=== PATIENT | male | born 1935 | race Caucasian/White ===

== ENCOUNTER → 2017-01-23 | Outpatient (CLI) | payer MEDICARE ==
--- NOTE | 2017-01-23 20:00 | XCELERA REPORT ---
[address] [address] Transthoracic Echocardiogram Report Name: KIMBERLY CRAIG Age: 81 yrs Gender: Male : 1935 Patient Status: Outpatient Patient Location: Study Date: 01/23/2017 01:27 PM Height: 70 in Weight: 211 lb BSA: 2.1 m2 Procedure: A two-dimensional transthoracic echocardiogram with color flow and Doppler was performed. Study Quality: Technically suboptimal. The study was technically difficult with many images being suboptimal in quality. Reason For Study: CARDIOMYOPATHY, PVD History: CARDIOMYOPATHY, PVD. Ordering Physician: LETITIA RAMIREZ Performed By: Pascual Ha Interpretation Summary The left ventricle is normal in size. There is mild concentric left ventricular hypertrophy. LV EF is > than 60% Left ventricular systolic function is normal. Doppler measurements suggest impaired left ventricular relaxation, which is associated with grade I/IV or mild diastolic dysfunction The left ventricular wall motion is normal. The left atrium is mildly dilated. There is no evidence of mitral valve prolapse. There is no mitral valve stenosis. There is no mitral regurgitation noted. There is no aortic valve stenosis There is no LVOT obstruction. No aortic regurgitation is present. There is no tricuspid stenosis. There is a trace to mild amount of tricuspid regurgitation There is mild pulmonary hypertension by echo RVSP is 35 mm of Hg , with RA mean of 10. There is no pericardial effusion. MMode/2D Measurements \T\ Calculations RVDd: 2.8 cm LVIDd: 5.1 cm FS: 35.2 % Ao root diam: 3.3 cm IVSd: 1.2 cm LVIDs: 3.3 cm EDV(Teich): 124.7 ml LVPWd: 1.2 cm ESV(Teich): 44.6 ml Ao root area: 8.4 cm2 EF(Teich): 64.2 % LA dimension: 4.6 cm Doppler Measurements \T\ Calculations MV E max mike: MV P1/2t max mike: Ao V2 max: LV V1 max P.6 cm/sec 111.1 cm/sec 142.7 cm/sec 3.6 mmHg MV A max mike: MV P1/2t: 75.1 msec Ao max PG: LV V1 max: 170.3 cm/sec 8.1 mmHg 95.0 cm/sec MV E/A: 0.64 MVA(P1/2t): 2.9 cm2 MV dec slope: 433.2 cm/sec2 PA V2 max: TR max mike: RAP systole: 88.8 cm/sec 249.1 cm/sec 10.0 mmHg PA max P.2 mmHgTR max P.9 mmHg RVSP(TR): 34.9 mmHg Left Ventricle The left ventricle is normal in size. There is mild concentric left ventricular hypertrophy. LV EF is > than 60%. Left ventricular systolic function is normal. Doppler measurements suggest impaired left ventricular relaxation, which is associated with grade I/IV or mild diastolic dysfunction. The left ventricular wall motion is normal. There is no thrombus. There is no ventricular septal defect visualized. Right Ventricle The right ventricle is grossly normal size. Atria The right atrium is normal. The left atrium is mildly dilated. The interatrial septum is intact with no evidence for an atrial septal defect. Mitral Valve There is mild to moderate mitral annular calcification. There is no evidence of mitral valve prolapse. There is no vegetation seen on the mitral valve. There is no mitral valve stenosis. There is no mitral regurgitation noted. Aortic Valve There is no aortic valvular vegetation. There is no aortic valve stenosis. There is no LVOT obstruction. No aortic regurgitation is present. Tricuspid Valve There is no tricuspid stenosis. There is a trace to mild amount of tricuspid regurgitation. There is mild pulmonary hypertension by echo. RVSP is 35 mm of Hg , with RA mean of 10. Pulmonic Valve There is no pulmonic valvular stenosis. There is no pulmonic valvular regurgitation. Great Vessels The aortic root is not well visualized but is probably normal size. Effusions There is no pericardial effusion. : LETITIA RAMIREZ > Rafaela Arceo
--- NOTE | 2017-01-25 10:55 | RADIOLOGY REPORT (SQ) ---
EXAM DESCRIPTION: ARTERIAL LOWER EXTREM BILAT COMPLETED DATE/TIME: 01/23/2017 3:42 pm REASON FOR STUDY: CARDIOMYOPATHY, PVD I42.9 CARDIOMYOPATHY, UNSPECIFIED I73.9 PERIPHERAL VASCULAR DISEASE, UNSPECIFIED COMPARISON: 10/21/2014 TECHNIQUE: Dynamic and static barajas scale and color images acquired of the lower extremity arteries. Additional selected spectral images recorded. ABIs recorded. LIMITATIONS: None. FINDINGS: RIGHT LEG: ABIS: 0.9 to 1.0 INFLOW ARTERIES: Normal, no obstruction evident. FEMORAL ARTERIES:Multiphasic waveforms. Normal, no velocity elevation to suggest focal stenosis. Norm al color Doppler evaluation. No aneurysm. POPLITEAL ARTERY:Multiphasic waveforms. Normal, no velocity elevation to suggest focal stenosis. Norm al color Doppler evaluation. No aneurysm. PATENT TIBIOPERONEAL TRUNK AND 3 VESSEL RUNOFF: Yes, normal vessels. TBI: Not performed. OTHER: No other significant finding. LEFT LEG: ABIS: Normal, over 1.0. INFLOW ARTERIES: Normal, no obstruction evident. FEMORAL ARTERIES:Multiphasic waveforms. Normal, no velocity elevation to suggest focal stenosis. Norm al color Doppler evaluation. No aneurysm. POPLITEAL ARTERY:Multiphasic waveforms. Normal, no velocity elevation to suggest focal stenosis. Norm al color Doppler evaluation. No aneurysm. PATENT TIBIOPERONEAL TRUNK AND 3 VESSEL RUNOFF: Yes, normal vessels. TBI: Not performed. OTHER: No other significant finding. IMPRESSION: NORMAL BILATERAL LOWER EXTREMITY ARTERIAL DOPPLER WITH ABIs. COMMENT: [facility] NORMAL: Greater than 1.0 MINIMAL DISEASE: 0.9 to 1.0 CLAUDICATION: 0.5 to 0.9 SEVERE ARTERIAL DISEASE: Less than 0.5 [facility] NORMAL: Greater than 1.0 (1.2 If Heavy Calcifications) NORMAL TO MILD ISCHEMIA: 0.8 to 1.0 MODERATE ISCHEMIA: 0.4 to 0.8 SEVERE ISCHEMIA: Less than 0.4 TECHNICAL DOCUMENTATION: JOB ID: [id number]- All Rights Reserved
== END ==
LOC: SP 12:38
PROVIDERS: ATTEND Family Medicine
DX: I42.9 Cardiomyopathy, unspecified (principal); I73.9 Peripheral vascular disease, unspecified; I10 Essential (primary) hypertension
CPT/HCPCS: 93306; 93925

== ENCOUNTER → 2017-10-05 | Outpatient (CLI) | payer MEDICARE | LOC: OD 09:46 | PROVIDERS: ATTEND Physician Assistant Medical | DX: E87.5 Hyperkalemia (principal) | CPT/HCPCS: 36415; 84132 ==

== ENCOUNTER → 2017-12-19 | Outpatient (CLI) | payer MEDICARE ==
--- NOTE | 2017-12-19 16:43 | RADIOLOGY REPORT (SQ) ---
EXAM DESCRIPTION: CHEST PA/LATERAL; RIBS LEFT W/O PA CHEST COMPLETED DATE/TIME: 12/19/2017 4:32 pm REASON FOR STUDY: RIB PAIN, PLEURODYNIA; RIB PAIN R07.81 PLEURODYNIA pain left ribs, radiating into the back. No known injury. 3 weeks of pain COMPARISON: Two-view chest 05/12/2014 TECHNIQUE: PA and lateral views of the chest and additional 4 views of the left ribs acquired. NUMBER OF VIEWS: Six view. LIMITATIONS: None. FINDINGS: CXR: No pneumothorax. No pleural effusion. No atelectasis or infiltrates. Stable mild t o moderate cardiomegaly. Bones are osteopenic. RIBS: No displaced rib fractures. No lytic or blastic bony lesions. OTHER: No other significant finding. IMPRESSION: NO PNEUMOTHORAX. NO DISPLACED RIB FRACTURES. COMMENT: SITE OF TRAUMA/COMPLAINT MARKED/STAMP COMPLETED: Yes TECHNICAL DOCUMENTATION: JOB ID: [id number] [employer]- All Rights Reserved Reading location - IP/workstation name: [facility]
--- NOTE | 2017-12-19 16:43 | RADIOLOGY REPORT (SQ) ---
EXAM DESCRIPTION: CHEST PA/LATERAL; RIBS LEFT W/O PA CHEST COMPLETED DATE/TIME: 12/19/2017 4:32 pm REASON FOR STUDY: RIB PAIN, PLEURODYNIA; RIB PAIN R07.81 PLEURODYNIA pain left ribs, radiating into the back. No known injury. 3 weeks of pain COMPARISON: Two-view chest 05/12/2014 TECHNIQUE: PA and lateral views of the chest and additional 4 views of the left ribs acquired. NUMBER OF VIEWS: Six view. LIMITATIONS: None. FINDINGS: CXR: No pneumothorax. No pleural effusion. No atelectasis or infiltrates. Stable mild t o moderate cardiomegaly. Bones are osteopenic. RIBS: No displaced rib fractures. No lytic or blastic bony lesions. OTHER: No other significant finding. IMPRESSION: NO PNEUMOTHORAX. NO DISPLACED RIB FRACTURES. COMMENT: SITE OF TRAUMA/COMPLAINT MARKED/STAMP COMPLETED: Yes TECHNICAL DOCUMENTATION: JOB ID: [id number] [employer]- All Rights Reserved Reading location - IP/workstation name: [email or web address]
== END ==
LOC: OD 16:10
PROVIDERS: ATTEND Family Medicine
DX: R07.81 Pleurodynia (principal)
CPT/HCPCS: 71046

== ENCOUNTER → 2017-12-26 | Outpatient (CLI) | payer MEDICARE ==
--- NOTE | 2017-12-26 11:18 | RADIOLOGY REPORT (SQ) ---
EXAM DESCRIPTION: CT ABD/PELVIS NO ORAL OR IV COMPLETED DATE/TIME: 12/26/2017 10:50 am REASON FOR STUDY: UNSPECIFIED ABDOMINAL PAIN/LEFT FLANK PAIN R10.9 UNSPECIFIED ABDOMINAL PAIN Left flank pain COMPARISON: 04/28/2014 CT abdomen pelvis TECHNIQUE: CT scan of the abdomen and pelvis performed without intravenous or oral contrast. Images reviewed with lung, soft tissue, and bone windows. Reconstructed coronal and sagittal MPR images revi ewed. All images stored on PACS. All CT scanners at this facility use dose modulation, iterative reconstruction, and/or weight based d osing when appropriate to reduce radiation dose to as low as reasonably achievable (ALARA). [facility]: Dose Right [facility]: CareDose [facility]: Dose Right [facility]: Teradose 4D [facility]: Smart ComVibe RADIATION DOSE: CT Rad equipment meets quality standard of care and radiation dose reduction techniq ues were employed. CTDIvol: 14.5 mGy. DLP: 818 mGy-cm.mGy. LIMITATIONS: None. FINDINGS: LOWER CHEST: Moderate size hiatal hernia. Trace left pleural effusion new compared to . Aortic and mitral valve calcifications. NON-CONTRASTED LIVER, SPLEEN, ADRENALS: Evaluation limited by lack of IV contrast. No identified sign ificant masses. PANCREAS: No masses. No peripancreatic inflammatory changes. GALLBLADDER: No identified stones by CT criteria. No inflammatory changes to suggest cholecystitis. RIGHT KIDNEY AND URETER: No suspicious masses. Assessment limited by lack of IV contrast. No signif icant calcifications. No hydronephrosis or hydroureter. LEFT KIDNEY AND URETER: No suspicious masses. Assessment limited by lack of IV contrast. No signifi cant calcifications. No hydronephrosis or hydroureter. AORTA AND RETROPERITONEUM: No aneurysm. No retroperitoneal masses or adenopathy. BOWEL AND PERITONEAL CAVITY: No CT evidence of free intraperitoneal air or fluid. No bowel obstructi on. Heavy burden of diverticuli along the descending and sigmoid colon without CT signs of acute div erticulitis. No pericolic acute inflammation, abscess, free air or free fluid. APPENDIX: Normal. PELVIS, BLADDER, AND ABDOMINAL WALL:No abnormal masses. No free fluid. Bladder normal. BONES: No significant findings. OTHER: No other significant finding. IMPRESSION: Colonic diverticulosis without CT evidence of diverticulitis. No CT evidence of obstructive urinary stones. Trace left pleural effusion with minimal left basilar airspace disease likely atelectasis. COMMENT: Quality ID # [id number]: Final reports with documentation of one or more dose reduction techniques (e.g., Automated exposure control, adjustment of the mA and/or kV according to patient size, use of iterative reconstruction technique) TECHNICAL DOCUMENTATION: JOB ID: [id number] [employer]- All Rights Reserved Reading location - IP/workstation name: [facility]ON LICENSE OF [facility]
== END ==
LOC: RAD 10:21
PROVIDERS: ATTEND Family Medicine
DX: R10.9 Unspecified abdominal pain (principal)
CPT/HCPCS: 74176

== ENCOUNTER → 2018-06-26 | Outpatient (CLI) | payer MEDICARE ==
--- NOTE | 2018-06-26 09:57 | RADIOLOGY REPORT (SQ) ---
EXAM DESCRIPTION: CHEST PA/LATERAL COMPLETED DATE/TIME: 06/26/2018 9:04 am REASON FOR STUDY: COUGH COMPARISON: 05/12/2014 EXAM PARAMETERS: NUMBER OF VIEWS: two views TECHNIQUE: Digital Frontal and Lateral radiographic views of the chest acquired. RADIATION DOSE: NA LIMITATIONS: none FINDINGS: LUNGS AND PLEURA: Moderate left pleural effusion and associated airspace disease. Right l onofre is clear. MEDIASTINUM AND HILAR STRUCTURES: No masses or contour abnormalities. HEART AND VASCULAR STRUCTURES: Stable heart size. No evidence for failure. BONES: No acute findings. HARDWARE: None in the chest. OTHER: No other significant finding. IMPRESSION: Left lower lobe pneumonia. TECHNICAL DOCUMENTATION: JOB ID: [id number] [employer]- All Rights Reserved Reading location - IP/workstation name: [email or web address]
[2018-06-26 10:08] LABS: ANION GAP 6 (5-19); BLOOD UREA NITROGEN 42 mg/dL (7-20); CALCIUM 8.2 mg/dL (8.4-10.2); CARBON DIOXIDE 24 mmol/L (22-30); CHLORIDE 114 mmol/L (98-107); GLUCOSE 174 mg/dL (75-110); POTASSIUM 4.1 mmol/L (3.6-5.0); SODIUM 143.8 mmol/L (137-145)
== END ==
LOC: OD 08:49
PROVIDERS: ATTEND Family Medicine
DX: I10 Essential (primary) hypertension (principal); R05 Cough
CPT/HCPCS: 36415; 71046; 80048

== ENCOUNTER → 2018-06-28 | Outpatient (CLI) | payer MEDICARE ==
[2018-06-28 10:21] LABS: ABSOLUTE BASOPHILS # (AUTO) 0.1 10^3/uL (0.0-0.2); ABSOLUTE EOSINOPHILS # (AUTO) 0.2 10^3/uL (0.0-0.6); ABSOLUTE LYMPHOCYTES (AUTO) 1.4 10^3/uL (0.5-4.7); ABSOLUTE MONOCYTES (AUTO) 0.5 10^3/uL (0.1-1.4); ABSOLUTE NEUT (AUTO) 5.7 10^3/uL (1.7-8.2); BASOPHILS % (AUTO) 0.8 % (0-2); EOSINOPHILS % (AUTO) 3.1 % (0-6); HEMATOCRIT 33.5 % (37.9-51.0); HEMOGLOBIN 11.3 g/dL (13.5-17.0); LYMPHOCYTES % (AUTO) 18.1 % (13-45); MEAN CORPUSCULAR HEMOGLOBIN 30.2 pg (27.0-33.4); MEAN CORPUSCULAR HGB CONC 33.7 g/dL (32.0-36.0); MEAN CORPUSCULAR VOLUME 90 fl (80-97); MONOCYTES % (AUTO) 6.4 % (3-13); PLATELET COUNT 198 10^3/uL (150-450); RED BLOOD COUNT 3.74 10^6/uL (4.35-5.55); RED CELL DISTRIBUTION WIDTH 16.2 % (11.5-14.0); SEGMENTED NEUTROPHILS % (AUTO) 71.6 % (42-78); TOTAL CELLS COUNTED % (AUTO) 100 %; WHITE BLOOD COUNT 7.9 10^3/uL (4.0-10.5)
[2018-06-28 10:52] LABS: ANION GAP 5 (5-19); BLOOD UREA NITROGEN 43 mg/dL (7-20); CALCIUM 8.2 mg/dL (8.4-10.2); CARBON DIOXIDE 27 mmol/L (22-30); CHLORIDE 110 mmol/L (98-107); GLUCOSE 164 mg/dL (75-110); POTASSIUM 4.5 mmol/L (3.6-5.0); SODIUM 141.7 mmol/L (137-145)
== END ==
LOC: OD 09:10
PROVIDERS: ATTEND Family Medicine
DX: N18.9 Chronic kidney disease, unspecified (principal)
CPT/HCPCS: 36415; 80048; 85025

== ENCOUNTER → 2018-07-05 | Outpatient (CLI) | payer MEDICARE ==
--- NOTE | 2018-07-05 09:50 | RADIOLOGY REPORT (SQ) ---
EXAM DESCRIPTION: CHEST PA/LATERAL COMPLETED DATE/TIME: 07/05/2018 9:03 am REASON FOR STUDY: PNEUMONIA OF LEFT LOWER LOBE DUE TO INFECTIOUS ORGANISM COMPARISON: Chest films 12/19/2014 Left rib detail films 12/19/2017 Two-view chest 06/26/2018 EXAM PARAMETERS: NUMBER OF VIEWS: two views TECHNIQUE: Digital Frontal and Lateral radiographic views of the chest acquired. RADIATION DOSE: NA LIMITATIONS: none FINDINGS: LUNGS AND PLEURA: Left basilar airspace disease is present, atelectasis versus pneumonia. There is a left-sided pleural effusion present, small moderate size. Decubitus views of the chest w ould be useful to determine how much fluid is present. Right lung clear. No right pleural effusion. No right or left pneumothorax MEDIASTINUM AND HILAR STRUCTURES: No masses or contour abnormalities. HEART AND VASCULAR STRUCTURES: Mild cardiomegaly BONES: No acute findings. HARDWARE: None in the chest. OTHER: No other significant finding. IMPRESSION: Left basilar consolidation atelectasis versus pneumonia. Suspect small left pleural eff usion. Recommend decubitus plain films of the chest, or CT chest for followup TECHNICAL DOCUMENTATION: JOB ID: [id number]- All Rights Reserved Reading location - IP/workstation name: [email or web address]
== END ==
LOC: OD 08:47
PROVIDERS: ATTEND Family Medicine
DX: J18.1 Lobar pneumonia, unspecified organism (principal)
CPT/HCPCS: 71046

== ENCOUNTER → 2018-07-11 | Outpatient (CLI) | payer MEDICARE ==
--- NOTE | 2018-07-11 10:37 | RADIOLOGY REPORT (SQ) ---
EXAM DESCRIPTION: U/S LTD DUPLEX ART/EARNEST FLOW COMPLETED DATE/TIME: 07/11/2018 9:51 am REASON FOR STUDY: CHRONIC KIDNEY DISEASE, STAGE 3 (MODERAT N18.3 CHRONIC KIDNEY DISEASE, STAGE 3 (M ODERATE) I50.9 HEART FAILURE, UNSPECIFIED COMPARISON: CT abdomen pelvis 12/26/2017 TECHNIQUE: Realtime and static grayscale images acquired. Selected color Doppler, velocities and spe ctral images recorded. LIMITATIONS: Body habitus, midline bowel gas. Remainder of the visualized the renal artery origins off the aorta FINDINGS: RIGHT KIDNEY: RENAL ARTERY VELOCITIES: At the hilum, 64 cm/sec. Segmental artery velocity 54 cm/sec. RENAL VEIN: Color doppler flow present, patent. VELOCITY RATIO: Normal. Normal waveforms. KIDNEY: 9 cm in length with diffuse cortical thinning and increased echogenicity. LEFT KIDNEY: RENAL ARTERY VELOCITIES: At the hilum, 75 cm/sec. Segmental artery velocity 37 cm/sec. RENAL VEIN: Color doppler flow present, patent. VELOCITY RATIO: Normal. Normal waveforms. KIDNEY: 8.5 cm in length with diffuse cortical thinning and increased echogenicity BLADDER: Decompressed, not well seen. OTHER: No other significant finding. IMPRESSION: NO DOPPLER EVIDENCE OF HEMODYNAMICALLY SIGNIFICANT RENAL ARTERY STENOSIS. COMMENT: NORMAL RENAL ARTERY/AORTA VELOCITY RATIO IS LESS THAN OR EQUAL TO 3.5. TECHNICAL DOCUMENTATION: JOB ID: [id number] [employer]- All Rights Reserved Reading location - IP/workstation name: [email or web address]
== END ==
LOC: RAD 08:59
PROVIDERS: ATTEND Internal Medicine Nephrology
DX: I13.0 Hypertensive heart and chronic kidney disease with heart failure and stage 1 through stage 4 chronic kidney disease, or unspecified chronic kidney disease (principal); N18.3 Chronic kidney disease, stage 3 (moderate); I50.9 Heart failure, unspecified; R06.00 Dyspnea, unspecified
CPT/HCPCS: 93976

== ENCOUNTER → 2018-07-19 | Outpatient (CLI) | payer MEDICARE ==
--- NOTE | 2018-07-19 15:45 | RADIOLOGY REPORT (SQ) ---
EXAM DESCRIPTION: CHEST PA/LATERAL COMPLETED DATE/TIME: 07/19/2018 2:50 pm REASON FOR STUDY: L LOWER LOBE PNEUMONIA, UNSPECIFIED ORGANISM COMPARISON: 07/05/2018 EXAM PARAMETERS: NUMBER OF VIEWS: two views TECHNIQUE: Digital Frontal and Lateral radiographic views of the chest acquired. RADIATION DOSE: NA LIMITATIONS: none FINDINGS: LUNGS AND PLEURA: There is persistent left lower lobe consolidation along with pleural eff usion. Right lung field remains clear. No pneumothorax. MEDIASTINUM AND HILAR STRUCTURES: No masses or contour abnormalities. HEART AND VASCULAR STRUCTURES: Heart normal size. No evidence for failure. BONES: No acute findings. HARDWARE: None in the chest. OTHER: No other significant finding. IMPRESSION: Minimal change in the chest with persistent left lower lobe pneumonia and probable effus ion. TECHNICAL DOCUMENTATION: JOB ID: [id number] [employer]- All Rights Reserved Reading location - IP/workstation name: [email or web address]
== END ==
LOC: OD 14:40
PROVIDERS: ATTEND Family Medicine
DX: J18.1 Lobar pneumonia, unspecified organism (principal)
CPT/HCPCS: 71046

== ENCOUNTER → 2018-07-23 | Outpatient (CLI) | payer MEDICARE ==
[2018-07-23 09:29] LABS: ABSOLUTE BASOPHILS # (AUTO) 0.1 10^3/uL (0.0-0.2); ABSOLUTE EOSINOPHILS # (AUTO) 0.3 10^3/uL (0.0-0.6); ABSOLUTE LYMPHOCYTES (AUTO) 1.1 10^3/uL (0.5-4.7); ABSOLUTE MONOCYTES (AUTO) 0.6 10^3/uL (0.1-1.4); ABSOLUTE NEUT (AUTO) 4.5 10^3/uL (1.7-8.2); BASOPHILS % (AUTO) 1.1 % (0-2); EOSINOPHILS % (AUTO) 4.5 % (0-6); HEMATOCRIT 30.8 % (37.9-51.0); HEMOGLOBIN 10.5 g/dL (13.5-17.0); LYMPHOCYTES % (AUTO) 16.4 % (13-45); MEAN CORPUSCULAR HEMOGLOBIN 30.8 pg (27.0-33.4); MEAN CORPUSCULAR VOLUME 91 fl (80-97); MONOCYTES % (AUTO) 8.7 % (3-13); PLATELET COUNT 187 10^3/uL (150-450); RED BLOOD COUNT 3.41 10^6/uL (4.35-5.55); RED CELL DISTRIBUTION WIDTH 16.2 % (11.5-14.0); SEGMENTED NEUTROPHILS % (AUTO) 69.3 % (42-78); TOTAL CELLS COUNTED % (AUTO) 100 %; WHITE BLOOD COUNT 6.5 10^3/uL (4.0-10.5)
[2018-07-23 10:05] LABS: ALANINE AMINOTRANSFERASE 15 U/L (21-72); ALKALINE PHOSPHATASE 105 U/L (38-126); ANION GAP 7 (5-19); ASPARTATE AMINO TRANSFERASE 12 U/L (17-59); BILIRUBIN,DIRECT 0.3 mg/dL (0.0-0.4); BILIRUBIN,TOTAL 0.6 mg/dL (0.2-1.3); BLOOD UREA NITROGEN 61 mg/dL (7-20); CALCIUM 8.5 mg/dL (8.4-10.2); CARBON DIOXIDE 27 mmol/L (22-30); CHLORIDE 110 mmol/L (98-107); GLUCOSE 236 mg/dL (75-110); POTASSIUM 4.8 mmol/L (3.6-5.0); SODIUM 144.1 mmol/L (137-145); TOTAL PROTEIN 5.6 g/dL (6.3-8.2)
== END ==
LOC: OD 08:52
PROVIDERS: ATTEND Family Medicine
DX: I12.9 Hypertensive chronic kidney disease with stage 1 through stage 4 chronic kidney disease, or unspecified chronic kidney disease (principal); N18.9 Chronic kidney disease, unspecified; E11.22 Type 2 diabetes mellitus with diabetic chronic kidney disease; E78.49 Other hyperlipidemia
CPT/HCPCS: 36415; 80053; 83036; 85025

== ENCOUNTER → 2018-07-24 | Outpatient (CLI) | payer MEDICARE ==
[2018-07-24 11:46] LABS: HEMATOCRIT 30.7 % (37.9-51.0); HEMOGLOBIN 10.5 g/dL (13.5-17.0); MEAN CORPUSCULAR HEMOGLOBIN 30.8 pg (27.0-33.4); MEAN CORPUSCULAR HGB CONC 34.2 g/dL (32.0-36.0); MEAN CORPUSCULAR VOLUME 90 fl (80-97); PLATELET COUNT 176 10^3/uL (150-450); RED BLOOD COUNT 3.41 10^6/uL (4.35-5.55); RED CELL DISTRIBUTION WIDTH 16.5 % (11.5-14.0); WHITE BLOOD COUNT 6.2 10^3/uL (4.0-10.5)
[2018-07-24 12:07] LABS: ANION GAP 9 (5-19); BLOOD UREA NITROGEN 58 mg/dL (7-20); CALCIUM 8.6 mg/dL (8.4-10.2); CARBON DIOXIDE 25 mmol/L (22-30); CHLORIDE 109 mmol/L (98-107); GLUCOSE 261 mg/dL (75-110); POTASSIUM 4.5 mmol/L (3.6-5.0); SODIUM 142.7 mmol/L (137-145)
== END ==
LOC: OD 10:32
PROVIDERS: ATTEND Internal Medicine Nephrology
DX: N18.3 Chronic kidney disease, stage 3 (moderate) (principal); I50.9 Heart failure, unspecified; E87.5 Hyperkalemia
CPT/HCPCS: 36415; 80048; 83735; 85027

== ENCOUNTER → 2018-07-25 | Outpatient (CLI) | payer MEDICARE ==
--- NOTE | 2018-07-25 14:09 | RADIOLOGY REPORT (SQ) ---
EXAM DESCRIPTION: CT CHEST WITHOUT COMPLETED DATE/TIME: 07/25/2018 1:57 pm REASON FOR STUDY: J90 PLEURAL EFFUSION, NOT ELSEWHERE CLASSIFIED J90 PLEURAL EFFUSION, NOT ELSEWHER E CLASSIFIED COMPARISON: Two-view chest 07/19/2018, 07/05/2018, 06/26/2018 TECHNIQUE: CT scan performed of the chest without intravenous contrast. Images reviewed with lung, soft tissue and bone windows. Reconstructed coronal and sagittal MPR images reviewed. All images st ored on PACS. All CT scanners at this facility use dose modulation, iterative reconstruction, and/or weight based d osing when appropriate to reduce radiation dose to as low as reasonably achievable (ALARA). [facility]: Dose Right [facility]: CareDose [facility]: Dose Right [facility]: Teradose 4D [facility]: [employer] RADIATION DOSE: 13.3 mGy. LIMITATIONS: No technical limitations. FINDINGS: LUNGS AND PLEURA: Moderate freely layering left pleural effusion, similar compared to prio r chest films dating back to 06/26/2018. There is bandlike atelectasis in the left posterior lower lobe. No right pleural effusion. No focal right-sided infiltrates. No right or left pneumothorax. HILAR AND MEDIASTINAL STRUCTURES: No identified masses or abnormal nodes. No obvious aneurysm. HEART AND VASCULAR STRUCTURES: No aneurysm. No pericardial effusion. Calcified coronary arteries, m itral annulus and aortic valve. No ascending thoracic aorta ectasia. UPPER ABDOMEN: Varices are present along the greater curvature of the stomach. No hepatosplenomegaly . Small hiatal hernia. THYROID AND OTHER SOFT TISSUES: No masses. No adenopathy. BONES: No significant finding. HARDWARE: None in the chest. OTHER: No other significant findings. IMPRESSION: Moderate size freely layering left pleural effusion, adjacent left basilar atelectasis TECHNICAL DOCUMENTATION: JOB ID: [id number] Quality ID # [id number]: Final reports with documentation of one or more dose reduction techniques (e.g., Au tomated exposure control, adjustment of the mA and/or kV according to patient size, use of iterative reconstruction technique) 2010 [employer]- All Rights Reserved Reading location - IP/workstation name: [email or web address]
== END ==
LOC: RAD 14:05
PROVIDERS: ATTEND Family Medicine
DX: J90 Pleural effusion, not elsewhere classified (principal)
CPT/HCPCS: 71250

== ENCOUNTER 2018-07-26 09:10 | Inpatient (IN) | payer MEDICARE ==
--- NOTE | 2018-07-26 09:39 | ER Document Report ---
ED General - General Chief Complaint: Abnormal Lab Results Stated Complaint: SIDE PAIN Time Seen by Provider: 07/26/18 09:33 Primary Care Provider: Genaro WANG MD [Primary Care Provider] - Follow up as needed Notes: Chief complaint: Shortness of breath on exertion History of complain:( obtained from----patient) 83 years old male sent over here by primary care physician Dr. Faulkner for direct admission. Because of shortness of breath on exertion and recent CT showed left pleural effusion. Onset: Gradual Duration: Last few days Severity: Mild to moderate Quality: Shortness of breath Context: Unknown Exacerbating factor and relieving factors: Exertion REVIEW OF SYSTEMS: CONSTITUTIONAL : Denies fever, chills, or sweats. Denies recent illness. EENT: Denies eye, ear, throat, or mouth pain or symptoms. Denies nasal or sinus congestion or discharge. Denies throat, tongue, or mouth swelling or difficulty swallowing. CARDIOVASCULAR: Denies chest pain. Denies palpitations or racing or irregular heart beat. Denies ankle edema. RESPIRATORY: Denies cough, cold, GASTROINTESTINAL: Denies distention. Denies nausea, vomiting, or diarrhea. Denies blood in vomitus, stools, or per rectum. Denies black, tarry stools. Denies constipation. GENITOURINARY: Denies difficulty urinating, painful urination, burning, frequency, blood in urine, or discharge. FEMALE GENITOURINARY: Denies vaginal bleeding, heavy or abnormal periods, irregular periods. Denies vaginal discharge or odor. MUSCULOSKELETAL: Denies back or neck pain or stiffness. Denies joint pain or swelling. SKIN: Denies rash, lesions or sores. HEMATOLOGIC : Denies easy bruising or bleeding. LYMPHATIC: Denies swollen, enlarged glands. NEUROLOGICAL: Denies confusion or altered mental status. Denies passing out or loss of consciousness. Denies dizziness or lightheadedness. Denies headache. Denies weakness or paralysis or loss of use of either side. Denies problems with gait or speech. Denies sensory loss, numbness, or tingling. Denies seizures. PSYCHIATRIC: Denies anxiety or stress. Denies depression, suicidal ideation, or homicidal ideation. ALL OTHER SYSTEMS REVIEWED AND NEGATIVE. PHYSICAL EXAMINATION: GENERAL: Well-appearing, well-nourished and in no acute distress. HEAD: Atraumatic, normocephalic. EYES: Pupils equal round and reactive to light, extraocular movements intact, conjunctiva are normal. ENT: Nares patent, oropharynx clear without exudates. Moist mucous membranes. NECK: Normal range of motion, supple without lymphadenopathy LUNGS: Bilaterally diminished breath sounds HEART: Regular rate and rhythm without murmurs ABDOMEN: Soft, nontender, nondistended abdomen. No guarding, no rebound. No masses appreciated. Examination of genitals-deferred Musculoskeletal: Bilateral lower leg 1-2+ pitting edema NEUROLOGICAL: Cranial nerves grossly intact. Normal speech, normal gait. Normal sensory, motor exams PSYCH: Normal mood, normal affect. SKIN: Warm, Dry, normal turgor, no rashes or lesions noted. Dictation was performed using [employer] voice recognition software TRAVEL OUTSIDE OF THE [place] IN LAST 30 DAYS: No - HPI Notes: Dictated - Related Data Allergies/Adverse Reactions: No Known Allergies Allergy (Verified 07/26/18 09:11) Past Medical History - Social History Smoking Status: Unknown if Ever Smoked Frequency of alcohol use: None Drug Abuse: None Lives with: Family Family History: Reviewed & Not Pertinent - Past Medical History Cardiac Medical History: Reports: Hx Hypertension Denies: Hx Coronary Artery Disease, Hx Heart Attack Pulmonary Medical History: Denies: Hx Asthma, Hx Bronchitis, Hx COPD, Hx Pneumonia Neurological Medical History: Denies: Hx Cerebrovascular Accident, Hx Seizures Endocrine Medical History: Reports: Hx Diabetes Mellitus Type 2 Renal/ Medical History: Reports: Hx Kidney Stones Musculoskeletal Medical History: Denies Hx Arthritis - Immunizations Hx Diphtheria, Pertussis, Tetanus Vaccination: Yes Hx Pneumococcal Vaccination: 03/12/15 Review of Systems - Review of Systems Notes: Dictated Physical Exam - Vital signs Vitals: Temp Pulse Resp BP Pulse Ox 97.3 F 64 18 101/52 L 97 07/26/18 09:24 07/26/18 09:24 07/26/18 09:24 07/26/18 09:24 07/26/18 09:24 - Notes Notes: Dictated Course - Vital Signs Vital signs: Temp Pulse Resp BP Pulse Ox 97.3 F 64 18 101/52 L 97 07/26/18 09:24 07/26/18 09:24 07/26/18 09:24 07/26/18 09:24 07/26/18 09:24 Discharge - Discharge Clinical Impression: Pleural effusion Condition: Fair Disposition: ADMITTED INPATIENT Admitting Provider: Kaushik Referrals: Genaro WANG MD [Primary Care Provider] - Follow up as needed
[2018-07-26 10:24] LABS: ABSOLUTE BASOPHILS # (AUTO) 0.1 10^3/uL (0.0-0.2); ABSOLUTE EOSINOPHILS # (AUTO) 0.4 10^3/uL (0.0-0.6); ABSOLUTE LYMPHOCYTES (AUTO) 1.4 10^3/uL (0.5-4.7); ABSOLUTE MONOCYTES (AUTO) 0.6 10^3/uL (0.1-1.4); ABSOLUTE NEUT (AUTO) 4.2 10^3/uL (1.7-8.2); BASOPHILS % (AUTO) 1.2 % (0-2); EOSINOPHILS % (AUTO) 5.6 % (0-6); HEMATOCRIT 32.5 % (37.9-51.0); LYMPHOCYTES % (AUTO) 21.2 % (13-45); MEAN CORPUSCULAR HEMOGLOBIN 31.1 pg (27.0-33.4); MEAN CORPUSCULAR VOLUME 92 fl (80-97); MONOCYTES % (AUTO) 8.5 % (3-13); PLATELET COUNT 198 10^3/uL (150-450); RED BLOOD COUNT 3.55 10^6/uL (4.35-5.55); RED CELL DISTRIBUTION WIDTH 16.5 % (11.5-14.0); SEGMENTED NEUTROPHILS % (AUTO) 63.5 % (42-78); TOTAL CELLS COUNTED % (AUTO) 100 %; WHITE BLOOD COUNT 6.6 10^3/uL (4.0-10.5)
--- NOTE | 2018-07-26 10:45 | EKG REPORT ---
SEVERITY:- NORMAL ECG - SINUS RHYTHM : Confirmed by: Rafaela Arceo MD 26-Jul-2018 10:44:53
[2018-07-26 10:53] LABS: ALANINE AMINOTRANSFERASE 16 U/L (21-72); ALBUMIN 3.2 g/dL (3.5-5.0); ALKALINE PHOSPHATASE 120 U/L (38-126); ANION GAP 7 (5-19); ASPARTATE AMINO TRANSFERASE 13 U/L (17-59); BILIRUBIN,DIRECT 0.4 mg/dL (0.0-0.4); BILIRUBIN,TOTAL 0.5 mg/dL (0.2-1.3); BLOOD UREA NITROGEN 55 mg/dL (7-20); CALCIUM 8.5 mg/dL (8.4-10.2); CARBON DIOXIDE 27 mmol/L (22-30); CHLORIDE 110 mmol/L (98-107); GLUCOSE 206 mg/dL (75-110); POTASSIUM 4.3 mmol/L (3.6-5.0); SODIUM 144.4 mmol/L (137-145); TOTAL PROTEIN 5.8 g/dL (6.3-8.2)
[2018-07-26] MEDS ORDERED: CEFEPIME 1 GM/D5W RTU 1 GM/50 ML RTUPB IV SCH (11:00)
[2018-07-26 11:11] LABS: INTERNATIONAL RATION (INR) 1.03
[2018-07-26] MEDS ORDERED: DEXTROSE 50%-WATER 25 GM/50 ML DISP.SYRIN IV PRN ×2 (11:29)
[2018-07-26] MEDS ORDERED: DEXTROSE 40% GEL 15 GM TUBE PO PRN ×2 (11:29)
[2018-07-26] MEDS ORDERED: GLUCAGON,HUMAN RECOMB 1 MG INJ IM PRN (11:29)
[2018-07-26] MEDS: INSULIN GLARGINE,HUM.REC.ANLOG 300 UNIT/3 ML INSULN.PEN SUBCUT SCH ×2 (12:40→21:35)
--- NOTE | 2018-07-26 15:40 | RADIOLOGY REPORT (SQ) ---
EXAM DESCRIPTION: CHEST SINGLE VIEW COMPLETED DATE/TIME: 07/26/2018 3:26 pm REASON FOR STUDY: S/P LEFT THORACENTESIS COMPARISON: Two-view chest 07/19/2018 CT chest 07/25/2018 EXAM PARAMETERS: NUMBER OF VIEWS: One view. TECHNIQUE: Single frontal radiographic view of the chest acquired. RADIATION DOSE: NA LIMITATIONS: None. FINDINGS: LUNGS AND PLEURA: Post left thoracentesis with removal of 800 mL of clear yellow fluid, se nt for testing as per Dr. Faulkner. No pneumothorax left chest. Minimal left basilar atelectasis. Right lung well inflated and clear. No right pleural effusion or pneumothorax. MEDIASTINUM AND HILAR STRUCTURES: No masses. Contour normal. HEART AND VASCULAR STRUCTURES: Mild cardiomegaly, stable BONES: No acute findings. HARDWARE: None in the chest. OTHER: No other significant finding. IMPRESSION: No pneumothorax post left thoracentesis. Minimal persistent left basilar atelectasis. TECHNICAL DOCUMENTATION: JOB ID: [id number] [employer]- All Rights Reserved Reading location - IP/workstation name: [email or web address]
--- NOTE | 2018-07-26 15:43 | RADIOLOGY REPORT (SQ) ---
EXAM DESCRIPTION: U/S THORACENTESIS WITH IMAGING COMPLETED DATE/TIME: 07/26/2018 3:34 pm REASON FOR STUDY: plueal effusion COMPARISON: None. LIMITATIONS: None. PROCEDURE: Procedure, risks, benefit, and alternative explained to patient who then gave written con sent. The posterior left chest wall was marked using ultrasound guidance. A time-out was called for correct marking verification. Chest prepped and draped using sterile technique. Local anesthesia ac hieved using 6 ml of 1% lidocaine injection. A 6fr Safe-T- Centesis set was introduced into the left pleural space. Fluid was aspirated. The catheter was removed and the entry site was covered with s terile bandage. No immediate complications noted. Fluid was sent for testing as per Dr. Faulkner. No p neumothorax on immediate post procedure chest film Images acquired during the procedure were stored on PACS. FINDINGS: ENTRY SITE: Posterior left chest FLUID VOLUME: 800 mL FLUID ANALYSIS: Clear yellow fluid OTHER: Fluid sent to the lab for testing. IMPRESSION: SUCCESSFUL THORACENTESIS USING ULTRASOUND GUIDANCE. COMMENT: Patient medication list reviewed: Yes- Quality ID# [id number]:Eligible professional attests to doc umenting in the medical record they obtained, updated, or reviewed the patient's current medications. TECHNICAL DOCUMENTATION: JOB ID: [id number] [employer]- All Rights Reserved Reading location - IP/workstation name: [email or web address]
[2018-07-26] MEDS: HYDRALAZINE HCL 25 MG TABLET PO SCH ×2 (16:04→21:35)
[2018-07-26 16:42] LABS: FLUID APPEARANCE HAZY; FLUID COLOR LIGHT YELLOW; FLUID TYPE PLEURAL; FLUID VISCOSITY LIQUID
--- NOTE | 2018-07-26 17:15 | PDOC H&P ---
History of Present Illness Admission Date/PCP: 07/26/18 10:03 Genaro YANES MD Patient complains of: Left-sided pleural effusion History of Present Illness: KIMBERLY CRAIG is a 83 year old male This is a 83-year-old male with a history of chronic kidney disease stage IV hypertension type 2 diabetes mellitus congestive heart failure multiple medical issues recently started with the cough congestions 4 weeks back diagnosed with a pneumonia start on Omnicef Patient not feeling well patient's baseline creatinine was 2.7 is getting worse to the 4.7 Patient still feeling tired fatigue Patient's blood pressure is also elevated adjust the blood pressure medication as outpatient 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 had a echocardiogram done 2 days ba ck was all stable with normal EF Patient had a CT of the chest done yesterday with source the left-sided pleural effusion with the patient's not feeling well decided to admit in the hospital for thoracocentesis and further evaluations Past Medical History Cardiac Medical History: Reports: Hypertension Denies: Coronary Artery Disease, Myocardial Infarction Pulmonary Medical History: Denies: Asthma, Bronchitis, Chronic Obstructive Pulmonary Disease (COPD), Pneumonia Neurological Medical History: Denies: Seizures Endocrine Medical History: Reports: Diabetes Mellitus Type 2 GI Medical History: Reports: Gastroesophageal Reflux Disease Musculoskeltal Medical History: Denies: Arthritis Hematology: Reports: Anemia Social History Lives with: Family Smoking Status: Unknown if Ever Smoked Family History Family History: Reviewed & Not Pertinent Parental Family History Reviewed: Yes Children Family History Reviewed: Yes Sibling(s) Family History Reviewed.: Yes Medication/Allergy Home Medications: Allopurinol [Zyloprim 100 Mg Tablet] 100 mg PO DAILY 09/28/11 Amlodipine Besylate [Norvasc 5 mg Tablet] 5 mg PO Q12 09/28/11 Aspirin [Aspirin 81 mg Chewable Tablet] 81 mg PO DAILY 09/28/11 Carvedilol [Coreg 25 mg Tablet] 25 mg PO BID 07/22/14 Atorvastatin Calcium [Lipitor 40 mg Tablet] 40 mg PO QHS 07/26/18 Calcitriol [Rocaltrol] 0.25 mcg PO MOFR@1000 07/26/18 Cefdinir [Omnicef 300 mg Capsule] 1 cap PO BID 07/26/18 Ferrous Sulfate [Feosol] 325 mg PO DAILY 07/26/18 Furosemide [Lasix 40 mg Tablet] 40 mg PO BID 07/26/18 Hydralazine HCl [Apresoline 25 mg Tablet] 25 mg PO TID 07/26/18 Insulin Aspart [Novolog Flexpen] See Protocol SQ AC PRN 07/26/18 Insulin Glargine,Hum.rec.anlog [Lantus Insulin 100 Unit/1 ml 10 ml] See Protocol SQ BID 07/26/18 Levothyroxine Sodium [Synthroid 0.1 mg Tablet] 0.1 mg PO Q6AM 07/26/18 Losartan Potassium [Cozaar 100 mg Tablet] 100 mg PO DAILY 07/26/18 Omeprazole 20 mg PO Q6AM 07/26/18 Sodium Bicarbonate [Antacid] 650 mg PO BID 07/26/18 Tamsulosin HCl [Flomax] 0.4 mg PO DAILY 07/26/18 Allergies/Adverse Reactions: No Known Allergies Allergy (Verified 07/26/18 14:15) Review of Systems Constitutional: PRESENT: chills, fatigue. ABSENT: fever(s), headache(s), weight gain, weight loss Eyes: ABSENT: visual disturbances Ears: ABSENT: hearing changes Cardiovascular: PRESENT: dyspnea on exertion. ABSENT: chest pain, edema, orthropnea, palpitations Respiratory: PRESENT: cough. ABSENT: hemoptysis Gastrointestinal: ABSENT: abdominal pain, constipation, diarrhea, hematemesis, hematochezia, nausea, vomiting Genitourinary: ABSENT: dysuria, hematuria Musculoskeletal: ABSENT: joint swelling Integumentary: ABSENT: rash, wounds Neurological: ABSENT: abnormal gait, abnormal speech, confusion, dizziness, focal weakness, syncope Psychiatric: ABSENT: anxiety, depression, homidical ideation, suicidal ideation Endocrine: ABSENT: cold intolerance, heat intolerance, menstrual abnormalities, polydipsia, polyuria Hematologic/Lymphatic: ABSENT: easy bleeding, easy bruising, lymphadenopathy Physical Exam Vital Signs: Temp Pulse Resp BP Pulse Ox 97.3 F 64 17 146/56 H 98 07/26/18 09:24 07/26/18 09:24 07/26/18 14:01 07/26/18 14:01 07/26/18 14:01 Intake & Output 07/25/18 07/26/18 07/27/18 06:59 06:59 06:59 Intake Total 50 Output Total 250 Balance -200 Weight 219.1 kg General appearance: PRESENT: no acute distress, well-developed, well-nourished Head exam: PRESENT: atraumatic, normocephalic Eye exam: PRESENT: conjunctiva pink, EOMI, PERRLA. ABSENT: scleral icterus Ear exam: PRESENT: normal external ear exam Mouth exam: PRESENT: moist, tongue midline Neck exam: PRESENT: full ROM. ABSENT: carotid bruit, JVD, lymphadenopathy, thyromegaly Respiratory exam: PRESENT: clear to auscultation bonifacio Cardiovascular exam: PRESENT: RRR. ABSENT: diastolic murmur, rubs, systolic murmur Pulses: PRESENT: normal dorsalis pedis pul, +2 pedal pulses bilateral Vascular exam: PRESENT: normal capillary refill GI/Abdominal exam: PRESENT: normal bowel sounds, soft. ABSENT: distended, guarding, mass, organolmegaly, rebound, tenderness Rectal exam: PRESENT: deferred Musculoskeletal exam: PRESENT: ambulatory Neurological exam: PRESENT: alert, awake, oriented to person, oriented to place, oriented to time, oriented to situation, CN II-XII grossly intact. ABSENT: motor sensory deficit Psychiatric exam: PRESENT: appropriate affect, normal mood. ABSENT: homicidal ideation, suicidal ideation Skin exam: PRESENT: dry, intact, warm. ABSENT: cyanosis, rash Results Laboratory Results: 07/26/18 10:10 07/26/18 10:10 07/26/18 07/26/18 10:10 10:10 WBC 6.6 RBC 3.55 L Hgb 11.0 L Hct 32.5 L MCV 92 MCH 31.1 MCHC 34.0 RDW 16.5 H Plt Count 198 Seg Neutrophils % 63.5 Lymphocytes % 21.2 Monocytes % 8.5 Eosinophils % 5.6 Basophils % 1.2 Absolute Neutrophils 4.2 Absolute Lymphocytes 1.4 Absolute Monocytes 0.6 Absolute Eosinophils 0.4 Absolute Basophils 0.1 Sodium 144.4 Potassium 4.3 Chloride 110 H Carbon Dioxide 27 Anion Gap 7 BUN 55 H Creatinine 4.16 H Est GFR ( Amer) 17 L Est GFR (Non-Af Amer) 14 L Glucose 206 H Calcium 8.5 Total Bilirubin 0.5 AST 13 L ALT 16 L Alkaline Phosphatase 120 Total Protein 5.8 L Albumin 3.2 L Impressions: Chest X-Ray 07/26/18 00:00 IMPRESSION: No pneumothorax post left thoracentesis. Minimal persistent left basilar atelectasis. Thoracentesis Ultrasound 07/26/18 10:59 IMPRESSION: SUCCESSFUL THORACENTESIS USING ULTRASOUND GUIDANCE. Assessment & Plan - Diagnosis (1) Pleural effusion Is this a current diagnosis for this admission?: Yes Plan: With the recent diagnosis with the pneumonia with the low albumin and heart failure and kidney failure we will get the thoracocentesis to rule out the other etiology (2) Acute renal failure Qualifiers: Acute renal failure type: unspecified Qualified Code(s): N17.9 - Acute kidney failure, unspecified Is this a current diagnosis for this admission?: Yes Plan: With the Dr. 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 insulin use: unspecified assisted insulin use status Diabetes mellitus complication status: with unspecified complications Qualified Code(s): E11.8 - Type 2 diabetes mellitus with unspecified complica tions Is this a current diagnosis for this admission?: Yes Plan: Continues to current insulin and sliding scale (6) Hyperlipemia Qualifiers: Hyperlipidemia type: unspecified Qualified Code(s): E78.5 - Hyperlipidemia, unspecified Is this a current diagnosis for this admission?: Yes (7) Coronary artery disease Qualifiers: Coronary Disease-Associated Artery/Lesion type: unspecified vessel or lesion type Associated angina: without angina Is this a current diagnosis for this admission?: Yes Plan: Patient's recent cardiology workup is stable (8) Congestive heart failure Qualifiers: Heart failure type: diastolic Heart failure chronicity: chronic Qualified Code(s): I50.32 - Chronic diastolic (congestive) heart failure Is this a current diagnosis for this admission?: Yes Plan: Into the Dr. Arceo patient's recent echocardiogram with a normal EF - Time Time Spent: 30 to 50 Minutes Medications reviewed and adjusted accordingly: Yes Anticipated discharge: Home Within: Other - Inpatient Certification Based on my medical assessment, after consideration of the patient's comorbidities, presenting symptoms, or acuity I expect that the services needed warrant INPATIENT care.: Yes I certify that my determination is in accordance with my understanding of Medicare's requirements for reasonable and necessary INPATIENT services [42 CFR 412.3e].: Yes Medical Necessity: Failure to Improve With Outpatient Therapy, Significant Comorbidiites Make Outpatient Treatment Too Risky, Need for IV Antibiotics 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
[2018-07-26] MEDS: INSULIN LISPRO 100 UNIT/ML 3 ML VIAL SUBCUT SCH (17:38)
--- NOTE | 2018-07-26 18:05 | RADIOLOGY REPORT (SQ) ---
EXAM DESCRIPTION: CHEST SINGLE VIEW COMPLETED DATE/TIME: 07/26/2018 5:35 pm REASON FOR STUDY: 2 HOURS S/P LEFT THORACENTESIS COMPARISON: 07/26/2018 EXAM PARAMETERS: NUMBER OF VIEWS: One view. TECHNIQUE: Single frontal radiographic view of the chest acquired. RADIATION DOSE: NA LIMITATIONS: None. FINDINGS: LUNGS AND PLEURA: No pneumothorax. Minimal atelectasis in the left base. No interval sue nge. MEDIASTINUM AND HILAR STRUCTURES: No masses. Contour normal. HEART AND VASCULAR STRUCTURES: Heart size is borderline. No pulmonary edema. BONES: No acute findings. HARDWARE: None in the chest. OTHER: No other significant finding. IMPRESSION: No pneumothorax. Minimal subsegmental atelectasis in the left base. Borderline heart s ize with no pulmonary edema. TECHNICAL DOCUMENTATION: JOB ID: [id number] [employer]- All Rights Reserved Reading location - IP/workstation name: [email or web address]
[2018-07-26] MEDS: CARVEDILOL 12.5 MG TABLET PO SCH (21:22)
[2018-07-26] MEDS: FUROSEMIDE 40 MG TABLET PO SCH (21:34)
[2018-07-26] MEDS: SODIUM BICARBONATE 650 MG TABLET PO SCH (21:35)
[2018-07-26] MEDS: AMLODIPINE BESYLATE 5 MG TABLET PO SCH (21:36)
[2018-07-26] MEDS: ATORVASTATIN CALCIUM 40 MG TABLET PO SCH (21:36)
[2018-07-27] MEDS: INSULIN LISPRO 100 UNIT/ML 3 ML VIAL SUBCUT SCH ×5 (00:21→21:49)
[2018-07-27] MEDS: HYDRALAZINE HCL 25 MG TABLET PO SCH ×3 (06:12→21:39)
[2018-07-27] MEDS: LEVOTHYROXINE SODIUM 0.1 MG TABLET PO SCH (06:13)
[2018-07-27] MEDS: CARVEDILOL 12.5 MG TABLET PO SCH ×2 (06:13→17:26)
[2018-07-27] MEDS: LANSOPRAZOLE 15 MG TAB.RAP.DR PO SCH (06:13)
--- NOTE | 2018-07-27 08:31 | PDOC PROGRESS REPORT ---
Subjective Progress Note for:: 07/27/18 Subjective:: Had a thoracocentesis done yesterday 900 cc fluid out Will wait for the culture Patient is complaining of pain when take a deep breath Reason For Visit: L SIDE PLEURAL EFFUSION Physical Exam Vital Signs: Temp Pulse Resp BP Pulse Ox 98.0 F 61 17 102/40 L 96 07/27/18 03:06 07/27/18 03:06 07/27/18 03:06 07/27/18 03:06 07/27/18 03:06 Intake & Output 07/26/18 07/27/18 07/28/18 06:59 06:59 06:59 Intake Total 50 Output Total 250 Balance -200 Weight 98.5 kg General appearance: PRESENT: no acute distress, well-developed, well-nourished Head exam: PRESENT: atraumatic, normocephalic Eye exam: PRESENT: conjunctiva pink, EOMI, PERRLA. ABSENT: scleral icterus Ear exam: PRESENT: normal external ear exam Mouth exam: PRESENT: moist, tongue midline Neck exam: PRESENT: full ROM. ABSENT: carotid bruit, JVD, lymphadenopathy, thyromegaly Respiratory exam: PRESENT: clear to auscultation bonifacio Cardiovascular exam: PRESENT: RRR. ABSENT: diastolic murmur, rubs, systolic murmur Vascular exam: PRESENT: normal capillary refill GI/Abdominal exam: PRESENT: normal bowel sounds, soft. ABSENT: distended, guarding, mass, organolmegaly, rebound, tenderness Rectal exam: PRESENT: deferred Neurological exam: PRESENT: alert, awake, oriented to person, oriented to place, oriented to time, oriented to situation, CN II-XII grossly intact. ABSENT: motor sensory deficit Psychiatric exam: PRESENT: appropriate affect, normal mood. ABSENT: homicidal ideation, suicidal ideation Skin exam: PRESENT: dry, intact, warm. ABSENT: cyanosis, rash Results Laboratory Results: 07/26/18 10:10 07/26/18 10:10 07/26/18 07/26/18 07/26/18 10:10 10:10 15:08 WBC 6.6 RBC 3.55 L Hgb 11.0 L Hct 32.5 L MCV 92 MCH 31.1 MCHC 34.0 RDW 16.5 H Plt Count 198 Seg Neutrophils % 63.5 Lymphocytes % 21.2 Monocytes % 8.5 Eosinophils % 5.6 Basophils % 1.2 Absolute Neutrophils 4.2 Absolute Lymphocytes 1.4 Absolute Monocytes 0.6 Absolute Eosinophils 0.4 Absolute Basophils 0.1 Sodium 144.4 Potassium 4.3 Chloride 110 H Carbon Dioxide 27 Anion Gap 7 BUN 55 H Creatinine 4.16 H Est GFR ( Amer) 17 L Est GFR (Non-Af Amer) 14 L Glucose 206 H Calcium 8.5 Total Bilirubin 0.5 AST 13 L ALT 16 L Alkaline Phosphatase 120 Total Protein 5.8 L Albumin 3.2 L Fluid Type PLEURAL Fluid Source Fluid Color LIGHT YELLOW Fluid Appearance HAZY Fluid Viscosity LIQUID Fluid WBC 728 Fluid RBC 4575 Impressions: Chest X-Ray 07/26/18 00:00 IMPRESSION: No pneumothorax. Minimal subsegmental atelectasis in the left base. Borderline heart size with no pulmonary edema. Thoracentesis Ultrasound 07/26/18 10:59 IMPRESSION: SUCCESSFUL THORACENTESIS USING ULTRASOUND GUIDANCE. Assessment & Plan - Diagnosis (1) Pleural effusion Is this a current diagnosis for this admission?: Yes Plan: This post thoracocentesis We will get the chest x-ray (2) Acute renal failure Qualifiers: Acute renal failure type: unspecified Qualified Code(s): N17.9 - Acute kidney failure, unspecified Is this a current diagnosis for this admission?: Yes Plan: With the Dr. 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 half-way insulin use status Diabetes mellitus complication status: with unspecified complications Qualified Code(s): E11.8 - Type 2 diabetes mellitus with unspecified complications Is this a current diagnosis for this admission?: Yes Plan: Continues to current insulin and sliding scale (6) Hyperlipemia Qualifiers: Hyperlipidemia type: unspecified Qualified Code(s): E78.5 - Hyperlipidemia, unspecified Is this a current diagnosis for this admission?: Yes (7) Coronary artery disease Qualifiers: Coronary Disease-Associated Artery/Lesion type: unspecified vessel or lesion type Associated angina: without angina Is this a current diagnosis for this admission?: Yes Plan: Patient's recent cardiology workup is stable (8) Congestive heart failure Qualifiers: Heart failure type: diastolic Heart failure chronicity: chronic Qualified Code(s): I50.32 - Chronic diastolic (congestive) heart failure Is this a current diagnosis for this admission?: Yes - Time Time Spent with patient: 15-24 minutes Medications reviewed and adjusted accordingly: Yes Anticipated discharge: Home - Plan Summary Plan Summary: This with the and the patient's regarding the patient's current conditions
--- NOTE | 2018-07-27 08:55 | RADIOLOGY REPORT (SQ) ---
EXAM DESCRIPTION: CHEST 2 VIEWS COMPLETED DATE/TIME: 07/27/2018 8:34 am REASON FOR STUDY: Pleural Effusion COMPARISON: 07/26/2017 EXAM PARAMETERS: NUMBER OF VIEWS: two views TECHNIQUE: Digital Frontal and Lateral radiographic views of the chest acquired. RADIATION DOSE: NA LIMITATIONS: none FINDINGS: LUNGS AND PLEURA: Mild left sided pleural effusion with associated basilar consolidation, likely atelectasis. Unremarkable right hemithorax. No pneumothorax. MEDIASTINUM AND HILAR STRUCTURES: No masses or contour abnormalities. HEART AND VASCULAR STRUCTURES: Borderline enlarged cardiac silhouette, stable. Atherosclerotic aorta . BONES: No acute findings. HARDWARE: None in the chest. OTHER: No other significant finding. IMPRESSION: Mild left basilar pleural effusion, increased from prior, with associated atelectasis. TECHNICAL DOCUMENTATION: JOB ID: [id number] [employer]- All Rights Reserved Reading location - IP/workstation name: [email or web address]
[2018-07-27] MEDS: TAMSULOSIN HCL 0.4 MG CAP.SR.24H PO SCH (09:16)
[2018-07-27] MEDS: AMLODIPINE BESYLATE 5 MG TABLET PO SCH ×2 (09:17→21:41)
[2018-07-27] MEDS: ASPIRIN 81 MG TABLET, CHEWABLE PO SCH (09:17)
[2018-07-27] MEDS: LOSARTAN POTASSIUM 50 MG TABLET PO SCH (09:17)
[2018-07-27] MEDS: FUROSEMIDE 40 MG TABLET PO SCH (09:17)
[2018-07-27] MEDS: ACETAMINOPHEN 325 MG TABLET PO PRN ×2 (09:19→21:38)
[2018-07-27] MEDS: INSULIN GLARGINE,HUM.REC.ANLOG 300 UNIT/3 ML INSULN.PEN SUBCUT SCH ×2 (09:20→21:48)
[2018-07-27] MEDS: ALLOPURINOL 100 MG TABLET PO SCH (09:20)
[2018-07-27] MEDS: CEFEPIME 2 GM/D5W RTU 2 GM/50 ML RTUPB IV SCH (09:24)
[2018-07-27] MEDS: SODIUM BICARBONATE 650 MG TABLET PO SCH ×2 (09:25→17:26)
[2018-07-27] MEDS: CALCITRIOL 0.25 MCG CAPSULE PO SCH (09:26)
[2018-07-27 10:39] LABS: PATH REVIEW PATHOLOGIST REVIEWED
[2018-07-27 10:43] LABS: HEMATOCRIT 27.5 % (37.9-51.0); HEMOGLOBIN 9.3 g/dL (13.5-17.0); MEAN CORPUSCULAR HEMOGLOBIN 30.6 pg (27.0-33.4); MEAN CORPUSCULAR HGB CONC 33.8 g/dL (32.0-36.0); MEAN CORPUSCULAR VOLUME 91 fl (80-97); PLATELET COUNT 159 10^3/uL (150-450); RED BLOOD COUNT 3.04 10^6/uL (4.35-5.55); RED CELL DISTRIBUTION WIDTH 16.4 % (11.5-14.0)
[2018-07-27 11:02] LABS: ANION GAP 9 (5-19); BLOOD UREA NITROGEN 56 mg/dL (7-20); CALCIUM 8.1 mg/dL (8.4-10.2); CARBON DIOXIDE 24 mmol/L (22-30); CHLORIDE 109 mmol/L (98-107); GLUCOSE 155 mg/dL (75-110); POTASSIUM 4.2 mmol/L (3.6-5.0); SODIUM 141.7 mmol/L (137-145)
--- NOTE | 2018-07-27 17:15 | PDOC CONSULTATION ---
Consultation Consult Date: 07/27/18 Attending physician:: LETITIA FAULKNER Consult reason:: I was asked to see the patient due to worsening kidney function with underlying chronic kidney disease. History of Present Illness Admission Date/PCP: 07/26/18 10:03 Genaro YANES MD History of Present Illness: KIMBERLY CRAIG is a 83 year old male with history of chronic kidney disease stage III being followed by Dr. Yanes, diabetes mellitus type 2, hypertension, and nephrolithiasis who was admitted yesterday because of left pleural effusion. Patient has been having a rough time for the last month at least. He started with some cough and congestion for which he was treated empirically for pneum onia with Omnicef as an outpatient. He was advised to be admitted but he declined admission to the hospital so is just being managed as an outpatient. Dr. Yanes is seen him on July 05, 2018 and at that time he was found to have an elevated creatinine of 3.6 from his baseline of around 2.3-2.7 records. His blood pressure was also elevated. His Lasix was changed to 40 mg in the morning and 20 mg at night, amlodipine was decreased to 5 mg once a day and he got restarted on hydralazine 25 mg 3 times a day. Duplex of renal arteries was ordered which showed no renal artery stenosis on July 11. It also shows bilaterally small kidneys with right kidney measuring at 9 cm and left kidney at 8.5 cm. 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 Arceo who did an echocardiogram showing a stable normal ejection fraction. He did have a history of grade 1/4 diastolic dysfunction from previous echocardiogram in January 2017. He also continues to be short of breath so Dr. Faulkner ordered a CT scan of the chest which revealed a significant left pleural effusion. Subsequently patient was admitted yesterday. A thoracentesis was done immediately and 900 mL of pleural fluid was obtained. Patient said he feels much better in terms of breathing. In terms of his kidney function he came in with a BUN of 55, creatinine of 4.16 and estimated GFR of 14. Today he has a BUN of 56, creatinine of 4.26 and estimated GFR of 13. He is making urine. He denies any problems with urination including gross hematuria. He reports that his urine volume has been decreased recently despite the Lasix. His appetite has been decreased lately according to the . Otherwise he denies any fever, chest pains, nausea, vomiting nor diarrhea. He denies any NSAID use nor abuse. Currently as reported he is feeling much better than when he came in yesterday. He is being given antibiotics IV. Pleural fluid cultures so far has been pending. Past Medical History Cardiac Medical History: Reports: CHF-Diastolic, Hyperlipidemia, Hypertension- primary Endocrine Medical History: Reports: Diabetes Mellitus Type 2 Renal/ Medical History: Reports: Chronic Kidney Disease Stage III, Nephrolithiasis GI Medical History: Reports: Gastroesophageal Reflux Disease Musculoskeltal Medical History: Reports: Arthritis, Gout Hematology Medical History: Reports Anemia Past Surgical History Past Surgical History: Reports: Lithotripsy Social History Information Source: Patient Lives with: Spouse/Significant other Smoking Status: Former Smoker Number of Years Smokin Frequency of Alcohol Use: Occasional Hx Recreational Drug Use: No Hx Prescription Drug Abuse: No Family History Family History: CAD - Mother and father, Malignancy - Sister Parental Family History Reviewed: Yes Children Family History Reviewed: Yes Sibling(s) Family History Reviewed.: Yes Medication/Allergy Home Medications: Allopurinol [Zyloprim 100 Mg Tablet] 100 mg PO DAILY 09/28/11 Amlodipine Besylate [Norvasc 5 mg Tablet] 5 mg PO Q12 09/28/11 Aspirin [Aspirin 81 mg Chewable Tablet] 81 mg PO DAILY 09/28/11 Carvedilol [Coreg 25 mg Tablet] 25 mg PO BID 07/22/14 Atorvastatin Calcium [Lipitor 40 mg Tablet] 40 mg PO QHS 07/26/18 Calcitriol [Rocaltrol] 0.25 mcg PO MOFR@1000 07/26/18 Cefdinir [Omnicef 300 mg Capsule] 1 cap PO BID 07/26/18 Ferrous Sulfate [Feosol] 325 mg PO DAILY 07/26/18 Furosemide [Lasix 40 mg Tablet] 40 mg PO BID 07/26/18 Hydralazine HCl [Apresoline 25 mg Tablet] 25 mg PO TID 07/26/18 Insulin Aspart [Novolog Flexpen] See Protocol SQ AC PRN 07/26/18 Insulin Glargine,Hum.rec.anlog [Lantus Insulin 100 Unit/1 ml 10 ml] See Protocol SQ BID 07/26/18 Levothyroxine Sodium [Synthroid 0.1 mg Tablet] 0.1 mg PO Q6AM 07/26/18 Losartan Potassium [Cozaar 100 mg Tablet] 100 mg PO DAILY 07/26/18 Omeprazole 20 mg PO Q6AM 07/26/18 Sodium Bicarbonate [Antacid] 650 mg PO BID 07/26/18 Tamsulosin HCl [Flomax] 0.4 mg PO DAILY 07/26/18 Allergies/Adverse Reactions: No Known Allergies Allergy (Verified 07/26/18 14:15) Review of Systems All systems: reviewed and no additional remarkable complaints except as stated Review of Systems: Constitutional: ABSENT: chills, fatigue, fever(s), headache(s), weight gain, weight loss Eyes: ABSENT: visual disturbances Ears: ABSENT: hearing changes Cardiovascular: ABSENT: chest pain, dyspnea on exertion, orthropnea, pa lpitations; admits edema Respiratory: ABSENT: Hemoptysis; admits cough and shortness of breath Gastrointestinal: ABSENT: abdominal pain, constipation, diarrhea, hematemesis, hematochezia, nausea, vomiting Genitourinary: ABSENT: dysuria, hematuria Musculoskeletal: ABSENT: joint swelling Integumentary: ABSENT: rash, wounds Neurological: ABSENT: abnormal gait, abnormal speech, confusion, dizziness, f ocal weakness, numbness, syncope Psychiatric: ABSENT: anxiety, depression Endocrine: ABSENT: cold intolerance, heat intolerance, polydipsia, polyuria Hematologic/Lymphatic: ABSENT: easy bleeding, easy bruising, lymphadenopathy Physical Exam Vital Signs: Temp Pulse Resp BP Pulse Ox 98.5 F 66 18 152/62 H 92 07/27/18 12:00 07/27/18 14:00 07/27/18 12:00 07/27/18 12:00 07/27/18 12:00 Intake & Output 07/26/18 07/27/18 07/28/18 06:59 06:59 06:59 Intake Total 50 50 Output Total 250 Balance -200 50 Weight 98.5 kg Exam: General appearance: No acute distress, cooperative, well-developed, well- nourished Head exam: PRESENT: atraumatic, normocephalic Eye exam: PRESENT: Conjunctiva slightly pale, EOMI, PERRLA. ABSENT: conjunctival injection, scleral icterus Mouth exam: PRESENT: moist, neck supple, tongue midline Neck exam: PRESENT: full ROM. Positive bilateral carotid bruits ABSENT: JVD, lymphadenopathy, thyromegaly Respiratory exam: PRESENT: Diminished breath sounds in the left mid to lower lung hall compared to the right to auscultation ABSENT: rales, rhonchi, stridor, wheezes Cardiovascular exam: PRESENT: RRR, +S1, +S2. ABSENT: systolic murmur Pulses: PRESENT: normal radial pulses, normal dorsalis pedis pulses GI/Abdominal exam: PRESENT: normal bowel sounds, soft. ABSENT: guarding, mass, tenderness Rectal exam: Deferred Extremities exam: PRESENT: full ROM. Grade 1 bilateral lower extremity pitting edema ABSENT: calf tenderness Musculoskeletal: PRESENT: full ROM. ABSENT: deformity Neurological exam: PRESENT: alert, Awake, Oriented to person, Oriented to place, Oriented to time, reflexes normal, CN II-XII grossly intact. ABSENT: motor sensory deficit Psychiatric exam: PRESENT: appropriate affect, normal mood. ABSENT: homicidal ideation, suicidal ideation Skin exam: PRESENT: intact, dry, warm. ABSENT: rash Results Laboratory Results: 07/27/18 10:27 07/27/18 10:27 07/26/18 07/27/18 07/27/18 15:08 10:27 10:27 WBC 7.0 RBC 3.04 L Hgb 9.3 L Hct 27.5 L MCV 91 MCH 30.6 MCHC 33.8 RDW 16.4 H Plt Count 159 Sodium 141.7 Potassium 4.2 Chloride 109 H Carbon Dioxide 24 Anion Gap 9 BUN 56 H Creatinine 4.26 H Est GFR ( Amer) 16 L Est GFR (Non-Af Amer) 13 L Glucose 155 H Calcium 8.1 L Fluid Type PLEURAL Fluid Source Fluid Color LIGHT YELLOW Fluid Appearance HAZY Fluid Viscosity LIQUID Fluid WBC 728 Fluid RBC 4575 Impressions: Thoracentesis Ultrasound 07/26/18 10:59 IMPRESSION: SUCCESSFUL THORACENTESIS USING ULTRASOUND GUIDANCE. Chest X-Ray 07/27/18 00:00 IMPRESSION: Mild left basilar pleural effusion, increased from prior, with associated atelectasis. Assessment & Plan - Diagnosis (1) Acute kidney injury superimposed on chronic kidney disease Is this a current diagnosis for this admission?: Yes Plan: Patient is reportedly nonoliguric but urine output not quantified. Possible because of worsening of kidney function be due to multifactorial factors including diastolic congestive heart failure, infection and possible ATN although there are no predisposing factors for this. Patient does not need any acute renal replacement therapy at this point. Monitor kidney function and electrolytes. Avoid nephrotoxic medications. Adjust antibiotic dose according to kidney function. Continue Lasix orally. Strict recording of intake and output. If is not making adequate amount of urine may switch the Lasix to intravenous. (2) Chronic kidney disease, stage 3 Is this a current diagnosis for this admission?: Yes Plan: Due to hypertension and diabetes mellitus. (3) Congestive heart failure with left ventricular diastolic dysfunction Qualifiers: Congestive heart failure chronicity: acute on chronic Qualified Code(s): I50.33 - Acute on chronic diastolic (congestive) heart failure Is this a current diagnosis for this admission?: Yes Plan: Normal left ventricular ejection fraction. Grade 1/4 diastolic dysfunction on previous echocardiogram. (4) Pleural effusion Is this a current diagnosis for this admission?: Yes Plan: Possibility of parapneumonic effusion. Agree with IV antibiotics. (5) Hypertension Qualifiers: Hypertension type: essential hypertension Qualified Code(s): I10 - Essential (primary) hypertension Is this a current diagnosis for this admission?: Yes Plan: Currently fairly controlled. Continue all current medications. 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 Dr. Yanes will be back in hospital service on Monday to follow the patient. - Time Time Spent: Greater than 70 Minutes
[2018-07-27] MEDS: FUROSEMIDE INJ/PF 40 MG/4 ML SDV IV SCH ×2 (18:22→22:40)
[2018-07-27 19:10] LABS: APPEARANCE,URINE CLEAR; BILIRUBIN,URINE NEGATIVE (NEGATIVE); COLOR,URINE YELLOW; GLUCOSE, URINE 50 mg/dL (NEGATIVE); KETONES,URINE NEGATIVE (NEGATIVE); LEUKOCYTE ESTERASE,URINE NEGATIVE (NEGATIVE); NITRITE,URINE NEGATIVE (NEGATIVE); PROTEIN,URINE 100 mg/dL (NEGATIVE); URINE SPECIFIC GRAVITY 1.012; UROBILINOGEN,URINE NEGATIVE mg/dL (<2.0)
[2018-07-27] MEDS: ATORVASTATIN CALCIUM 40 MG TABLET PO SCH (21:41)
[2018-07-28 05:02] LABS: ABSOLUTE EOSINOPHILS # (AUTO) 0.3 10^3/uL (0.0-0.6); ABSOLUTE LYMPHOCYTES (AUTO) 1.4 10^3/uL (0.5-4.7); ABSOLUTE MONOCYTES (AUTO) 0.7 10^3/uL (0.1-1.4); ABSOLUTE NEUT (AUTO) 3.9 10^3/uL (1.7-8.2); BASOPHILS % (AUTO) 0.8 % (0-2); EOSINOPHILS % (AUTO) 4.3 % (0-6); HEMATOCRIT 26.9 % (37.9-51.0); HEMOGLOBIN 9.2 g/dL (13.5-17.0); LYMPHOCYTES % (AUTO) 21.6 % (13-45); MEAN CORPUSCULAR HEMOGLOBIN 30.9 pg (27.0-33.4); MEAN CORPUSCULAR HGB CONC 34.3 g/dL (32.0-36.0); MEAN CORPUSCULAR VOLUME 90 fl (80-97); MONOCYTES % (AUTO) 11.2 % (3-13); PLATELET COUNT 141 10^3/uL (150-450); RED BLOOD COUNT 2.99 10^6/uL (4.35-5.55); RED CELL DISTRIBUTION WIDTH 16.5 % (11.5-14.0); SEGMENTED NEUTROPHILS % (AUTO) 62.1 % (42-78); TOTAL CELLS COUNTED % (AUTO) 100 %; WHITE BLOOD COUNT 6.4 10^3/uL (4.0-10.5)
[2018-07-28 05:31] LABS: ANION GAP 7 (5-19); BLOOD UREA NITROGEN 62 mg/dL (7-20); CALCIUM 8.2 mg/dL (8.4-10.2); CARBON DIOXIDE 25 mmol/L (22-30); CHLORIDE 111 mmol/L (98-107); GLUCOSE 87 mg/dL (75-110); SODIUM 142.6 mmol/L (137-145)
[2018-07-28] MEDS: CARVEDILOL 12.5 MG TABLET PO SCH ×2 (06:52→17:15)
[2018-07-28] MEDS: LEVOTHYROXINE SODIUM 0.1 MG TABLET PO SCH (06:53)
[2018-07-28] MEDS: HYDRALAZINE HCL 25 MG TABLET PO SCH ×3 (06:53→22:15)
[2018-07-28] MEDS: LANSOPRAZOLE 15 MG TAB.RAP.DR PO SCH (06:53)
[2018-07-28] MEDS: INSULIN LISPRO 100 UNIT/ML 3 ML VIAL SUBCUT SCH ×4 (08:35→22:15)
[2018-07-28] MEDS: LOSARTAN POTASSIUM 50 MG TABLET PO SCH (10:09)
[2018-07-28] MEDS: TAMSULOSIN HCL 0.4 MG CAP.SR.24H PO SCH (10:09)
[2018-07-28] MEDS: ASPIRIN 81 MG TABLET, CHEWABLE PO SCH (10:09)
[2018-07-28] MEDS: FUROSEMIDE INJ/PF 40 MG/4 ML SDV IV SCH ×2 (10:10→22:14)
[2018-07-28] MEDS: ALLOPURINOL 100 MG TABLET PO SCH (10:10)
[2018-07-28] MEDS: CEFEPIME 2 GM/D5W RTU 2 GM/50 ML RTUPB IV SCH (10:10)
[2018-07-28] MEDS: INSULIN GLARGINE,HUM.REC.ANLOG 300 UNIT/3 ML INSULN.PEN SUBCUT SCH ×2 (10:10→22:15)
[2018-07-28] MEDS: SODIUM BICARBONATE 650 MG TABLET PO SCH ×2 (10:10→17:15)
[2018-07-28] MEDS: AMLODIPINE BESYLATE 5 MG TABLET PO SCH ×2 (10:10→22:14)
--- NOTE | 2018-07-28 13:01 | PDOC CONSULTATION ---
Consultation Consult Date: 07/28/18 Attending physician:: LETITIA RAMIREZ Consult reason:: Dyspnea/left pleural effusion History of Present Illness Admission Date/PCP: 07/26/18 10:03 Genaro WANG MD History of Present Illness: KIMBERLY CRAIG is a 83 year old male presented to the emergency room after several days increasing shortness of breath subsequent workup revealed him to have a large left-sided pleural effusion he admits to cough is pretty usually productive of clear phlegm occasionally some yellow streaks he denies hemoptysis PPD is negative dates unknown. He denies history of chronic lung disease as a child or adolescent. He admits to exposure to large amounts of passive smoke as a child as well as an adult. He himself smoked a pack a day for approximately 50 years but has not smoked in the last 30 years. He denies any significant exposure to potential respiratory toxins during his work career. He has a cat no recent travel he has occasional tightness in his chest sleeps on 2 pillows no PND no nocturnal cough he admits to edema he admits to snoring restless sleep n octuria 2-3 times per night unrestful sleep and daytime somnolence. Past Medical History Cardiac Medical History: Reports: Hyperlipidema, Hypertension Denies: Coronary Artery Disease, Myocardial Infarction Pulmonary Medical History: Denies: Asthma, Bronchitis, Chronic Obstructive Pulmonary Disease (COPD), Pneumonia Neurological Medical History: Denies: Seizures Endocrine Medical History: Reports: Diabetes Mellitus Type 2 Renal/ Medical History: Reports: Nephrolithiasis GI Medical History: Reports: Gastroesophageal Reflux Disease Musculoskeltal Medical History: Reports: Arthritis, Gout Psychiatric Medical History: Denies: Depression Traumatic Medical History: Denies: Traumatic Brain Injury Hematology: Reports: Anemia Infectious Medical History: Denies: Hepatitis B, Hepatitis C Past Surgical History Past Surgical History: Reports: Tonsillectomy Social History Information Source: Patient, [facility] Records Lives with: Spouse/Significant other Smoking Status: Former Smoker Number of Years Smokin Passive smoke exposure as: Both Frequency of Alcohol Use: Occasional Hx Recreational Drug Use: No Hx Prescription Drug Abuse: No Do you have pets?: No Have you had any respiratory illnesses as a child?: No Have you been exposed to any sick contacts recently?: No Have you had any recent respiratory illnesses?: No Have you travelled outside of [place] in the past 12 months?: No Family History Family History: CAD, Hypertension, Malignancy Parental Family History Reviewed: Yes Children Family History Reviewed: Yes Sibling(s) Family History Reviewed.: Yes Medication/Allergy Home Medications: Allopurinol [Zyloprim 100 Mg Tablet] 100 mg PO DAILY 09/28/11 Amlodipine Besylate [Norvasc 5 mg Tablet] 5 mg PO Q12 09/28/11 Aspirin [Aspirin 81 mg Chewable Tablet] 81 mg PO DAILY 09/28/11 Carvedilol [Coreg 25 mg Tablet] 25 mg PO BID 07/22/14 Atorvastatin Calcium [Lipitor 40 mg Tablet] 40 mg PO QHS 07/26/18 Calcitriol [Rocaltrol] 0.25 mcg PO MOFR@1000 07/26/18 Cefdinir [Omnicef 300 mg Capsule] 1 cap PO BID 07/26/18 Ferrous Sulfate [Feosol] 325 mg PO DAILY 07/26/18 Furosemide [Lasix 40 mg Tablet] 40 mg PO BID 07/26/18 Hydralazine HCl [Apresoline 25 mg Tablet] 25 mg PO TID 07/26/18 Insulin Aspart [Novolog Flexpen] See Protocol SQ AC PRN 07/26/18 Insulin Glargine,Hum.rec.anlog [Lantus Insulin 100 Unit/1 ml 10 ml] See Protocol SQ BID 07/26/18 Levothyroxine Sodium [Synthroid 0.1 mg Tablet] 0.1 mg PO Q6AM 07/26/18 Losartan Potassium [Cozaar 100 mg Tablet] 100 mg PO DAILY 07/26/18 Omeprazole 20 mg PO Q6AM 07/26/18 Sodium Bicarbonate [Antacid] 650 mg PO BID 07/26/18 Tamsulosin HCl [Flomax] 0.4 mg PO DAILY 07/26/18 Allergies/Adverse Reactions: No Known Allergies Allergy (Verified 07/26/18 14:15) Review of Systems Constitutional: PRESENT: weight gain, weight loss. ABSENT: anorexia, headache(s), night sweats Eyes: ABSENT: visual disturbances Ears: ABSENT: hearing changes Nose, Mouth, and Throat: ABSENT: mouth pain, sore throat Cardiovascular: PRESENT: dyspnea on exertion, edema. ABSENT: palpitations Respiratory: PRESENT: cough, dyspnea. ABSENT: hemoptysis Gastrointestinal: ABSENT: abdominal pain, bloating, coffee ground emesis, dysphagia, heartburn, hematemesis, hematochezia, melena Genitourinary: ABSENT: dysuria, hematuria Integumentary: ABSENT: pruritus, rash Neurological: ABSENT: abnormal gait, abnormal movements, abnormal speech, frequent falls, lack of coordination, memory loss, numbness Psychiatric: ABSENT: hallucinations, homidical ideation, suicidal ideation Endocrine: ABSENT: cold intolerance, heat intolerance, polydipsia, polyuria Hematologic/Lymphatic: PRESENT: easy bruising Allergic/Immunologic: PRESENT: seasonal rhinorrhea Physical Exam Vital Signs: Temp Pulse Resp BP Pulse Ox 98.4 F 57 L 16 126/50 H 96 07/28/18 07:27 07/28/18 07:27 07/28/18 07:27 07/28/18 07:27 07/28/18 07:27 Intake & Output 07/27/18 07/28/18 07/29/18 06:59 06:59 06:59 Intake Total 50 1365 50 Output Total 250 1100 Balance -200 265 50 Weight 98.5 kg 99.4 kg General appearance: PRESENT: no acute distress, cooperative, disheveled, obese Head exam: PRESENT: atraumatic, normocephalic Eye exam: PRESENT: conjunctiva pale, EOMI. ABSENT: nystagmus Mouth exam: PRESENT: dry mucosa, neck supple, tongue midline Neck exam: ABSENT: carotid bruit, JVD, lymphadenopathy, thyromegaly, tracheal deviation, tracheostomy Respiratory exam: PRESENT: decreased breath sounds, prolonged expiratory phas, rhonchi, unlabored. ABSENT: rales, retraction, stridor, tachypnea Cardiovascular exam: PRESENT: RRR, +S1, +S2. ABSENT: systolic murmur, tachycardia Pulses: PRESENT: normal radial pulses GI/Abdominal exam: PRESENT: soft. ABSENT: tenderness Extremities exam: ABSENT: calf tenderness, clubbing, joint swelling Musculoskeletal exam: ABSENT: deformity, dislocation Neurological exam: PRESENT: alert, awake Psychiatric exam: PRESENT: appropriate affect Skin exam: PRESENT: dry, warm Results Laboratory Results: 07/28/18 04:47 07/28/18 04:47 07/27/18 07/28/18 07/28/18 18:45 04:47 04:47 WBC 6.4 RBC 2.99 L Hgb 9.2 L Hct 26.9 L MCV 90 MCH 30.9 MCHC 34.3 RDW 16.5 H Plt Count 141 L Seg Neutrophils % 62.1 Lymphocytes % 21.6 Monocytes % 11.2 Eosinophils % 4.3 Basophils % 0.8 Absolute Neutrophils 3.9 Absolute Lymphocytes 1.4 Absolute Monocytes 0.7 Absolute Eosinophils 0.3 Absolute Basophils 0.0 Sodium 142.6 Potassium 4.0 Chloride 111 H Carbon Dioxide 25 Anion Gap 7 BUN 62 H Creatinine 4.13 H Est GFR ( Amer) 17 L Est GFR (Non-Af Amer) 14 L Glucose 87 Calcium 8.2 L Urine Color YELLOW Urine Appearance CLEAR Urine pH 6.0 Ur Specific [place] 1.012 Urine Protein 100 H Urine Glucose (UA) 50 H Urine Ketones NEGATIVE Urine Blood NEGATIVE Urine Nitrite NEGATIVE Ur Leukocyte Esterase NEGATIVE Urine WBC (Auto) 0 Urine RBC (Auto) 0 Impressions: Thoracentesis Ultrasound 07/26/18 10:59 IMPRESSION: SUCCESSFUL THORACENTESIS USING ULTRASOUND GUIDANCE. Chest X-Ray 07/27/18 00:00 IMPRESSION: Mild left basilar pleural effusion, increased from prior, with associated atelectasis. Assessment & Plan - Diagnosis (1) Chronic kidney disease, stage 3 Is this a current diagnosis for this admission?: Yes Plan: Labs- All tests 24 hr 07/26/18 07/27/18 07/28/18 10:10 10:27 04:47 BUN 55 H 56 H 62 H Creatinine 4.16 H 4.26 H 4.13 H As per nephrology (2) Congestive heart failure with left ventricular diastolic dysfunction Qualifiers: Congestive heart failure chronicity: acute on chronic Qualified Code(s): I50.33 - Acute on chronic diastolic (congestive) heart failure Is this a current diagnosis for this admission?: Yes Plan: Related to volume overload (3) Hypertension Qualifiers: Hypertension type: essential hypertension Qualified Code(s): I10 - Essential (primary) hypertension Is this a current diagnosis for this admission?: Yes Plan: Stable at this time (4) Pleural effusion Is this a current diagnosis for this admission?: Yes Plan: Labs- All tests 24 hr 07/26/18 07/26/18 10:10 15:08 Total Protein 5.8 L Fluid Type PLEURAL Fluid Color LIGHT YELLOW Fluid Appearance HAZY Fluid Viscosity LIQUID Fluid WBC 728 Fluid RBC 4575 Fluid Seg Neutrophils 30 Fluid Lymphocytes 46 Fluid Monocytes 6 Fluid Eosinophils 18 Lab testing from pleural fluid is still pending at this time suspect this to be transudate of effusion due to congestive heart failure and/or chronic renal failure nonetheless he has some left-sided axis
--- NOTE | 2018-07-28 15:15 | PDOC PROGRESS REPORT ---
Subjective Progress Note for:: 07/28/18 Subjective:: Patient continue to report intermittent left sided chest pain with motion, particularly when he turns from left to right side of his body. He denied any significant difficulty with breathing. No fever or chills. No nausea or vomiting. No abdominal pain, constipation or diarrhea. Reason For Visit: L SIDE PLEURAL EFFUSION Physical Exam Vital Signs: Temp Pulse Resp BP Pulse Ox 98 F 64 18 140/40 H 92 07/28/18 12:00 07/28/18 12:00 07/28/18 12:00 07/28/18 12:00 07/28/18 12:00 Intake & Output 07/27/18 07/28/18 07/29/18 06:59 06:59 06:59 Intake Total 50 1365 50 Output Total 250 1100 Balance -200 265 50 Weight 98.5 kg 99.4 kg General appearance: PRESENT: no acute distress, obese Head exam: PRESENT: atraumatic, normocephalic Eye exam: PRESENT: conjunctiva pink, EOMI, PERRLA. ABSENT: scleral icterus Ear exam: PRESENT: normal external ear exam Mouth exam: PRESENT: moist Respiratory exam: PRESENT: clear to auscultation bonifacio Cardiovascular exam: PRESENT: RRR. ABSENT: diastolic murmur, rubs, systolic murmur Vascular exam: PRESENT: normal capillary refill. ABSENT: pallor GI/Abdominal exam: PRESENT: normal bowel sounds, soft. ABSENT: distended, guarding, mass, organolmegaly, rebound, tenderness Extremities exam: ABSENT: pedal edema Neurological exam: PRESENT: alert, awake, oriented to person, oriented to place, oriented to time, oriented to situation, CN II-XII grossly intact. ABSENT: motor sensory deficit Psychiatric exam: PRESENT: appropriate affect, normal mood. ABSENT: homicidal ideation, suicidal ideation Skin exam: PRESENT: dry, warm Results Laboratory Results: 07/28/18 04:47 07/28/18 04:47 07/27/18 07/28/18 07/28/18 18:45 04:47 04:47 WBC 6.4 RBC 2.99 L Hgb 9.2 L Hct 26.9 L MCV 90 MCH 30.9 MCHC 34.3 RDW 16.5 H Plt Count 141 L Seg Neutrophils % 62.1 Lymphocytes % 21.6 Monocytes % 11.2 Eosinophils % 4.3 Basophils % 0.8 Absolute Neutrophils 3.9 Absolute Lymphocytes 1.4 Absolute Monocytes 0.7 Absolute Eosinophils 0.3 Absolute Basophils 0.0 Sodium 142.6 Potassium 4.0 Chloride 111 H Carbon Dioxide 25 Anion Gap 7 BUN 62 H Creatinine 4.13 H Est GFR ( Amer) 17 L Est GFR (Non-Af Amer) 14 L Glucose 87 Calcium 8.2 L Urine Color YELLOW Urine Appearance CLEAR Urine pH 6.0 Ur Specific [place] 1.012 Urine Protein 100 H Urine Glucose (UA) 50 H Urine Ketones NEGATIVE Urine Blood NEGATIVE Urine Nitrite NEGATIVE Ur Leukocyte Esterase NEGATIVE Urine WBC (Auto) 0 Urine RBC (Auto) 0 Impressions: Thoracentesis Ultrasound 07/26/18 10:59 IMPRESSION: SUCCESSFUL THORACENTESIS USING ULTRASOUND GUIDANCE. Chest X-Ray 07/27/18 00:00 IMPRESSION: Mild left basilar pleural effusion, increased from prior, with associated atelectasis. Assessment & Plan - Diagnosis (1) Pleural effusion Is this a current diagnosis for this admission?: Yes Plan: Continue current medication management. Thoracentesis site over posterior aspect of left lung dressing intact and satisfactory. Repeat chest X ray for further evaluation of his complain. (2) Congestive heart failure Qualifiers: Heart failure type: diastolic Heart failure chronicity: chronic Qualified Code(s): I50.32 - Chronic diastolic (congestive) heart failure Is this a current diagnosis for this admission?: Yes Plan: Obtain complete echocardiogram to evaluate cardiac function and structure. Last echo on hospital record was in 2017. (3) Acute kidney injury superimposed on chronic kidney disease Is this a current diagnosis for this admission?: Yes Plan: Continue current medication management. (4) Hypertension Qualifiers: Hypertension type: essential hypertension Qualified Code(s): I10 - Essential (primary) hypertension Is this a current diagnosis for this admission?: Yes Plan: Continue current medication management. (5) Coronary artery disease Qualifiers: Coronary Disease-Associated Artery/Lesion type: unspecified vessel or lesion type Associated angina: without angina Is this a current diagnosis for this admission?: Yes Plan: Continue current medication management. (6) Hyperlipemia Qualifiers: Hyperlipidemia type: unspecified Qualified Code(s): E78.5 - Hyperlipidemia, unspecified Is this a current diagnosis for this admission?: Yes Plan: Continue current medication management. 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 - Time Time Spent with patient: 25-34 minutes Medications reviewed and adjusted accordingly: Yes Anticipated discharge: Home with Homehealth Within: Other - Inpatient Certification Based on my medical assessment, after consideration of the patient's comorbidities, presenting symptoms, or acuity I expect that the services needed warrant INPATIENT care.: Yes I certify that my determination is in accordance with my understanding of Medicare's requirements for reasonable and necessary INPATIENT services [42 CFR 412.3e].: Yes Medical Necessity: Significant Comorbidiites Make Outpatient Treatment Too Risky, Need Close Monitoring Due to Risk of Patient Decompensation, Need For Continuous Telemetry Monitoring, Risk of Complication if Not Cared For in Hospital, Risk of Diagnosis Which Will Require Inpatient Eval/Care/Monitoring Post Hospital Care: D/C Caving Guide Documentation - Plan Summary Plan Summary: Continue current medication management. Follow up on chest X ray and echocardio gram findings.
[2018-07-28 16:03] LABS: TOTAL PROTEIN BODY FLUID 2.9 g/dL (.)
--- NOTE | 2018-07-28 20:15 | RADIOLOGY REPORT (SQ) ---
EXAM DESCRIPTION: XR CHEST 2 VIEWS COMPLETED DATE/TME: 07/28/2018 00:00 CLINICAL HISTORY: 83 years, Male, Left sided chest pain s/p thoracentesis COMPARISON: EXAM DESCRIPTION: CLINICAL HISTORY: Left sided chest pain s/p thoracentesis COMPARISON: 07/26/2018 FINDINGS: Two views of the chest are submitted. Cardiac silhouette appears normal. There is worsening consolidation and atelectasis at the left lung base with a small left pleural effusion, increased. The right lung is clear. There is mild bilateral pulmonary edema. IMPRESSION: Left lung base consolidation and atelectasis with left pleural effusion.
[2018-07-28] MEDS: ATORVASTATIN CALCIUM 40 MG TABLET PO SCH (22:14)
[2018-07-29] MEDS: CARVEDILOL 12.5 MG TABLET PO SCH ×3 (06:00→19:29)
[2018-07-29 06:02] LABS: ANION GAP 9 (5-19); BLOOD UREA NITROGEN 65 mg/dL (7-20); CALCIUM 8.2 mg/dL (8.4-10.2); CARBON DIOXIDE 25 mmol/L (22-30); CHLORIDE 107 mmol/L (98-107); GLUCOSE 142 mg/dL (75-110); POTASSIUM 4.1 mmol/L (3.6-5.0); SODIUM 141.1 mmol/L (137-145)
[2018-07-29] MEDS: HYDRALAZINE HCL 25 MG TABLET PO SCH ×3 (06:06→22:20)
[2018-07-29] MEDS: LANSOPRAZOLE 15 MG TAB.RAP.DR PO SCH (06:06)
[2018-07-29] MEDS: LEVOTHYROXINE SODIUM 0.1 MG TABLET PO SCH (06:06)
[2018-07-29] MEDS: INSULIN LISPRO 100 UNIT/ML 3 ML VIAL SUBCUT SCH ×4 (09:14→22:19)
[2018-07-29] MEDS: ALLOPURINOL 100 MG TABLET PO SCH (09:34)
[2018-07-29] MEDS: TAMSULOSIN HCL 0.4 MG CAP.SR.24H PO SCH (09:34)
[2018-07-29] MEDS: ASPIRIN 81 MG TABLET, CHEWABLE PO SCH (09:34)
[2018-07-29] MEDS: INSULIN GLARGINE,HUM.REC.ANLOG 300 UNIT/3 ML INSULN.PEN SUBCUT SCH ×2 (09:34→22:19)
[2018-07-29] MEDS: SODIUM BICARBONATE 650 MG TABLET PO SCH ×2 (09:34→17:27)
[2018-07-29] MEDS: FUROSEMIDE INJ/PF 40 MG/4 ML SDV IV SCH (09:34)
[2018-07-29] MEDS: CEFEPIME 2 GM/D5W RTU 2 GM/50 ML RTUPB IV SCH (09:34)
--- NOTE | 2018-07-29 10:10 | XCELERA REPORT ---
[address] [address] Transthoracic Echocardiogram Report Name: KIMBERLY CRAGI Age: 83 yrs Gender: Male : 1935 Patient Status: Inpatient Patient Location: [facility]^A Study Date: 07/29/2018 08:36 AM Height: 70 in Weight: 219 lb BSA: 2.2 m2 Reason For Study: CHF with left sided chest pain Ordering Physician: PIERO MILLS Performed By: Marin García Interpretation Summary Study quality suboptimal with many poor images limiting limiting detailed cardiac evaluation. Lack of contrast limits evaluation for wall motion abnormalities, EF estimation, visualization of chambers and rule out mass/ thrombus. LV not well visualized but LVEF appears normal at around 55-60%. RV not well visualized but RV systolic function appears normal. The transmitral spectral Doppler flow pattern is abnormal for age Aortic valve not well visualized but appears focally calcified and doppler data provided does not suggest presence of any significant stenosis. Please note that suboptimal doppler sampling betty lead to underestimation of valve gradients. Moderate mitral annular calcification noted with mean PG across MV at 2.1 mm hg at HR 58 bpm. There is a trace amount of tricuspid regurgitation RVSP cannot be estimated as IVC not visualized. Moderate size left pleural effusion. The aortic root is normal size. MMode/2D Measurements & Calculations RVDd: 3.0 cm LVIDd: 4.5 cm FS: 28.0 % Ao root diam: 3.3 cm IVSd: 0.71 cm LVIDs: 3.2 cm EDV(Teich): 92.9 ml LVPWd: 1.0 cm ESV(Teich): 42.5 ml Ao root area: 8.7 cm2 LA dimension: 5.1 cm EF(Teich): 54.3 % LVOT diam: 1.8 cm LVOT area: 2.5 cm2 Doppler Measurements & Calculations MV E max mike: MV P1/2t max mike: Ao V2 max: LV V1 max P.6 cm/sec 96.6 cm/sec 120.1 cm/sec 3.8 mmHg MV A max mike: MV P1/2t: 100.8 msec Ao max P.8 mmHg LV V1 max: 133.3 cm/sec MVA(P1/2t): 2.2 cm2 TRAM(V,D): 2.0 cm2 98.1 cm/sec MV E/A: 0.60 MV dec slope: 280.8 cm/sec2 MV dec time: 0.26 sec PA V2 max: TR max mike: MV P1/2t-pr_phl: 90.7 cm/sec 215.5 cm/sec 100.8 msec PA max P.3 mmHg TR max P.6 mmHg Left Ventricle The left ventricle is not well visualized. The transmitral spectral Doppler flow pattern is abnormal for age. Right Ventricle The right ventricle is not well visualized secondary to technical limitations. The right ventricular systolic function is normal. Atria Right atrium not well visualized secondary to technical limitations. The left atrium is not well visualized secondary to technical limitations. Mitral Valve There is moderate mitral leaflet calcification. Mean PG 2.1 mm Hg. Aortic Valve The aortic valve is not well visualized secondary to technical limitations. Focal thickening/ calcification noted. There is a peak gradient of 6 mm of Hg. Tricuspid Valve The tricuspid valve is not well visualized secondary to technical limitations. There is a trace amount of tricuspid regurgitation. RVSP cannot be estimated as IVC not visualized. Pulmonic Valve The pulmonic valve is not well visualized. Great Vessels The aortic root is not well visualized. The aortic root is normal size. Effusions Pericardium not welll visualized but anterior pericardiall pad of fat noted. Moderate size left pleural effusion. : PIERO MILLS > Jaciel Reeder
[2018-07-29] MEDS: LOSARTAN POTASSIUM 50 MG TABLET PO SCH (11:27)
[2018-07-29] MEDS: AMLODIPINE BESYLATE 5 MG TABLET PO SCH ×2 (11:28→22:20)
--- NOTE | 2018-07-29 12:20 | PDOC PROGRESS REPORT ---
Subjective Progress Note for:: 07/29/18 Subjective:: Patient reported improvement in his left sided chest pain with motion. He was able to sleep on his right side overnight and so far today denied recurrent chest pain with motion. No fever or chills. No nausea or vomiting. No abdominal pain, constipation or diarrhea. Reason For Visit: L SIDE PLEURAL EFFUSION Physical Exam Vital Signs: Temp Pulse Resp BP Pulse Ox 98.3 F 60 18 99/44 L 95 07/29/18 10:52 07/29/18 10:52 07/29/18 10:52 07/29/18 10:52 07/29/18 10:52 Intake & Output 07/28/18 07/29/18 07/30/18 06:59 06:59 06:59 Intake Total 1365 1245 Output Total 1100 1785 Balance 265 -540 Weight 99.4 kg 98.5 kg Physical Exam: General appearance: PRESENT: no acute distress, obese Head exam: PRESENT: atraumatic, normocephalic Eye exam: PRESENT: conjunctiva pink, EOMI, PERRLA. ABSENT: pallor, scleral i cterus Ear exam: PRESENT: normal external ear exam Mouth exam: PRESENT: moist Respiratory exam: PRESENT: clear to auscultation bonifacio Cardiovascular exam: PRESENT: RRR. ABSENT: diastolic murmur, rubs, systolic murmur GI/Abdominal exam: PRESENT: normal bowel sounds, soft. ABSENT: distended, guarding, mass, organolmegaly, rebound, tenderness Extremities exam: ABSENT: pedal edema Neurological exam: PRESENT: alert, awake, oriented to person, oriented to place, oriented to time, oriented to situation, CN II-XII grossly intact. ABSENT: motor sensory deficit Psychiatric exam: PRESENT: appropriate affect, normal mood. ABSENT: homicidal ideation, suicidal ideation Skin exam: PRESENT: dry, warm Results Laboratory Results: 07/28/18 04:47 07/29/18 04:39 07/26/18 07/26/18 07/26/18 15:08 15:08 15:08 Sodium Potassium Chloride Carbon Dioxide Anion Gap BUN Creatinine Est GFR ( Amer) Est GFR (Non-Af Amer) Glucose Calcium Fluid Glucose 176 Fluid Total Protein 2.9 Fluid LDH 142 Fluid Amylase 20 07/29/18 04:39 Sodium 141.1 Potassium 4.1 Chloride 107 Carbon Dioxide 25 Anion Gap 9 BUN 65 H Creatinine 4.83 H Est GFR ( Amer) 14 L Est GFR (Non-Af Amer) 12 L Glucose 142 H Calcium 8.2 L Fluid Glucose Fluid Total Protein Fluid LDH Fluid Amylase Impressions: Thoracentesis Ultrasound 07/26/18 10:59 IMPRESSION: SUCCESSFUL THORACENTESIS USING ULTRASOUND GUIDANCE. Chest X-Ray 07/28/18 00:00 IMPRESSION: Left lung base consolidation and atelectasis with left pleural effusion. Assessment & Plan - Diagnosis (1) Pleural effusion Is this a current diagnosis for this admission?: Yes (2) Congestive heart failure Qualifiers: Heart failure type: diastolic Heart failure chronicity: chronic Qualified Code(s): I50.32 - Chronic diastolic (congestive) heart failure Is this a current diagnosis for this admission?: Yes (3) Acute kidney injury superimposed on chronic kidney disease Is this a current diagnosis for this admission?: Yes (4) Hypertension Qualifiers: Hypertension type: essential hypertension Qualified Code(s): I10 - Essential (primary) hypertension Is this a current diagnosis for this admission?: Yes (5) Coronary artery disease Qualifiers: Coronary Disease-Associated Artery/Lesion type: unspecified vessel or lesion type Associated angina: without angina Is this a current diagnosis for this admission?: Yes (6) Hyperlipemia Qualifiers: Hyperlipidemia type: unspecified Qualified Code(s): E78.5 - Hyperlipidemia, unspecified Is this a current diagnosis for this admission?: Yes (7) Type 2 diabetes mellitus Qualifiers: Diabetes mellitus penitentiary insulin use: 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 Diabetes mellitus complication status: with unspecified complications Qualified Code(s): E11.8 - Type 2 diabetes mellitus with unspecified complications Is this a current diagnosis for this admission?: Yes - Time Time Spent with patient: 25-34 minutes Medications reviewed and adjusted accordingly: Yes Anticipated discharge: Home with Homehealth Within: Other - Inpatient Certification Based on my medical assessment, after consideration of the patient's comorbidities, presenting symptoms, or acuity I expect that the services needed warrant INPATIENT care.: Yes I certify that my determination is in accordance with my understanding of Medicare's requirements for reasonable and necessary INPATIENT services [42 CFR 412.3e].: Yes Medical Necessity: Significant Comorbidiites Make Outpatient Treatment Too Risky, Need Close Monitoring Due to Risk of Patient Decompensation, Need For Continuous Telemetry Monitoring, Need for Nebulizer Therapy and Monitoring of Response, Need for IV Antibiotics, Risk of Complication if Not Cared For in Hospital, Risk of Diagnosis Which Will Require Inpatient Eval/Care/Monitoring Post Hospital Care: D/C Communication Coordinator Documentation - Plan Summary Plan Summary: I reviewed and discussed his chest X ray and echocardiogram findings with him a nd spouse at bedside. Continue current medication management. Nephrology team input appreciated. Start on bedside incentive spirometer usage.
[2018-07-29] MEDS: ATORVASTATIN CALCIUM 40 MG TABLET PO SCH (22:19)
[2018-07-30 05:23] LABS: ANION GAP 9 (5-19); BLOOD UREA NITROGEN 70 mg/dL (7-20); CALCIUM 8.1 mg/dL (8.4-10.2); CARBON DIOXIDE 24 mmol/L (22-30); CHLORIDE 108 mmol/L (98-107); GLUCOSE 158 mg/dL (75-110); POTASSIUM 4.2 mmol/L (3.6-5.0); SODIUM 140.7 mmol/L (137-145)
[2018-07-30] MEDS: LANSOPRAZOLE 15 MG TAB.RAP.DR PO SCH (06:23)
[2018-07-30] MEDS: HYDRALAZINE HCL 25 MG TABLET PO SCH ×3 (06:23→21:53)
[2018-07-30] MEDS: CARVEDILOL 12.5 MG TABLET PO SCH ×2 (06:23→17:08)
[2018-07-30] MEDS: LEVOTHYROXINE SODIUM 0.1 MG TABLET PO SCH (06:24)
[2018-07-30] MEDS: INSULIN LISPRO 100 UNIT/ML 3 ML VIAL SUBCUT SCH ×4 (09:18→21:54)
--- NOTE | 2018-07-30 09:18 | RADIOLOGY REPORT (SQ) ---
EXAM DESCRIPTION: CHEST 2 VIEWS COMPLETED DATE/TIME: 07/30/2018 9:07 am REASON FOR STUDY: shortness of breath COMPARISON: 07/28/2018 EXAM PARAMETERS: NUMBER OF VIEWS: two views TECHNIQUE: Digital Frontal and Lateral radiographic views of the chest acquired. RADIATION DOSE: NA LIMITATIONS: none FINDINGS: LUNGS AND PLEURA: Stable left lung base consolidation/atelectasis and pleural effusion. No acute pulmonary consolidation on the right. No pneumothorax. MEDIASTINUM AND HILAR STRUCTURES: No masses or contour abnormalities. HEART AND VASCULAR STRUCTURES: Cardiomegaly and mild pulmonary vascular congestion, stable findings. BONES: No acute findings. HARDWARE: None in the chest. OTHER: No other significant finding. IMPRESSION: 1. No significant interval changes since the prior study dated 07/28/2018. At the left lung base consolidation/atelectasis and left pleural effusion. 2. Cardiomegaly mild pulmonary vascular congestion. TECHNICAL DOCUMENTATION: JOB ID: [id number] [employer]- All Rights Reserved Reading location - IP/workstation name: [email or web address]
[2018-07-30] MEDS: INSULIN GLARGINE,HUM.REC.ANLOG 300 UNIT/3 ML INSULN.PEN SUBCUT SCH ×2 (09:32→21:54)
[2018-07-30] MEDS: FUROSEMIDE INJ/PF 40 MG/4 ML SDV IV SCH (09:32)
[2018-07-30] MEDS: ALLOPURINOL 100 MG TABLET PO SCH (09:32)
[2018-07-30] MEDS: CALCITRIOL 0.25 MCG CAPSULE PO SCH (09:32)
[2018-07-30] MEDS: CEFEPIME 2 GM/D5W RTU 2 GM/50 ML RTUPB IV SCH (09:32)
[2018-07-30] MEDS: TAMSULOSIN HCL 0.4 MG CAP.SR.24H PO SCH (09:32)
[2018-07-30] MEDS: ASPIRIN 81 MG TABLET, CHEWABLE PO SCH (09:32)
[2018-07-30] MEDS: SODIUM BICARBONATE 650 MG TABLET PO SCH ×2 (09:32→17:08)
[2018-07-30 10:46] LABS: ARTERIAL BLOOD BASE EXCESS -2.3 mmol/L; ARTERIAL BLOOD H2CO3 0.99 mmol/L (1.05-1.35); ARTERIAL BLOOD HCO3 21.5 mmol/L (20-24); ARTERIAL BLOOD O2 SATURATION 95.8 % (94-98); ARTERIAL BLOOD PH 7.43 (7.35-7.45); ARTERIAL BLOOD PO2 76.4 mmHg (80-100); ARTERIAL BLOOD TOTAL CO2 22.5 mmol/L (23-27)
[2018-07-30 10:47] LABS: ARTERIAL BLOOD FIO2 21L
[2018-07-30] MEDS: AMLODIPINE BESYLATE 5 MG TABLET PO SCH (11:26)
[2018-07-30] MEDS: LOSARTAN POTASSIUM 50 MG TABLET PO SCH (11:27)
--- NOTE | 2018-07-30 12:05 | PDOC PROGRESS REPORT ---
Subjective Progress Note for:: 07/30/18 Reason For Visit: Patient seen in the hospital today. He generally feeling better than when he came in as he is able to walk more without getting really short of breath. He had a large-volume thoracentesis done on his admission of approximately a liter that has made his breathing a whole lot better. He denies any history of chest pains, fever or chills. He still short of breath when he walks a long distance but nothing like when he came in. His pedal edema is also markedly improved. His labs and medications are reviewed with him that shows that his worsened kidney functions are stable. He is currently nonoliguric. Physical Exam Vital Signs: Temp Pulse Resp BP Pulse Ox 98.0 F 63 18 106/45 L 96 07/30/18 07:36 07/30/18 07:36 07/30/18 07:36 07/30/18 07:36 07/30/18 07:36 Intake & Output 07/29/18 07/30/18 07/31/18 06:59 06:59 06:59 Intake Total 1245 1689 50 Output Total 1785 1200 Balance -540 489 50 Weight 98.5 kg 97.7 kg General appearance: PRESENT: no acute distress Respiratory exam: PRESENT: clear to auscultation bonifacio, crackles - Scattered, decreased breath sounds Cardiovascular exam: PRESENT: +S1, +S2, systolic murmur GI/Abdominal exam: PRESENT: normal bowel sounds, soft. ABSENT: organomegaly, tenderness Extremities exam: PRESENT: pedal edema Neurological exam: PRESENT: alert, awake, oriented to person, oriented to place Psychiatric exam: PRESENT: anxious Skin exam: ABSENT: cyanosis, erythema, jaundice, mottled Results Laboratory Results: 07/28/18 04:47 07/30/18 04:37 07/30/18 07/30/18 04:37 10:30 Carbonic Acid 0.99 L HCO3/H2CO3 Ratio 21:1 ABG pH 7.43 ABG pCO2 33.0 L ABG pO2 76.4 L ABG HCO3 21.5 ABG O2 Saturation 95.8 ABG Base Excess -2.3 FiO2 21L Sodium 140.7 Potassium 4.2 Chloride 108 H Carbon Dioxide 24 Anion Gap 9 BUN 70 H Creatinine 4.74 H Est GFR ( Amer) 14 L Est GFR (Non-Af Amer) 12 L Glucose 158 H Calcium 8.1 L 07/26/18 15:08 Pleural Fluid - Left Pleural Effusion Gram Stain - Final 07/26/18 15:08 Pleural Fluid - Left Pleural Effusion Body Fluid Culture - Final NO AEROBIC OR ANAEROBIC ORGANISMS RECOVERED Impressions: Thoracentesis Ultrasound 07/26/18 10:59 IMPRESSION: SUCCESSFUL THORACENTESIS USING ULTRASOUND GUIDANCE. Chest X-Ray 07/30/18 00:00 IMPRESSION: 1. No significant interval changes since the prior study dated 07/28/2018. At the left lung base consolidation/atelectasis and left pleural effusion. 2. Cardiomegaly mild pulmonary vascular congestion. Assessment & Plan - Diagnosis (1) Pleural effusion Is this a current diagnosis for this admission?: Yes Plan: He had good relief with a large volume thoracentesis of his left side. Repeat x-ray shows persistent and pleural effusion. I would discuss with radiology to see if another thoracentesis would be beneficial prior to patient going home. (2) Acute kidney injury superimposed on chronic kidney disease Is this a current diagnosis for this admission?: Yes Plan: His base creatinine around 3.5 and did speak around 4.7. He is nonoliguric. Continue present lines of management. No acute indications for initiation of renal replacements. (3) Chronic kidney disease, stage 3 Is this a current diagnosis for this admission?: Yes Plan: He has had underlying CKD stage III/IV with a base creatinine of around 3.5. Currently acute on chronic injury. I will continue on IV diuresis while patient is in the hospital. 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 His effusions could have been a combination of his CHF/of kidney failure/possible early infection in his lungs. (5) Type 2 diabetes mellitus Qualifiers: Diabetes mellitus mcfp insulin use: unspecified mcfp insulin use status Diabetes mellitus complication status: with unspecified complications Qualified Code(s): E11.8 - Type 2 diabetes mellitus with unspecified complications Is this a current diagnosis for this admission?: Yes Plan: Advised tight diabetic control. (6) Hypertension Qualifiers: Hypertension type: essential hypertension Qualified Code(s): I10 - Essential (primary) hypertension Is this a current diagnosis for this admission?: Yes Plan: Currently low normal. I am going to cut back his amlodipine to 2.5 twice daily. Monitor
--- NOTE | 2018-07-30 13:33 | PDOC PROGRESS REPORT ---
Subjective Progress Note for:: 07/30/18 Subjective:: Patient is currently doing fair Denied any chest pain to than any shortness of the breath No fever no chills Repeat chest x-ray suggest a persistent left pleural effusion and discussed with the pulmonary Dr. Taylor and suggest to repeat the ultrasound of the chest and if is still fluid consider chest tube placement Reason For Visit: L SIDE PLEURAL EFFUSION Physical Exam Vital Signs: Temp Pulse Resp BP Pulse Ox 97.8 F 55 L 18 135/60 H 98 07/30/18 11:39 07/30/18 11:39 07/30/18 11:39 07/30/18 11:39 07/30/18 11:39 Intake & Output 07/29/18 07/30/18 07/31/18 06:59 06:59 06:59 Intake Total 1245 1689 50 Output Total 1785 1200 Balance -540 489 50 Weight 98.5 kg 97.7 kg General appearance: PRESENT: no acute distress, well-developed, well-nourished Head exam: PRESENT: atraumatic, normocephalic Eye exam: PRESENT: conjunctiva pink, EOMI, PERRLA. ABSENT: scleral icterus Ear exam: PRESENT: normal external ear exam Mouth exam: PRESENT: moist, tongue midline Neck exam: PRESENT: full ROM. ABSENT: carotid bruit, JVD, lymphadenopathy, thyromegaly Respiratory exam: PRESENT: clear to auscultation bonifacio Cardiovascular exam: PRESENT: RRR. ABSENT: diastolic murmur, rubs, systolic murmur Vascular exam: PRESENT: normal capillary refill GI/Abdominal exam: PRESENT: normal bowel sounds, soft. ABSENT: distended, guarding, mass, organolmegaly, rebound, tenderness Rectal exam: PRESENT: deferred Musculoskeletal exam: PRESENT: ambulatory Neurological exam: PRESENT: alert, awake, oriented to person, oriented to place, oriented to time, oriented to situation, CN II-XII grossly intact. ABSENT: motor sensory deficit Psychiatric exam: PRESENT: appropriate affect, normal mood. ABSENT: homicidal ideation, suicidal ideation Skin exam: PRESENT: dry, intact, warm. ABSENT: cyanosis, rash Results Laboratory Results: 07/28/18 04:47 07/30/18 04:37 07/30/18 07/30/18 04:37 10:30 Carbonic Acid 0.99 L HCO3/H2CO3 Ratio 21:1 ABG pH 7.43 ABG pCO2 33.0 L ABG pO2 76.4 L ABG HCO3 21.5 ABG O2 Saturation 95.8 ABG Base Excess -2.3 FiO2 21L Sodium 140.7 Potassium 4.2 Chloride 108 H Carbon Dioxide 24 Anion Gap 9 BUN 70 H Creatinine 4.74 H Est GFR ( Amer) 14 L Est GFR (Non-Af Amer) 12 L Glucose 158 H Calcium 8.1 L 07/26/18 15:08 Pleural Fluid - Left Pleural Effusion AFB Smear Concentration - Final 07/26/18 15:08 Pleural Fluid - Left Pleural Effusion Acid Fast Bacilli Smear - Final 07/26/18 15:08 Pleural Fluid - Left Pleural Effusion Gram Stain - Final 07/26/18 15:08 Pleural Fluid - Left Pleural Effusion Body Fluid Culture - Final NO AEROBIC OR ANAEROBIC ORGANISMS RECOVERED Impressions: Thoracentesis Ultrasound 07/26/18 10:59 IMPRESSION: SUCCESSFUL THORACENTESIS USING ULTRASOUND GUIDANCE. Chest X-Ray 07/30/18 00:00 IMPRESSION: 1. No significant interval changes since the prior study dated 07/28/2018. At the left lung base consolidation/atelectasis and left pleural effusion. 2. Cardiomegaly mild pulmonary vascular congestion. Assessment & Plan - Diagnosis (1) Pleural effusion Is this a current diagnosis for this admission?: Yes Plan: All transudate fluid for most likely possible chronic kidney disease diastolic heart failure and hypoalbuminemia We will get the ultrasound for the chest (2) Acute renal failure Qualifiers: Acute renal failure type: unspecified Qualified Code(s): N17.9 - Acute kidney failure, unspecified Is this a current diagnosis for this admission?: Yes Plan: To follow with the Dr. Yanes (3) Hypertension Qualifiers: Hypertension type: essential hypertension Qualified Code(s): I10 - Essential (primary) hypertension Is this a current diagnosis for this admission?: Yes Plan: His current medication (4) Chronic kidney disease Qualifiers: Chronic kidney disease stage: stage 3 (moderate) Qualified Code(s): N18.3 - Chronic kidney disease, stage 3 (moderate) Is this a current diagnosis for this admission?: Yes (5) Type 2 diabetes mellitus Qualifiers: Diabetes mellitus penitentiary insulin use: 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 Diabetes mellitus complication status: with unspecified complications Qualified Code(s): E11.8 - Type 2 diabetes mellitus with unspecified complications Is this a current diagnosis for this admission?: Yes Plan: Continues to current insulin and sliding scale (6) Hyperlipemia Qualifiers: Hyperlipidemia type: unspecified Qualified Code(s): E78.5 - Hyperlipidemia, unspecified Is this a current diagnosis for this admission?: Yes (7) Coronary artery disease Qualifiers: Coronary Disease-Associated Artery/Lesion type: unspecified vessel or lesion type Associated angina: without angina Is this a current diagnosis for this admission?: Yes Plan: Patient's recent cardiology workup is stable (8) Congestive heart failure Qualifiers: Heart failure type: diastolic Heart failure chronicity: chronic Qualified Code(s): I50.32 - Chronic diastolic (congestive) heart failure Is this a current diagnosis for this admission?: Yes - Time Time Spent with patient: 15-24 minutes Medications reviewed and adjusted accordingly: Yes Anticipated discharge: Home Within: Other - Plan Summary Plan Summary: discuss with the other coordinate insurance healthcare consultant discussed with the patient and the
--- NOTE | 2018-07-30 17:49 | RADIOLOGY REPORT (SQ) ---
EXAM DESCRIPTION: U/S CHEST COMPLETED DATE/TIME: 07/30/2018 5:35 pm REASON FOR STUDY: Recurrent pleural effusion COMPARISON: Chest films 07/30/2018, 07/28/2018, 07/26/2018 Thoracentesis 07/26/2018 TECHNIQUE: Ultrasound of the right and left chest was performed to quantify pleural effusions. LIMITATIONS: None. FINDINGS: No right pleural effusion. Re-accumulation of a moderate size pleural effusion since the prior thoracentesis IMPRESSION: Re-accumulation of a moderate size left pleural effusion TECHNICAL DOCUMENTATION: JOB ID: [id number] [employer]- All Rights Reserved Reading location - IP/workstation name: [email or web address]
[2018-07-30] MEDS: ATORVASTATIN CALCIUM 40 MG TABLET PO SCH (21:54)
[2018-07-30] MEDS: AMLODIPINE BESYLATE 2.5 MG TABLET PO SCH (21:55)
[2018-07-30] MEDS ORDERED: AMLODIPINE BESYLATE 5 MG TABLET PO SCH (22:00)
[2018-07-31] MEDS: HYDRALAZINE HCL 25 MG TABLET PO SCH ×3 (05:22→21:55)
[2018-07-31] MEDS: CARVEDILOL 12.5 MG TABLET PO SCH ×2 (05:26→18:07)
[2018-07-31] MEDS: LANSOPRAZOLE 15 MG TAB.RAP.DR PO SCH (05:26)
[2018-07-31] MEDS: LEVOTHYROXINE SODIUM 0.1 MG TABLET PO SCH (05:26)
[2018-07-31 06:55] LABS: ABSOLUTE BASOPHILS # (AUTO) 0.1 10^3/uL (0.0-0.2); ABSOLUTE EOSINOPHILS # (AUTO) 0.4 10^3/uL (0.0-0.6); ABSOLUTE LYMPHOCYTES (AUTO) 1.1 10^3/uL (0.5-4.7); ABSOLUTE MONOCYTES (AUTO) 0.6 10^3/uL (0.1-1.4); ABSOLUTE NEUT (AUTO) 3.1 10^3/uL (1.7-8.2); EOSINOPHILS % (AUTO) 6.8 % (0-6); HEMATOCRIT 26.5 % (37.9-51.0); LYMPHOCYTES % (AUTO) 21.5 % (13-45); MEAN CORPUSCULAR HEMOGLOBIN 30.7 pg (27.0-33.4); MEAN CORPUSCULAR HGB CONC 33.9 g/dL (32.0-36.0); MEAN CORPUSCULAR VOLUME 91 fl (80-97); MONOCYTES % (AUTO) 11.5 % (3-13); PLATELET COUNT 133 10^3/uL (150-450); RED BLOOD COUNT 2.92 10^6/uL (4.35-5.55); RED CELL DISTRIBUTION WIDTH 16.2 % (11.5-14.0); SEGMENTED NEUTROPHILS % (AUTO) 59.2 % (42-78); TOTAL CELLS COUNTED % (AUTO) 100 %; WHITE BLOOD COUNT 5.2 10^3/uL (4.0-10.5)
[2018-07-31 07:06] LABS: ANION GAP 9 (5-19); BLOOD UREA NITROGEN 67 mg/dL (7-20); CALCIUM 8.1 mg/dL (8.4-10.2); CARBON DIOXIDE 23 mmol/L (22-30); CHLORIDE 109 mmol/L (98-107); GLUCOSE 130 mg/dL (75-110); SODIUM 140.6 mmol/L (137-145)
[2018-07-31] MEDS: LOSARTAN POTASSIUM 50 MG TABLET PO SCH (09:55)
[2018-07-31] MEDS: AMLODIPINE BESYLATE 2.5 MG TABLET PO SCH ×2 (09:56→21:55)
[2018-07-31] MEDS: SODIUM BICARBONATE 650 MG TABLET PO SCH (10:13)
[2018-07-31] MEDS: TAMSULOSIN HCL 0.4 MG CAP.SR.24H PO SCH (10:13)
[2018-07-31] MEDS: ALLOPURINOL 100 MG TABLET PO SCH (10:14)
[2018-07-31] MEDS: ASPIRIN 81 MG TABLET, CHEWABLE PO SCH (10:14)
[2018-07-31] MEDS: INSULIN LISPRO 100 UNIT/ML 3 ML VIAL SUBCUT SCH ×4 (10:14→21:51)
[2018-07-31] MEDS: FUROSEMIDE INJ/PF 40 MG/4 ML SDV IV SCH ×2 (10:15→21:51)
[2018-07-31] MEDS: INSULIN GLARGINE,HUM.REC.ANLOG 300 UNIT/3 ML INSULN.PEN SUBCUT SCH ×2 (10:15→21:55)
[2018-07-31] MEDS: CEFEPIME HCL 2 GM in DEXTROSE 5%-WATER 50 ML IV SCH (10:16)
--- NOTE | 2018-07-31 11:09 | PDOC PROGRESS REPORT ---
Subjective Progress Note for:: 07/31/18 Subjective:: Patient is currently doing fair No chest pain no short of breath Patient ultrasound of the chest suggest a moderate-sized left-sided pleural effusion Reason For Visit: L SIDE PLEURAL EFFUSION Physical Exam Vital Signs: Temp Pulse Resp BP Pulse Ox 97.4 F 51 L 17 127/45 H 100 07/31/18 08:06 07/31/18 08:06 07/31/18 08:06 07/31/18 08:06 07/31/18 08:06 Intake & Output 07/30/18 07/31/18 08/01/18 06:59 06:59 06:59 Intake Total 1689 1861 50 Output Total 1200 1650 Balance 489 211 50 Weight 97.7 kg 97.6 kg General appearance: PRESENT: no acute distress, well-developed, well-nourished Head exam: PRESENT: atraumatic, normocephalic Eye exam: PRESENT: conjunctiva pink, EOMI, PERRLA. ABSENT: scleral icterus Ear exam: PRESENT: normal external ear exam Mouth exam: PRESENT: moist, tongue midline Neck exam: PRESENT: full ROM. ABSENT: carotid bruit, JVD, lymphadenopathy, thyromegaly Respiratory exam: PRESENT: clear to auscultation bonifacio Cardiovascular exam: PRESENT: RRR. ABSENT: diastolic murmur, rubs, systolic murmur Vascular exam: PRESENT: normal capillary refill GI/Abdominal exam: PRESENT: normal bowel sounds, soft. ABSENT: distended, guarding, mass, organolmegaly, rebound, tenderness Rectal exam: PRESENT: deferred Musculoskeletal exam: PRESENT: ambulatory Neurological exam: PRESENT: alert, awake, oriented to person, oriented to place, oriented to time, oriented to situation, CN II-XII grossly intact. ABSENT: motor sensory deficit Psychiatric exam: PRESENT: appropriate affect, normal mood. ABSENT: homicidal ideation, suicidal ideation Skin exam: PRESENT: dry, intact, warm. ABSENT: cyanosis, rash Results Laboratory Results: 07/31/18 05:50 07/31/18 05:50 07/31/18 07/31/18 05:50 05:50 WBC 5.2 RBC 2.92 L Hgb 9.0 L Hct 26.5 L MCV 91 MCH 30.7 MCHC 33.9 RDW 16.2 H Plt Count 133 L Seg Neutrophils % 59.2 Lymphocytes % 21.5 Monocytes % 11.5 Eosinophils % 6.8 H Basophils % 1.0 Absolute Neutrophils 3.1 Absolute Lymphocytes 1.1 Absolute Monocytes 0.6 Absolute Eosinophils 0.4 Absolute Basophils 0.1 Sodium 140.6 Potassium 4.0 Chloride 109 H Carbon Dioxide 23 Anion Gap 9 BUN 67 H Creatinine 4.98 H Est GFR ( Amer) 13 L Est GFR (Non-Af Amer) 11 L Glucose 130 H Calcium 8.1 L 07/26/18 15:08 Pleural Fluid - Left Pleural Effusion AFB Smear Concentration - Final 07/26/18 15:08 Pleural Fluid - Left Pleural Effusion Acid Fast Bacilli Smear - Final 07/26/18 15:08 Pleural Fluid - Left Pleural Effusion Gram Stain - Final 07/26/18 15:08 Pleural Fluid - Left Pleural Effusion Body Fluid Culture - Final NO AEROBIC OR ANAEROBIC ORGANISMS RECOVERED Impressions: Thoracentesis Ultrasound 07/26/18 10:59 IMPRESSION: SUCCESSFUL THORACENTESIS USING ULTRASOUND GUIDANCE. Chest Ultrasound 07/30/18 00:00 IMPRESSION: Re-accumulation of a moderate size left pleural effusion Chest X-Ray 07/30/18 00:00 IMPRESSION: 1. No significant interval changes since the prior study dated 07/28/2018. At the left lung base consolidation/atelectasis and left pleural effusion. 2. Cardiomegaly mild pulmonary vascular congestion. Assessment & Plan - Diagnosis (1) Pleural effusion Is this a current diagnosis for this admission?: Yes Plan: Recurrent with the multiple etiology mostly transudate fluid As per discussed with the nephrology and pulmonary consult the surgery for the chest tube placement Discussed with the patient and the on the bedside Patient's pleural cytology is negative for any malignancy (2) Acute renal failure Qualifiers: Qualified Code(s): N17.9 - Acute kidney failure, unspecified Is this a current diagnosis for this admission?: Yes Plan: To follow with the Dr. Yanes (3) Hypertension Qualifiers: Qualified Code(s): I10 - Essential (primary) hypertension Is this a current diagnosis for this admission?: Yes Plan: His current medication (4) Chronic kidney disease Qualifiers: Qualified Code(s): N18.3 - Chronic kidney disease, stage 3 (moderate) Is this a current diagnosis for this admission?: Yes (5) Type 2 diabetes mellitus Qualifiers: Qualified Code(s): E11.8 - Type 2 diabetes mellitus with unspecified complications Is this a current diagnosis for this admission?: Yes Plan: Continues to current insulin and sliding scale (6) Hyperlipemia Qualifiers: Qualified Code(s): E78.5 - Hyperlipidemia, unspecified Is this a current diagnosis for this admission?: Yes (7) Coronary artery disease Is this a current diagnosis for this admission?: Yes Plan: Patient's recent cardiology workup is stable (8) Congestive heart failure Qualifiers: Qualified Code(s): I50.32 - Chronic diastolic (congestive) heart failure Is this a current diagnosis for this admission?: Yes Plan: Into the Dr. Arceo patient's recent echocardiogram with a normal EF - Time Time Spent with patient: 15-24 minutes Medications reviewed and adjusted accordingly: Yes Anticipated discharge: Home Within: Other - Plan Summary Plan Summary: Consult the surgery for the possible chest tube evaluations Discussed with the patient and the on the bedside regarding all plan Coordinate care with the energy sales consultant
--- NOTE | 2018-07-31 11:16 | PDOC PROGRESS REPORT ---
Subjective Progress Note for:: 07/31/18 Reason For Visit: Patient seen today. His is at the bedside. He says he is feeling better. He has been ambulating in the caudal dose without any obviously being short of breath. No complaints of any chest pain, fever or chills. Labs and medications were reviewed with the patient that shows slightly worsening creatinine. His chest x-ray shows reaccumulation of fluid in his left lung. Physical Exam Vital Signs: Temp Pulse Resp BP Pulse Ox 97.4 F 51 L 17 127/45 H 100 07/31/18 08:06 07/31/18 08:06 07/31/18 08:06 07/31/18 08:06 07/31/18 08:06 Intake & Output 07/30/18 07/31/18 08/01/18 06:59 06:59 06:59 Intake Total 1689 1861 50 Output Total 1200 1650 Balance 489 211 50 Weight 97.7 kg 97.6 kg General appearance: PRESENT: no acute distress Respiratory exam: PRESENT: clear to auscultation bonifacio, decreased breath sounds. ABSENT: crackles Cardiovascular exam: PRESENT: +S1, +S2, systolic murmur GI/Abdominal exam: PRESENT: normal bowel sounds, soft. ABSENT: organomegaly, tenderness Extremities exam: PRESENT: pedal edema Neurological exam: PRESENT: alert, awake, oriented to person, oriented to place, oriented to time Skin exam: ABSENT: erythema, mottled, rash Results Laboratory Results: 07/31/18 05:50 07/31/18 05:50 07/31/18 07/31/18 05:50 05:50 WBC 5.2 RBC 2.92 L Hgb 9.0 L Hct 26.5 L MCV 91 MCH 30.7 MCHC 33.9 RDW 16.2 H Plt Count 133 L Seg Neutrophils % 59.2 Lymphocytes % 21.5 Monocytes % 11.5 Eosinophils % 6.8 H Basophils % 1.0 Absolute Neutrophils 3.1 Absolute Lymphocytes 1.1 Absolute Monocytes 0.6 Absolute Eosinophils 0.4 Absolute Basophils 0.1 Sodium 140.6 Potassium 4.0 Chloride 109 H Carbon Dioxide 23 Anion Gap 9 BUN 67 H Creatinine 4.98 H Est GFR ( Amer) 13 L Est GFR (Non-Af Amer) 11 L Glucose 130 H Calcium 8.1 L 07/26/18 15:08 Pleural Fluid - Left Pleural Effusion AFB Smear Concentration - Final 07/26/18 15:08 Pleural Fluid - Left Pleural Effusion Acid Fast Bacilli Smear - Final 07/26/18 15:08 Pleural Fluid - Left Pleural Effusion Gram Stain - Final 07/26/18 15:08 Pleural Fluid - Left Pleural Effusion Body Fluid Culture - Final NO AEROBIC OR ANAEROBIC ORGANISMS RECOVERED Impressions: Thoracentesis Ultrasound 07/26/18 10:59 IMPRESSION: SUCCESSFUL THORACENTESIS USING ULTRASOUND GUIDANCE. Chest Ultrasound 07/30/18 00:00 IMPRESSION: Re-accumulation of a moderate size left pleural effusion Chest X-Ray 07/30/18 00:00 IMPRESSION: 1. No significant interval changes since the prior study dated 07/28/2018. At the left lung base consolidation/atelectasis and left pleural effusion. 2. Cardiomegaly mild pulmonary vascular congestion. Assessment & Plan - Diagnosis (1) Pleural effusion Is this a current diagnosis for this admission?: Yes Plan: Reaccumulation of left-sided pleural effusion. Plan is to get chest tube in. Etiology of pleural effusion includes possible infections in the chest/hypoalbuminemia/diastolic heart failure. (2) Acute kidney injury superimposed on chronic kidney disease Is this a current diagnosis for this admission?: Yes Plan: His base creatinine around 3.5 and today is at 4.9. He is nonoliguric. Nyla nue present lines of management. No acute indications for initiation of renal replacements.We will continue to monitor. (3) Chronic kidney disease, stage 3 Is this a current diagnosis for this admission?: Yes Plan: He has had underlying CKD stage III/IV with a base creatinine of around 3.5. Currently acute on chronic injury. I will continue on IV diuresis while patient is in the hospital. 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 His effusions could have been a combination of his CHF/Hypoalbuminemia/ kidney failure/possible early infection in his lungs. (5) Type 2 diabetes mellitus Qualifiers: Diabetes mellitus perianesthesia nurse insulin use: unspecified perianesthesia nurse insulin use status Diabetes mellitus complication status: with unspecified complications Qualified Code(s): E11.8 - Type 2 diabetes mellitus with unspecified complications Is this a current diagnosis for this admission?: Yes Plan: Advised tight diabetic control. (6) Hypertension Qualifiers: Hypertension type: essential hypertension Qualified Code(s): I10 - Essential (primary) hypertension Is this a current diagnosis for this admission?: Yes Plan: Controlled. Monitor
[2018-07-31] MEDS: ATORVASTATIN CALCIUM 40 MG TABLET PO SCH (21:51)
[2018-08-01] MEDS: LANSOPRAZOLE 15 MG TAB.RAP.DR PO SCH (05:12)
[2018-08-01] MEDS: LEVOTHYROXINE SODIUM 0.1 MG TABLET PO SCH (05:12)
[2018-08-01] MEDS: HYDRALAZINE HCL 25 MG TABLET PO SCH ×3 (05:13→21:45)
[2018-08-01] MEDS: CARVEDILOL 12.5 MG TABLET PO SCH ×2 (05:15→17:36)
[2018-08-01 06:17] LABS: ANION GAP 9 (5-19); BLOOD UREA NITROGEN 69 mg/dL (7-20); CALCIUM 8.6 mg/dL (8.4-10.2); CARBON DIOXIDE 24 mmol/L (22-30); CHLORIDE 109 mmol/L (98-107); GLUCOSE 128 mg/dL (75-110); POTASSIUM 4.5 mmol/L (3.6-5.0)
[2018-08-01 08:02] LABS: INTERNATIONAL RATION (INR) 1.03
[2018-08-01 08:03] LABS: PARTIAL THROMBOPLASTIN TIME 35.7 SEC (23.5-35.8)
[2018-08-01] MEDS: INSULIN LISPRO 100 UNIT/ML 3 ML VIAL SUBCUT SCH ×4 (08:09→21:38)
--- NOTE | 2018-08-01 09:11 | PDOC PROGRESS REPORT ---
Subjective Progress Note for:: 08/01/18 Subjective:: Patient is currently doing well Patient is denied any chest pain denied any shortness of the breath As per discussed with the surgery Reason For Visit: L SIDE PLEURAL EFFUSION Physical Exam Vital Signs: Temp Pulse Resp BP Pulse Ox 97.8 F 56 L 19 137/54 H 100 08/01/18 08:18 08/01/18 08:18 08/01/18 08:18 08/01/18 08:18 08/01/18 08:18 Intake & Output 07/31/18 08/01/18 08/02/18 06:59 06:59 06:59 Intake Total 1861 1557 Output Total 1650 2075 Balance 211 -518 Weight 97.6 kg 97.4 kg General appearance: PRESENT: no acute distress, well-developed, well-nourished Head exam: PRESENT: atraumatic, normocephalic Eye exam: PRESENT: conjunctiva pink, EOMI, PERRLA. ABSENT: scleral icterus Ear exam: PRESENT: normal external ear exam Mouth exam: PRESENT: moist, tongue midline Neck exam: PRESENT: full ROM. ABSENT: carotid bruit, JVD, lymphadenopathy, thyromegaly Respiratory exam: PRESENT: clear to auscultation bonifacio Cardiovascular exam: PRESENT: RRR. ABSENT: diastolic murmur, rubs, systolic murmur Vascular exam: PRESENT: normal capillary refill GI/Abdominal exam: PRESENT: normal bowel sounds, soft. ABSENT: distended, guarding, mass, organolmegaly, rebound, tenderness Rectal exam: PRESENT: deferred Musculoskeletal exam: PRESENT: ambulatory Neurological exam: PRESENT: alert, awake, oriented to person, oriented to place, oriented to time, oriented to situation, CN II-XII grossly intact. ABSENT: motor sensory deficit Psychiatric exam: PRESENT: appropriate affect, normal mood. ABSENT: homicidal ideation, suicidal ideation Skin exam: PRESENT: dry, intact, warm. ABSENT: cyanosis, rash Results Laboratory Results: 07/31/18 05:50 08/01/18 05:33 08/01/18 05:33 Sodium 142.0 Potassium 4.5 Chloride 109 H Carbon Dioxide 24 Anion Gap 9 BUN 69 H Creatinine 5.02 H Est GFR ( Amer) 13 L Est GFR (Non-Af Amer) 11 L Glucose 128 H Calcium 8.6 Impressions: Thoracentesis Ultrasound 07/26/18 10:59 IMPRESSION: SUCCESSFUL THORACENTESIS USING ULTRASOUND GUIDANCE. Chest Ultrasound 07/30/18 00:00 IMPRESSION: Re-accumulation of a moderate size left pleural effusion Chest X-Ray 07/30/18 00:00 IMPRESSION: 1. No significant interval changes since the prior study dated 07/28/2018. At the left lung base consolidation/atelectasis and left pleural effusion. 2. Cardiomegaly mild pulmonary vascular congestion. Assessment & Plan - Diagnosis (1) Pleural effusion Is this a current diagnosis for this admission?: Yes Plan: As per discussed with the Dr. Yanes and Dr. Taylor will start the patient on the ultrasound-guided thoracocentesis and if is still come back consider the pleurodesis (2) Acute renal failure Qualifiers: Acute renal failure type: unspecified Qualified Code(s): N17.9 - Acute kidney failure, unspecified Is this a current diagnosis for this admission?: Yes Plan: Stable follow with the nephrology (3) Hypertension Qualifiers: Hypertension type: essential hypertension Qualified Code(s): I10 - Essential (primary) hypertension Is this a current diagnosis for this admission?: Yes Plan: His current medication (4) Chronic kidney disease Qualifiers: Chronic kidney disease stage: stage 3 (moderate) Qualified Code(s): N18.3 - Chronic kidney disease, stage 3 (moderate) Is this a current diagnosis for this admission?: Yes (5) Type 2 diabetes mellitus Qualifiers: Diabetes mellitus skilled nursing insulin use: unspecified skilled nursing insulin use status Diabetes mellitus complication status: with unspecified complications Qualified Code(s): E11.8 - Type 2 diabetes mellitus with unspecified complications Is this a current diagnosis for this admission?: Yes Plan: Continues to current insulin and sliding scale (6) Hyperlipemia Qualifiers: Hyperlipidemia type: unspecified Qualified Code(s): E78.5 - Hyperlipidemia, unspecified Is this a current diagnosis for this admission?: Yes (7) Coronary artery disease Qualifiers: Coronary Disease-Associated Artery/Lesion type: unspecified vessel or lesion type Associated angina: without angina Is this a current diagnosis for this admission?: Yes Plan: Patient's recent cardiology workup is stable (8) Congestive heart failure Qualifiers: Heart failure type: diastolic Heart failure chronicity: chronic Qualified Code(s): I50.32 - Chronic diastolic (congestive) heart failure Is this a current diagnosis for this admission?: Yes Plan: Into the Dr. Arceo patient's recent echocardiogram with a normal EF - Time Time Spent with patient: 15-24 minutes Medications reviewed and adjusted accordingly: Yes Anticipated discharge: Home Within: within 24 hours - Plan Summary Plan Summary: We will schedule the thoracocentesis today discussed with the patient and the family in the room discussed with the coordinate insurance healthcare consultant as per discussed with the nephrology and pulmonary start the patient on the Levaquin with a loading dose of 500and 250 daily for 10 days cover any atypical bacteria
[2018-08-01] MEDS ORDERED: LEVOFLOXACIN 500 MG TABLET PO SCH (10:00)
--- NOTE | 2018-08-01 10:49 | PDOC PROGRESS REPORT ---
Subjective Progress Note for:: 08/01/18 Reason For Visit: Patient seen today. His is at the bedside. He has been ambulating in the corridors without any difficulty in breathing or chest pains. After further discussions with the surgeons yesterday the plan is to do a repeat ultrasound and see if he should have further thoracentesis. He would be discharged after that as long as he remains stable. Repeat chest x-ray and may be CT scan 2-3 weeks post discharge to see if any reaccumulation of fluids especially if symptomatic. In decision at that time would be made whether he needs to have a chest tube following which he might undergo pleurodesis. Renal functions are remaining rather stable though he has had acute decompensation from his baseline creatinine of 3.5 and currently creatinine at 5. However no acute indications [place] for renal replacements at the moment. Labs and medications are reviewed wi th patient and his . Physical Exam Vital Signs: Temp Pulse Resp BP Pulse Ox 97.8 F 56 L 19 137/54 H 100 08/01/18 08:18 08/01/18 08:18 08/01/18 08:18 08/01/18 08:18 08/01/18 08:18 Intake & Output 07/31/18 08/01/18 08/02/18 06:59 06:59 06:59 Intake Total 1861 1557 Output Total 1650 2075 Balance 211 -518 Weight 97.6 kg 97.4 kg General appearance: PRESENT: no acute distress Respiratory exam: PRESENT: clear to auscultation bonifacio. ABSENT: crackles Cardiovascular exam: PRESENT: +S1, +S2, systolic murmur GI/Abdominal exam: PRESENT: normal bowel sounds, soft. ABSENT: organomegaly, tenderness Extremities exam: PRESENT: pedal edema Neurological exam: PRESENT: alert, awake, oriented to person, oriented to place, oriented to time Psychiatric exam: PRESENT: appropriate affect Skin exam: ABSENT: cyanosis, erythema, mottled, rash Results Laboratory Results: 07/31/18 05:50 08/01/18 05:33 08/01/18 05:33 Sodium 142.0 Potassium 4.5 Chloride 109 H Carbon Dioxide 24 Anion Gap 9 BUN 69 H Creatinine 5.02 H Est GFR ( Amer) 13 L Est GFR (Non-Af Amer) 11 L Glucose 128 H Calcium 8.6 Impressions: Thoracentesis Ultrasound 07/26/18 10:59 IMPRESSION: SUCCESSFUL THORACENTESIS USING ULTRASOUND GUIDANCE. Chest Ultrasound 07/30/18 00:00 IMPRESSION: Re-accumulation of a moderate size left pleural effusion Chest X-Ray 07/30/18 00:00 IMPRESSION: 1. No significant interval changes since the prior study dated 07/28/2018. At the left lung base consolidation/atelectasis and left pleural effusion. 2. Cardiomegaly mild pulmonary vascular congestion. Assessment & Plan - Diagnosis (1) Pleural effusion Is this a current diagnosis for this admission?: Yes Plan: Reaccumulation of left-sided pleural effusion. After further discussions with the surgeon the plan is to do another ultrasound/x-ray of the chest and plan for thoracentesis if needed.Following that he should be discharged and repeat evaluations done in 2-3 weeks time and further recurrence of fluid in his lungs then plan will be made to introduce a chest tube followed by possible pleurodesis. Meanwhile advised patient to be on a high protein diet. Will monitor renal functions. (2) Acute kidney injury superimposed on chronic kidney disease Is this a current diagnosis for this admission?: Yes Plan: His base creatinine around 3.5 and today is at 5.0. He is nonoliguric. Continue present lines of management. No acute indications for initiation of renal replacements.We will continue to monitor.He will be followed as an outpatient in 2 weeks time with labs at which point further decisions will be made whether he needs to be initiate renal replacements especially if renal functions are getting worse and he is symptomatic. (3) Chronic kidney disease, stage 3 Is this a current diagnosis for this admission?: Yes Plan: He has had underlying CKD stage III/IV with a base creatinine of around 3.5. Currently acute on chronic injury. I will continue on IV diuresis while patient is in the hospital. 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 His effusions could have been a combination of his CHF/Hypoalbuminemia/ kidney failure/possible early infection in his lungs. (5) Type 2 diabetes mellitus Qualifiers: Diabetes mellitus senior care insulin use: unspecified senior care insulin use status Diabetes mellitus complication status: with unspecified complications Qualified Code(s): E11.8 - Type 2 diabetes mellitus with unspecified complications Is this a current diagnosis for this admission?: Yes Plan: Advised tight diabetic control. (6) Hypertension Qualifiers: Hypertension type: essential hypertension Qualified Code(s): I10 - Essential (primary) hypertension Is this a current diagnosis for this admission?: Yes Plan: Controlled. Monitor
[2018-08-01] MEDS: LOSARTAN POTASSIUM 50 MG TABLET PO SCH (11:01)
[2018-08-01] MEDS: ALLOPURINOL 100 MG TABLET PO SCH (11:02)
[2018-08-01] MEDS: TAMSULOSIN HCL 0.4 MG CAP.SR.24H PO SCH (11:02)
[2018-08-01] MEDS: FUROSEMIDE INJ/PF 40 MG/4 ML SDV IV SCH ×2 (11:02→21:37)
[2018-08-01] MEDS: ASPIRIN 81 MG TABLET, CHEWABLE PO SCH (11:02)
[2018-08-01] MEDS: INSULIN GLARGINE,HUM.REC.ANLOG 300 UNIT/3 ML INSULN.PEN SUBCUT SCH ×2 (11:03→21:45)
[2018-08-01] MEDS: CEFEPIME HCL 2 GM in DEXTROSE 5%-WATER 50 ML IV SCH (11:04)
[2018-08-01] MEDS: AMLODIPINE BESYLATE 2.5 MG TABLET PO SCH ×2 (11:05→21:46)
--- NOTE | 2018-08-01 14:52 | RADIOLOGY REPORT (SQ) ---
EXAM DESCRIPTION: U/S THORACENTESIS W/CHEST TUBE; CHEST SINGLE VIEW COMPLETED DATE/TIME: 08/01/2018 2:22 pm; 08/01/2018 2:14 pm REASON FOR STUDY: pleural effusion; S/P LEFT CHEST TUBE PLACEMENT COMPARISON: None FLUORO TIME: None. 1 images saved to PACS. TECHNIQUE: Image guided chest tube placement using sterile technique. LIMITATIONS: None FINDINGS: After written consent was obtained and explaining the risks and benefits of conscious raleigh tion , the patient was placed upright. A time out was then called for site verification. An entry si te was then marked using ultrasound guidance. The posterior left wall was then prepped and draped in a sterile fashion. The site was then anesthetized using 5.0 ml of 1% lidocaine solution. An 11 blad e scalpel was used to make a small skin incision. A 18g -7cm needle was advanced into the chest wall . A.038 guidewire was passed through the needle. The tract was then dilated using a 8, 10 and 12 Fr ench dilator. A 12 fr drain was then placed over the wire. The catheter was then attached to the co llection device. The entry site was covered with a sterile bandage. No conscious sedation. IMPRESSION: SUCCESSFUL PLACEMENT OF A LEFT SIDED CHEST TUBE USING ULTRASOUND GUIDANCE. COMMENT: Patient medication list reviewed: Yes- Quality ID# [id number]:Eligible professional attests to do cumenting in the medical record they obtained, updated, or reviewed the patient's current medications . Quality ID 145: Final reports for procedures using fluoroscopy that document radiation exposure tawanda crystal, or exposure time and number of fluorographic images (if radiation exposure indices are not avail able) TECHNICAL DOCUMENTATION: JOB ID: [id number] [employer]- All Rights Reserved Reading location - IP/workstation name: [email or web address] [employer] EQUIPMENT [email or web address]
--- NOTE | 2018-08-01 14:52 | RADIOLOGY REPORT (SQ) ---
EXAM DESCRIPTION: U/S THORACENTESIS W/CHEST TUBE; CHEST SINGLE VIEW COMPLETED DATE/TIME: 08/01/2018 2:22 pm; 08/01/2018 2:14 pm REASON FOR STUDY: pleural effusion; S/P LEFT CHEST TUBE PLACEMENT COMPARISON: None FLUORO TIME: None. 1 images saved to PACS. TECHNIQUE: Image guided chest tube placement using sterile technique. LIMITATIONS: None FINDINGS: After written consent was obtained and explaining the risks and benefits of conscious raleigh tion , the patient was placed upright. A time out was then called for site verification. An entry si te was then marked using ultrasound guidance. The posterior left wall was then prepped and draped in a sterile fashion. The site was then anesthetized using 5.0 ml of 1% lidocaine solution. An 11 blad e scalpel was used to make a small skin incision. A 18g -7cm needle was advanced into the chest wall . A.038 guidewire was passed through the needle. The tract was then dilated using a 8, 10 and 12 Fr ench dilator. A 12 fr drain was then placed over the wire. The catheter was then attached to the co llection device. The entry site was covered with a sterile bandage. No conscious sedation. IMPRESSION: SUCCESSFUL PLACEMENT OF A LEFT SIDED CHEST TUBE USING ULTRASOUND GUIDANCE. COMMENT: Patient medication list reviewed: Yes- Quality ID# [id number]:Eligible professional attests to do cumenting in the medical record they obtained, updated, or reviewed the patient's current medications . Quality ID 145: Final reports for procedures using fluoroscopy that document radiation exposure tawanda crystal, or exposure time and number of fluorographic images (if radiation exposure indices are not avail able) TECHNICAL DOCUMENTATION: JOB ID: [id number] [employer]- All Rights Reserved Reading location - IP/workstation name: [employer]INET [email or web address]
[2018-08-01] MEDS: ACETAMINOPHEN 325 MG TABLET PO PRN (17:48)
[2018-08-01] MEDS: ATORVASTATIN CALCIUM 40 MG TABLET PO SCH (21:37)
[2018-08-02] MEDS: ACETAMINOPHEN 325 MG TABLET PO PRN (05:08)
[2018-08-02] MEDS: LEVOTHYROXINE SODIUM 0.1 MG TABLET PO SCH (05:09)
[2018-08-02] MEDS: LANSOPRAZOLE 15 MG TAB.RAP.DR PO SCH (05:09)
[2018-08-02] MEDS: CARVEDILOL 12.5 MG TABLET PO SCH ×2 (05:15→17:32)
[2018-08-02] MEDS: HYDRALAZINE HCL 25 MG TABLET PO SCH ×3 (05:15→21:58)
[2018-08-02 07:22] LABS: ANION GAP 10 (5-19); BLOOD UREA NITROGEN 67 mg/dL (7-20); CALCIUM 8.8 mg/dL (8.4-10.2); CARBON DIOXIDE 22 mmol/L (22-30); CHLORIDE 110 mmol/L (98-107); GLUCOSE 147 mg/dL (75-110); POTASSIUM 4.8 mmol/L (3.6-5.0); SODIUM 142.3 mmol/L (137-145)
--- NOTE | 2018-08-02 08:44 | PDOC PROGRESS REPORT ---
Subjective Progress Note for:: 08/02/18 Subjective:: Patient is currently doing well Patient with chest tube placement by radiology yesterday 700 cc fluid came out and overnight another 400 cc came out Patient's denied any chest pain denied any shortness of the breath Reason For Visit: L SIDE PLEURAL EFFUSION Physical Exam Vital Signs: Temp Pulse Resp BP Pulse Ox 97.6 F 63 16 139/48 H 99 08/02/18 07:32 08/02/18 07:32 08/02/18 07:32 08/02/18 07:32 08/02/18 07:32 Intake & Output 08/01/18 08/02/18 08/03/18 06:59 06:59 06:59 Intake Total 1557 1055 Output Total 2075 1175 Balance -518 -120 Weight 97.4 kg 97.8 kg General appearance: PRESENT: no acute distress, well-developed, well-nourished Head exam: PRESENT: atraumatic, normocephalic Eye exam: PRESENT: conjunctiva pink, EOMI, PERRLA. ABSENT: scleral icterus Ear exam: PRESENT: normal external ear exam Mouth exam: PRESENT: moist, tongue midline Neck exam: PRESENT: full ROM. ABSENT: carotid bruit, JVD, lymphadenopathy, thyromegaly Respiratory exam: PRESENT: clear to auscultation bonifacio Cardiovascular exam: PRESENT: RRR. ABSENT: diastolic murmur, rubs, systolic murmur Vascular exam: PRESENT: normal capillary refill GI/Abdominal exam: PRESENT: normal bowel sounds, soft. ABSENT: distended, guarding, mass, organolmegaly, rebound, tenderness Rectal exam: PRESENT: deferred Neurological exam: PRESENT: alert, awake, oriented to person, oriented to place, oriented to time, oriented to situation, CN II-XII grossly intact. ABSENT: motor sensory deficit Psychiatric exam: PRESENT: appropriate affect, normal mood. ABSENT: homicidal ideation, suicidal ideation Skin exam: PRESENT: dry, intact, warm. ABSENT: cyanosis, rash Results Laboratory Results: 07/31/18 05:50 08/02/18 04:17 08/02/18 04:17 Sodium 142.3 Potassium 4.8 Chloride 110 H Carbon Dioxide 22 Anion Gap 10 BUN 67 H Creatinine 4.73 H Est GFR ( Amer) 14 L Est GFR (Non-Af Amer) 12 L Glucose 147 H Calcium 8.8 Impressions: Chest Ultrasound 07/30/18 00:00 IMPRESSION: Re-accumulation of a moderate size left pleural effusion Chest X-Ray 08/01/18 00:00 IMPRESSION: SUCCESSFUL PLACEMENT OF A LEFT SIDED CHEST TUBE USING ULTRASOUND GUIDANCE. Thoracentesis Ultrasound 08/01/18 06:59 IMPRESSION: SUCCESSFUL PLACEMENT OF A LEFT SIDED CHEST TUBE USING ULTRASOUND GUIDANCE. Assessment & Plan - Diagnosis (1) Pleural effusion Is this a current diagnosis for this admission?: Yes Plan: Status post chest tube placement (2) Acute renal failure Qualifiers: Acute renal failure type: unspecified Qualified Code(s): N17.9 - Acute kidney failure, unspecified Is this a current diagnosis for this admission?: Yes Plan: Currently all stable (3) Hypertension Qualifiers: Hypertension type: essential hypertension Qualified Code(s): I10 - Essential (primary) hypertension Is this a current diagnosis for this admission?: Yes Plan: His current medication (4) Chronic kidney disease Qualifiers: Chronic kidney disease stage: stage 3 (moderate) Qualified Code(s): N18.3 - Chronic kidney disease, stage 3 (moderate) Is this a current diagnosis for this admission?: Yes (5) Type 2 diabetes mellitus Qualifiers: Diabetes mellitus care home insulin use: unspecified care home insulin use status Diabetes mellitus complication status: with unspecified complications Qualified Code(s): E11.8 - Type 2 diabetes mellitus with unspecified complications Is this a current diagnosis for this admission?: Yes Plan: Continues to current insulin and sliding scale (6) Hyperlipemia Qualifiers: Hyperlipidemia type: unspecified Qualified Code(s): E78.5 - Hyperlipidemia, unspecified Is this a current diagnosis for this admission?: Yes (7) Coronary artery disease Qualifiers: Coronary Disease-Associated Artery/Lesion type: unspecified vessel or lesion type Associated angina: without angina Is this a current diagnosis for this admission?: Yes Plan: Patient's recent cardiology workup is stable (8) Congestive heart failure Qualifiers: Heart failure type: diastolic Heart failure chronicity: chronic Qualified Code(s): I50.32 - Chronic diastolic (congestive) heart failure Is this a current diagnosis for this admission?: Yes Plan: Into the Dr. Arceo patient's recent echocardiogram with a normal EF - Time Time Spent with patient: 15-24 minutes Medications reviewed and adjusted accordingly: Yes Anticipated discharge: Home Within: Other - Plan Summary Plan Summary: Continues to current medication
--- NOTE | 2018-08-02 09:34 | RADIOLOGY REPORT (SQ) ---
EXAM DESCRIPTION: CHEST SINGLE VIEW COMPLETED DATE/TIME: 08/02/2018 9:26 am REASON FOR STUDY: CHEST TUBE PLACEMENT COMPARISON: Chest films 07/30/2018, 08/01/2018 EXAM PARAMETERS: NUMBER OF VIEWS: One view. TECHNIQUE: Single frontal radiographic view of the chest acquired. RADIATION DOSE: NA LIMITATIONS: None. FINDINGS: LUNGS AND PLEURA: Left lateral costophrenic pleural space pigtail catheter is unchanged. Minimal bandlike atelectasis at the left lung base. No residual pleural effusion or pneumothorax. Right hemithorax unremarkable MEDIASTINUM AND HILAR STRUCTURES: No masses. Contour normal. HEART AND VASCULAR STRUCTURES: Stable mild cardiomegaly BONES: No acute findings. HARDWARE: Left lateral costophrenic sulcus pleural space pigtail catheter OTHER: No other significant finding. IMPRESSION: Left basilar pigtail catheter in place, no pleural effusion or pneumothorax. Minimal ba ndlike atelectasis left lung base. TECHNICAL DOCUMENTATION: JOB ID: [id number] [employer]- All Rights Reserved Reading location - IP/workstation name: [email or web address]
[2018-08-02] MEDS: AMLODIPINE BESYLATE 2.5 MG TABLET PO SCH ×2 (09:55→21:58)
[2018-08-02] MEDS: LOSARTAN POTASSIUM 50 MG TABLET PO SCH (09:56)
[2018-08-02] MEDS ORDERED: LEVOFLOXACIN 500 MG TABLET PO SCH (10:00)
[2018-08-02] MEDS: INSULIN LISPRO 100 UNIT/ML 3 ML VIAL SUBCUT SCH ×4 (10:21→21:54)
[2018-08-02] MEDS: ALLOPURINOL 100 MG TABLET PO SCH (10:22)
[2018-08-02] MEDS: INSULIN GLARGINE,HUM.REC.ANLOG 300 UNIT/3 ML INSULN.PEN SUBCUT SCH ×2 (10:22→21:53)
[2018-08-02] MEDS: LEVOFLOXACIN 250 MG TABLET PO SCH (10:22)
[2018-08-02] MEDS: ASPIRIN 81 MG TABLET, CHEWABLE PO SCH (10:22)
[2018-08-02] MEDS: TAMSULOSIN HCL 0.4 MG CAP.SR.24H PO SCH (10:22)
[2018-08-02] MEDS: CEFEPIME HCL 2 GM in DEXTROSE 5%-WATER 50 ML IV SCH (10:23)
[2018-08-02] MEDS: FUROSEMIDE INJ/PF 40 MG/4 ML SDV IV SCH ×2 (10:23→21:53)
--- NOTE | 2018-08-02 11:46 | PDOC PROGRESS REPORT ---
Subjective Progress Note for:: 08/02/18 Reason For Visit: Seen patient this morning. He is lying comfortably in bed flat. He denies any history of chest pain or shortness of breath or fever or chills. He underwent a chest tube placement yesterday. Labs and medications were reviewed. His creatinine is slightly better than what what it was yesterday. Physical Exam Vital Signs: Temp Pulse Resp BP Pulse Ox 97.6 F 63 16 139/48 H 99 08/02/18 07:32 08/02/18 07:32 08/02/18 07:32 08/02/18 07:32 08/02/18 07:32 Intake & Output 08/01/18 08/02/18 08/03/18 06:59 06:59 06:59 Intake Total 1557 1055 50 Output Total 2075 1175 Balance -518 -120 50 Weight 97.4 kg 97.8 kg General appearance: PRESENT: no acute distress Respiratory exam: PRESENT: clear to auscultation bonifacio. ABSENT: crackles Cardiovascular exam: PRESENT: +S1, +S2, systolic murmur GI/Abdominal exam: PRESENT: normal bowel sounds, soft. ABSENT: organomegaly, tenderness Extremities exam: PRESENT: pedal edema - Trace plus. Results Laboratory Results: 07/31/18 05:50 08/02/18 04:17 08/02/18 04:17 Sodium 142.3 Potassium 4.8 Chloride 110 H Carbon Dioxide 22 Anion Gap 10 BUN 67 H Creatinine 4.73 H Est GFR ( Amer) 14 L Est GFR (Non-Af Amer) 12 L Glucose 147 H Calcium 8.8 Impressions: Chest Ultrasound 07/30/18 00:00 IMPRESSION: Re-accumulation of a moderate size left pleural effusion Thoracentesis Ultrasound 08/01/18 06:59 IMPRESSION: SUCCESSFUL PLACEMENT OF A LEFT SIDED CHEST TUBE USING ULTRASOUND GUIDANCE. Chest X-Ray 08/02/18 00:00 IMPRESSION: Left basilar pigtail catheter in place, no pleural effusion or pneumothorax. Minimal bandlike atelectasis left lung base. Assessment & Plan - Diagnosis (1) Pleural effusion Is this a current diagnosis for this admission?: Yes Plan: Reaccumulation of left-sided pleural effusion. Now has had a left chest tube placed. As per Dr. Taylor and Dr. Faulkner. (2) Acute kidney injury superimposed on chronic kidney disease Is this a current diagnosis for this admission?: Yes Plan: His base creatinine around 3.5 and today is at 4.7 as to yesterday of 5.0. He is nonoliguric. Continue present lines of management. No acute indications for initiation of renal replacements.We will continue to monitor.He will be followed as an outpatient in 2 weeks time with labs at which point further decisions will be made whether he needs to be initiate renal replacements especially if renal functions are getting worse and he is symptomatic. (3) Chronic kidney disease, stage 3 Is this a current diagnosis for this admission?: Yes Plan: He has had underlying CKD stage III/IV with a base creatinine of around 3.5. Currently acute on chronic injury. I will continue on IV diuresis while patient is in the hospital. 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 His effusions could have been a combination of his CHF/Hypoalbuminemia/ kidney failure/possible early infection in his lungs. (5) Type 2 diabetes mellitus Qualifiers: Diabetes mellitus terminal gauger supervisor insulin use: unspecified terminal gauger supervisor insulin use status Diabetes mellitus complication status: with unspecified complications Qualified Code(s): E11.8 - Type 2 diabetes mellitus with unspecified complications Is this a current diagnosis for this admission?: Yes Plan: Advised tight diabetic control. (6) Hypertension Qualifiers: Hypertension type: essential hypertension Qualified Code(s): I10 - Essential (primary) hypertension Is this a current diagnosis for this admission?: Yes Plan: Controlled. Monitor
--- NOTE | 2018-08-02 14:53 | PDOC PROGRESS REPORT ---
Subjective Progress Note for:: 07/31/18 Subjective:: Patient without complaints Reason For Visit: L SIDE PLEURAL EFFUSION Physical Exam Vital Signs: Temp Pulse Resp BP Pulse Ox 97.9 F 59 L 16 145/56 H 96 08/02/18 11:23 08/02/18 11:23 08/02/18 11:23 08/02/18 11:23 08/02/18 11:23 Intake & Output 08/01/18 08/02/18 08/03/18 06:59 06:59 06:59 Intake Total 1557 1055 671 Output Total 2075 1175 575 Balance -518 -120 96 Weight 97.4 kg 97.8 kg General appearance: PRESENT: no acute distress, cooperative, disheveled, obese Head exam: PRESENT: atraumatic, normocephalic Eye exam: PRESENT: conjunctiva pale. ABSENT: nystagmus Mouth exam: PRESENT: dry mucosa, neck supple, tongue midline Neck exam: ABSENT: carotid bruit, JVD, lymphadenopathy, thyromegaly, tracheal d eviation, tracheostomy Respiratory exam: PRESENT: decreased breath sounds, prolonged expiratory phas, rales, rhonchi, unlabored. ABSENT: retraction, stridor Cardiovascular exam: PRESENT: RRR, +S1, +S2 Pulses: PRESENT: normal radial pulses GI/Abdominal exam: PRESENT: soft. ABSENT: tenderness Gentrourinary exam: PRESENT: indwelling catheter Musculoskeletal exam: ABSENT: deformity, dislocation Neurological exam: PRESENT: awake Psychiatric exam: PRESENT: appropriate affect Skin exam: PRESENT: dry, warm Results Laboratory Results: 07/31/18 05:50 08/02/18 04:17 08/02/18 04:17 Sodium 142.3 Potassium 4.8 Chloride 110 H Carbon Dioxide 22 Anion Gap 10 BUN 67 H Creatinine 4.73 H Est GFR ( Amer) 14 L Est GFR (Non-Af Amer) 12 L Glucose 147 H Calcium 8.8 Impressions: Chest Ultrasound 07/30/18 00:00 IMPRESSION: Re-accumulation of a moderate size left pleural effusion Thoracentesis Ultrasound 08/01/18 06:59 IMPRESSION: SUCCESSFUL PLACEMENT OF A LEFT SIDED CHEST TUBE USING ULTRASOUND GUIDANCE. Chest X-Ray 08/02/18 00:00 IMPRESSION: Left basilar pigtail catheter in place, no pleural effusion or pneumothorax. Minimal bandlike atelectasis left lung base. Assessment & Plan - Diagnosis (1) Chronic kidney disease, stage 3 Is this a current diagnosis for this admission?: Yes Plan: Labs- All tests 24 hr 07/26/18 07/27/18 07/28/18 10:10 10:27 04:47 BUN 55 H 56 H 62 H Creatinine 4.16 H 4.26 H 4.13 H As per nephrology (2) Congestive heart failure with left ventricular diastolic dysfunction Qualifiers: Congestive heart failure chronicity: acute on chronic Qualified Code(s): I50.33 - Acute on chronic diastolic (congestive) heart failure Is this a current diagnosis for this admission?: Yes Plan: Related to volume overload (3) Hypertension Qualifiers: Hypertension type: essential hypertension Qualified Code(s): I10 - Essential (primary) hypertension Is this a current diagnosis for this admission?: Yes Plan: Stable at this time (4) Pleural effusion Is this a current diagnosis for this admission?: Yes Plan: Labs- All tests 24 hr 07/26/18 07/26/18 10:10 15:08 Total Protein 5.8 L Fluid Type PLEURAL Fluid Color LIGHT YELLOW Fluid Appearance HAZY Fluid Viscosity LIQUID Fluid WBC 728 Fluid RBC 4575 Fluid Seg Neutrophils 30 Fluid Lymphocytes 46 Fluid Monocytes 6 Fluid Eosinophils 18 Lab testing from pleural fluid is still pending at this time suspect this to be transudate of effusion due to congestive heart failure and/or chronic renal failure nonetheless he has some left-sided axis
[2018-08-02] MEDS: ATORVASTATIN CALCIUM 40 MG TABLET PO SCH (21:55)
[2018-08-03] MEDS: LEVOTHYROXINE SODIUM 0.1 MG TABLET PO SCH (05:20)
[2018-08-03] MEDS: LANSOPRAZOLE 15 MG TAB.RAP.DR PO SCH (05:20)
[2018-08-03] MEDS: CARVEDILOL 12.5 MG TABLET PO SCH ×3 (05:24→21:30)
[2018-08-03] MEDS: HYDRALAZINE HCL 25 MG TABLET PO SCH ×3 (05:24→21:30)
[2018-08-03 07:34] LABS: ABSOLUTE BASOPHILS # (AUTO) 0.1 10^3/uL (0.0-0.2); ABSOLUTE EOSINOPHILS # (AUTO) 0.4 10^3/uL (0.0-0.6); ABSOLUTE LYMPHOCYTES (AUTO) 1.3 10^3/uL (0.5-4.7); ABSOLUTE MONOCYTES (AUTO) 0.7 10^3/uL (0.1-1.4); ABSOLUTE NEUT (AUTO) 3.8 10^3/uL (1.7-8.2); ABSOLUTE RETICS # 0.044 10^6/uL (0.028-0.122); BASOPHILS % (AUTO) 0.9 % (0-2); EOSINOPHILS % (AUTO) 6.4 % (0-6); HEMATOCRIT 30.4 % (37.9-51.0); HEMOGLOBIN 10.2 g/dL (13.5-17.0); LYMPHOCYTES % (AUTO) 20.5 % (13-45); MEAN CORPUSCULAR HEMOGLOBIN 30.4 pg (27.0-33.4); MEAN CORPUSCULAR HGB CONC 33.6 g/dL (32.0-36.0); MEAN CORPUSCULAR VOLUME 90 fl (80-97); MONOCYTES % (AUTO) 10.7 % (3-13); PLATELET COUNT 203 10^3/uL (150-450); RED BLOOD COUNT 3.37 10^6/uL (4.35-5.55); RED CELL DISTRIBUTION WIDTH 16.1 % (11.5-14.0); RETICULOCYTE COUNT (AUTO) 1.31 % (0.66-2.85); SEGMENTED NEUTROPHILS % (AUTO) 61.5 % (42-78); TOTAL CELLS COUNTED % (AUTO) 100 %; WHITE BLOOD COUNT 6.2 10^3/uL (4.0-10.5)
[2018-08-03 07:47] LABS: ANION GAP 8 (5-19); BLOOD UREA NITROGEN 64 mg/dL (7-20); CALCIUM 8.9 mg/dL (8.4-10.2); CARBON DIOXIDE 24 mmol/L (22-30); CHLORIDE 109 mmol/L (98-107); GLUCOSE 123 mg/dL (75-110); IRON(TIBC) 39.6 ug/dL (49-181); POTASSIUM 4.9 mmol/L (3.6-5.0); SODIUM 141.2 mmol/L (137-145)
[2018-08-03] MEDS: INSULIN LISPRO 100 UNIT/ML 3 ML VIAL SUBCUT SCH ×4 (08:41→21:30)
[2018-08-03 08:53] LABS: FOLATE 9.12 ng/mL (>2.76)
--- NOTE | 2018-08-03 09:35 | PDOC PROGRESS REPORT ---
Subjective Progress Note for:: 08/03/18 Subjective:: Patient is currently doing well Patient's chest tube draining very minimal fluid No chest pain no short of breath Reason For Visit: L SIDE PLEURAL EFFUSION Physical Exam Vital Signs: Temp Pulse Resp BP Pulse Ox 98.0 F 60 16 158/54 H 99 08/03/18 08:19 08/03/18 08:19 08/03/18 08:19 08/03/18 08:19 08/03/18 08:19 Intake & Output 08/02/18 08/03/18 08/04/18 06:59 06:59 06:59 Intake Total 1055 1612 Output Total 1175 3050 Balance -120 -1438 Weight 97.8 kg 101 kg General appearance: PRESENT: no acute distress, well-developed, well-nourished Head exam: PRESENT: atraumatic, normocephalic Eye exam: PRESENT: conjunctiva pink, EOMI, PERRLA. ABSENT: scleral icterus Ear exam: PRESENT: normal external ear exam Mouth exam: PRESENT: moist, tongue midline Neck exam: PRESENT: full ROM. ABSENT: carotid bruit, JVD, lymphadenopathy, thyromegaly Respiratory exam: PRESENT: clear to auscultation bonifacio Additional comments: Left sided chest tube is present Cardiovascular exam: PRESENT: RRR. ABSENT: diastolic murmur, rubs, systolic murmur Pulses: PRESENT: normal dorsalis pedis pul, +2 pedal pulses bilateral Vascular exam: PRESENT: normal capillary refill GI/Abdominal exam: PRESENT: normal bowel sounds, soft. ABSENT: distended, guarding, mass, organolmegaly, rebound, tenderness Rectal exam: PRESENT: deferred Neurological exam: PRESENT: alert, awake, oriented to person, oriented to place, oriented to time, oriented to situation, CN II-XII grossly intact. ABSENT: motor sensory deficit Psychiatric exam: PRESENT: appropriate affect, normal mood. ABSENT: homicidal ideation, suicidal ideation Skin exam: PRESENT: dry, intact, warm. ABSENT: cyanosis, rash Results Laboratory Results: 08/03/18 06:44 08/03/18 06:44 08/03/18 08/03/18 06:44 06:44 WBC 6.2 RBC 3.37 L Hgb 10.2 L Hct 30.4 L MCV 90 MCH 30.4 MCHC 33.6 RDW 16.1 H Plt Count 203 Seg Neutrophils % 61.5 Lymphocytes % 20.5 Monocytes % 10.7 Eosinophils % 6.4 H Basophils % 0.9 Absolute Neutrophils 3.8 Absolute Lymphocytes 1.3 Absolute Monocytes 0.7 Absolute Eosinophils 0.4 Absolute Basophils 0.1 Retic Count (auto) 1.31 Absolute Retic 0.044 Sodium 141.2 Potassium 4.9 Chloride 109 H Carbon Dioxide 24 Anion Gap 8 BUN 64 H Creatinine 4.52 H Est GFR ( Amer) 15 L Est GFR (Non-Af Amer) 12 L Glucose 123 H Calcium 8.9 Iron 39.6 L TIBC 196 L % Saturation 20 Ferritin 350.00 Vitamin B12 249.0 Folate 9.12 Impressions: Chest Ultrasound 07/30/18 00:00 IMPRESSION: Re-accumulation of a moderate size left pleural effusion Thoracentesis Ultrasound 08/01/18 06:59 IMPRESSION: SUCCESSFUL PLACEMENT OF A LEFT SIDED CHEST TUBE USING ULTRASOUND GUIDANCE. Chest X-Ray 08/02/18 00:00 IMPRESSION: Left basilar pigtail catheter in place, no pleural effusion or pneumothorax. Minimal bandlike atelectasis left lung base. Assessment & Plan - Diagnosis (1) Pleural effusion Is this a current diagnosis for this admission?: Yes Plan: Status post chest tube placement (2) Acute renal failure Qualifiers: Acute renal failure type: unspecified Qualified Code(s): N17.9 - Acute kidney failure, unspecified Is this a current diagnosis for this admission?: Yes Plan: Currently all stable (3) Hypertension Qualifiers: Hypertension type: essential hypertension Qualified Code(s): I10 - Essential (primary) hypertension Is this a current diagnosis for this admission?: Yes Plan: His current medication (4) Chronic kidney disease Qualifiers: Chronic kidney disease stage: stage 3 (moderate) Qualified Code(s): N18.3 - Chronic kidney disease, stage 3 (moderate) Is this a current diagnosis for this admission?: Yes (5) Type 2 diabetes mellitus 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 Diabetes mellitus complication status: with unspecified complications Qualified Code(s): E11.8 - Type 2 diabetes mellitus with unspecified complications Is this a current diagnosis for this admission?: Yes Plan: Continues to current insulin and sliding scale (6) Hyperlipemia Qualifiers: Hyperlipidemia type: unspecified Qualified Code(s): E78.5 - Hyperlipidemia, unspecified Is this a current diagnosis for this admission?: Yes (7) Coronary artery disease Qualifiers: Coronary Disease-Associated Artery/Lesion type: unspecified vessel or lesion type Associated angina: without angina Is this a current diagnosis for this admission?: Yes Plan: Patient's recent cardiology workup is stable (8) Congestive heart failure Qualifiers: Heart failure type: diastolic Heart failure chronicity: chronic Qualified Code(s): I50.32 - Chronic diastolic (congestive) heart failure Is this a current diagnosis for this admission?: Yes Plan: Into the Dr. Arceo patient's recent echocardiogram with a normal EF - Time Time Spent with patient: 15-24 minutes Medications reviewed and adjusted accordingly: Yes Anticipated discharge: Home Within: Other - Plan Summary Plan Summary: Plan to continues to current medications Patient is going to stay in a week and Follow with the pulmonary Hopefully discharge in the Monday for remains stable
[2018-08-03] MEDS: ALLOPURINOL 100 MG TABLET PO SCH (09:55)
[2018-08-03] MEDS: TAMSULOSIN HCL 0.4 MG CAP.SR.24H PO SCH (09:56)
[2018-08-03] MEDS: LOSARTAN POTASSIUM 50 MG TABLET PO SCH (09:56)
[2018-08-03] MEDS: ASPIRIN 81 MG TABLET, CHEWABLE PO SCH (09:56)
[2018-08-03] MEDS: FUROSEMIDE INJ/PF 40 MG/4 ML SDV IV SCH ×2 (10:00→21:31)
[2018-08-03] MEDS: INSULIN GLARGINE,HUM.REC.ANLOG 300 UNIT/3 ML INSULN.PEN SUBCUT SCH ×2 (10:02→21:31)
[2018-08-03] MEDS: AMLODIPINE BESYLATE 2.5 MG TABLET PO SCH ×2 (10:04→21:30)
[2018-08-03] MEDS: LEVOFLOXACIN 250 MG TABLET PO SCH (10:04)
[2018-08-03] MEDS: CALCITRIOL 0.25 MCG CAPSULE PO SCH (10:05)
[2018-08-03] MEDS: CEFEPIME HCL 2 GM in DEXTROSE 5%-WATER 50 ML IV SCH (10:06)
[2018-08-03] MEDS: ATORVASTATIN CALCIUM 40 MG TABLET PO SCH (21:30)
[2018-08-04] MEDS: HYDRALAZINE HCL 25 MG TABLET PO SCH ×3 (05:45→22:31)
[2018-08-04] MEDS: LANSOPRAZOLE 15 MG TAB.RAP.DR PO SCH (05:47)
[2018-08-04] MEDS: LEVOTHYROXINE SODIUM 0.1 MG TABLET PO SCH (05:47)
[2018-08-04 08:36] LABS: ANION GAP 9 (5-19); BLOOD UREA NITROGEN 66 mg/dL (7-20); CALCIUM 8.8 mg/dL (8.4-10.2); CARBON DIOXIDE 23 mmol/L (22-30); CHLORIDE 108 mmol/L (98-107); GLUCOSE 165 mg/dL (75-110); SODIUM 140.2 mmol/L (137-145)
[2018-08-04] MEDS: CEFEPIME HCL 2 GM in DEXTROSE 5%-WATER 50 ML IV SCH (10:25)
[2018-08-04] MEDS: FUROSEMIDE INJ/PF 40 MG/4 ML SDV IV SCH ×2 (10:26→22:26)
[2018-08-04] MEDS: INSULIN GLARGINE,HUM.REC.ANLOG 300 UNIT/3 ML INSULN.PEN SUBCUT SCH ×2 (10:29→22:27)
[2018-08-04] MEDS: CARVEDILOL 12.5 MG TABLET PO SCH ×2 (10:31→22:25)
[2018-08-04] MEDS: AMLODIPINE BESYLATE 2.5 MG TABLET PO SCH ×2 (10:31→22:25)
[2018-08-04] MEDS: ASPIRIN 81 MG TABLET, CHEWABLE PO SCH (10:31)
[2018-08-04] MEDS: LOSARTAN POTASSIUM 50 MG TABLET PO SCH (10:31)
[2018-08-04] MEDS: TAMSULOSIN HCL 0.4 MG CAP.SR.24H PO SCH (10:31)
[2018-08-04] MEDS: ALLOPURINOL 100 MG TABLET PO SCH (10:31)
[2018-08-04] MEDS: INSULIN LISPRO 100 UNIT/ML 3 ML VIAL SUBCUT SCH ×4 (10:32→22:26)
[2018-08-04] MEDS: LEVOFLOXACIN 250 MG TABLET PO SCH (10:32)
--- NOTE | 2018-08-04 19:20 | PDOC PROGRESS REPORT ---
Subjective Progress Note for:: 08/04/18 Subjective:: Patient seen by the bedside complain of pain on the right side of his body, he has a chest tube on the left side of his chest Reason For Visit: L SIDE PLEURAL EFFUSION Physical Exam Vital Signs: Temp Pulse Resp BP Pulse Ox 97.9 F 62 17 142/44 H 100 08/04/18 16:05 08/04/18 16:05 08/04/18 16:05 08/04/18 16:05 08/04/18 16:05 Intake & Output 08/03/18 08/04/18 08/05/18 06:59 06:59 06:59 Intake Total 0959 142 2780 Output Total 3050 1400 200 Balance -1438 -717 856 Weight 101 kg 94.5 kg General appearance: PRESENT: no acute distress Eye exam: PRESENT: PERRLA Respiratory exam: PRESENT: clear to auscultation bonifacio Cardiovascular exam: PRESENT: +S1, +S2 GI/Abdominal exam: PRESENT: soft Neurological exam: PRESENT: alert Results Laboratory Results: 08/03/18 06:44 08/04/18 07:14 08/04/18 07:14 Sodium 140.2 Potassium 5.0 Chloride 108 H Carbon Dioxide 23 Anion Gap 9 BUN 66 H Creatinine 4.82 H Est GFR ( Amer) 14 L Est GFR (Non-Af Amer) 12 L Glucose 165 H Calcium 8.8 Impressions: Chest Ultrasound 07/30/18 00:00 IMPRESSION: Re-accumulation of a moderate size left pleural effusion Thoracentesis Ultrasound 08/01/18 06:59 IMPRESSION: SUCCESSFUL PLACEMENT OF A LEFT SIDED CHEST TUBE USING ULTRASOUND GUIDANCE. Chest X-Ray 08/02/18 00:00 IMPRESSION: Left basilar pigtail catheter in place, no pleural effusion or pneumothorax. Minimal bandlike atelectasis left lung base. 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: Diabetes mellitus shelter insulin use: unspecified shelter insulin use status Diabetes mellitus complication status: with unspecified complications Qualified Code(s): E11.8 - Type 2 diabetes mellitus with unspecified complications Is this a current diagnosis for this admission?: Yes (3) Acute kidney injury superimposed on chronic kidney disease Is this a current diagnosis for this admission?: Yes (4) Chronic kidney disease, stage 3 Is this a current diagnosis for this admission?: Yes (5) Congestive heart failure with left ventricular diastolic dysfunction Qualifiers: Congestive heart failure chronicity: acute on chronic Qualified Code(s): I50.33 - Acute on chronic diastolic (congestive) heart failure Is this a current diagnosis for this admission?: Yes - Plan Summary Plan Summary: Continue treatment
[2018-08-04] MEDS: ATORVASTATIN CALCIUM 40 MG TABLET PO SCH (22:26)
[2018-08-05] MEDS: HYDRALAZINE HCL 25 MG TABLET PO SCH ×3 (06:01→21:57)
[2018-08-05] MEDS: LANSOPRAZOLE 15 MG TAB.RAP.DR PO SCH (06:02)
[2018-08-05] MEDS: LEVOTHYROXINE SODIUM 0.1 MG TABLET PO SCH (06:02)
[2018-08-05 07:08] LABS: ANION GAP 9 (5-19); BLOOD UREA NITROGEN 70 mg/dL (7-20); CALCIUM 8.6 mg/dL (8.4-10.2); CARBON DIOXIDE 23 mmol/L (22-30); CHLORIDE 109 mmol/L (98-107); GLUCOSE 121 mg/dL (75-110); POTASSIUM 4.7 mmol/L (3.6-5.0); SODIUM 140.8 mmol/L (137-145)
[2018-08-05] MEDS: INSULIN LISPRO 100 UNIT/ML 3 ML VIAL SUBCUT SCH ×4 (09:33→22:00)
[2018-08-05] MEDS: FUROSEMIDE INJ/PF 40 MG/4 ML SDV IV SCH ×2 (09:42→21:59)
[2018-08-05] MEDS: LOSARTAN POTASSIUM 50 MG TABLET PO SCH (09:43)
[2018-08-05] MEDS: CARVEDILOL 12.5 MG TABLET PO SCH ×2 (09:44→22:12)
[2018-08-05] MEDS: TAMSULOSIN HCL 0.4 MG CAP.SR.24H PO SCH (09:44)
[2018-08-05] MEDS: ASPIRIN 81 MG TABLET, CHEWABLE PO SCH (09:44)
[2018-08-05] MEDS: INSULIN GLARGINE,HUM.REC.ANLOG 300 UNIT/3 ML INSULN.PEN SUBCUT SCH ×2 (09:44→22:10)
[2018-08-05] MEDS: ACETAMINOPHEN 325 MG TABLET PO PRN (09:44)
[2018-08-05] MEDS: CEFEPIME HCL 2 GM in DEXTROSE 5%-WATER 50 ML IV SCH (09:45)
[2018-08-05] MEDS: ALLOPURINOL 100 MG TABLET PO SCH (09:49)
[2018-08-05] MEDS: AMLODIPINE BESYLATE 2.5 MG TABLET PO SCH ×2 (11:17→21:59)
[2018-08-05] MEDS: LEVOFLOXACIN 250 MG TABLET PO SCH (11:18)
--- NOTE | 2018-08-05 18:06 | PDOC PROGRESS REPORT ---
Subjective Progress Note for:: 08/05/18 Subjective:: Patient seen by the bedside complain of pain on the right side of his body, he has a chest tube on the left side of his chest Reason For Visit: L SIDE PLEURAL EFFUSION Physical Exam Vital Signs: Temp Pulse Resp BP Pulse Ox 98.2 F 59 L 16 128/53 H 95 08/05/18 15:45 08/05/18 15:45 08/05/18 15:45 08/05/18 15:45 08/05/18 15:45 Intake & Output 08/04/18 08/05/18 08/06/18 06:59 06:59 06:59 Intake Total 683 1056 670 Output Total 1540 1010 570 Balance -857 46 100 Weight 94.5 kg 91.7 kg General appearance: PRESENT: no acute distress Eye exam: PRESENT: PERRLA Results Laboratory Results: 08/03/18 06:44 08/05/18 05:48 08/05/18 05:48 Sodium 140.8 Potassium 4.7 Chloride 109 H Carbon Dioxide 23 Anion Gap 9 BUN 70 H Creatinine 4.75 H Est GFR ( Amer) 14 L Est GFR (Non-Af Amer) 12 L Glucose 121 H Calcium 8.6 Impressions: Chest Ultrasound 07/30/18 00:00 IMPRESSION: Re-accumulation of a moderate size left pleural effusion Thoracentesis Ultrasound 08/01/18 06:59 IMPRESSION: SUCCESSFUL PLACEMENT OF A LEFT SIDED CHEST TUBE USING ULTRASOUND GUIDANCE. Chest X-Ray 08/02/18 00:00 IMPRESSION: Left basilar pigtail catheter in place, no pleural effusion or pneumothorax. Minimal bandlike atelectasis left lung base. 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 Diabetes mellitus complication status: with unspecified complications Qualified Code(s): E11.8 - Type 2 diabetes mellitus with unspecified complications Is this a current diagnosis for this admission?: Yes (3) Acute kidney injury superimposed on chronic kidney disease Is this a current diagnosis for this admission?: Yes (4) Chronic kidney disease, stage 3 Is this a current diagnosis for this admission?: Yes (5) Congestive heart failure with left ventricular diastolic dysfunction Qualifiers: Congestive heart failure chronicity: acute on chronic Qualified Code(s): I50.33 - Acute on chronic diastolic (congestive) heart failure Is this a current diagnosis for this admission?: Yes
[2018-08-05] MEDS: ATORVASTATIN CALCIUM 40 MG TABLET PO SCH (21:58)
[2018-08-06] MEDS: HYDRALAZINE HCL 25 MG TABLET PO SCH ×3 (05:31→22:39)
[2018-08-06] MEDS: LANSOPRAZOLE 15 MG TAB.RAP.DR PO SCH (05:31)
[2018-08-06] MEDS: LEVOTHYROXINE SODIUM 0.1 MG TABLET PO SCH (05:32)
--- NOTE | 2018-08-06 08:52 | RADIOLOGY REPORT (SQ) ---
EXAM DESCRIPTION: CHEST 2 VIEWS COMPLETED DATE/TIME: 08/06/2018 8:22 am REASON FOR STUDY: plural effusion COMPARISON: 08/02/2018 EXAM PARAMETERS: NUMBER OF VIEWS: two views TECHNIQUE: Digital Frontal and Lateral radiographic views of the chest acquired. RADIATION DOSE: NA LIMITATIONS: none FINDINGS: LUNGS AND PLEURA: New focal opacity in the left lower lobe, adjacent to the fissure, sinc e the study dated 08/02/2018, may represent pneumonic consolidation and lower loculated effusion. Int erval mild prominence of the interstitial markings in the right lower lung, may represent infiltrate. No pneumothorax. Stable small left pleural effusion. MEDIASTINUM AND HILAR STRUCTURES: No masses or contour abnormalities. HEART AND VASCULAR STRUCTURES: Some decrease in heart size since the prior study. No evidence for fa ilure. BONES: No acute findings. HARDWARE: Stable small bore left chest tube. OTHER: No other significant finding. IMPRESSION: 1. Since the previous examination dated 08/02/2018, new focal parenchymal opacity in the left lower lobe, adjacent to the fissure, may represent pneumonia or loculated fluid in the fissure. 2. The right infrahilar markings are somewhat prominent, may be on the basis of infiltrate. 3. Stable small left pleural effusion. TECHNICAL DOCUMENTATION: JOB ID: [id number] [email or web address]- All Rights Reserved Reading location - IP/workstation name: [email or web address]
[2018-08-06] MEDS: INSULIN LISPRO 100 UNIT/ML 3 ML VIAL SUBCUT SCH ×4 (09:35→22:37)
[2018-08-06] MEDS: CARVEDILOL 12.5 MG TABLET PO SCH ×2 (09:42→22:38)
[2018-08-06] MEDS: LOSARTAN POTASSIUM 50 MG TABLET PO SCH (09:43)
[2018-08-06] MEDS: ASPIRIN 81 MG TABLET, CHEWABLE PO SCH (09:43)
[2018-08-06] MEDS: TAMSULOSIN HCL 0.4 MG CAP.SR.24H PO SCH (09:43)
[2018-08-06] MEDS: LEVOFLOXACIN 250 MG TABLET PO SCH (09:43)
[2018-08-06] MEDS: ALLOPURINOL 100 MG TABLET PO SCH (09:43)
[2018-08-06] MEDS: CALCITRIOL 0.25 MCG CAPSULE PO SCH (09:43)
[2018-08-06] MEDS: FUROSEMIDE INJ/PF 40 MG/4 ML SDV IV SCH ×2 (09:44→22:39)
[2018-08-06] MEDS: AMLODIPINE BESYLATE 2.5 MG TABLET PO SCH ×2 (09:44→23:23)
[2018-08-06] MEDS: INSULIN GLARGINE,HUM.REC.ANLOG 300 UNIT/3 ML INSULN.PEN SUBCUT SCH ×2 (09:44→23:25)
[2018-08-06] MEDS: CEFEPIME HCL 2 GM in DEXTROSE 5%-WATER 50 ML IV SCH (10:00)
--- NOTE | 2018-08-06 10:55 | PDOC PROGRESS REPORT ---
Subjective Progress Note for:: 08/06/18 Subjective:: Patient is currently doing same Patient does complain of some right-sided discomfort with chest site Patient's chest x-ray is consistent with the infiltrate Patient is currently on IV antibiotic Discussed with Dr. Taylor about the new chest x-ray changes Reason For Visit: L SIDE PLEURAL EFFUSION Physical Exam Vital Signs: Temp Pulse Resp BP Pulse Ox 98.0 F 56 L 17 138/46 H 98 08/06/18 07:57 08/06/18 07:57 08/06/18 07:57 08/06/18 07:57 08/06/18 07:57 Intake & Output 08/05/18 08/06/18 08/07/18 06:59 06:59 06:59 Intake Total 1056 670 Output Total 1010 1820 Balance 46 -1150 Weight 91.7 kg 91.3 kg General appearance: PRESENT: no acute distress, well-developed, well-nourished Head exam: PRESENT: atraumatic, normocephalic Eye exam: PRESENT: conjunctiva pink, EOMI, PERRLA. ABSENT: scleral icterus Ear exam: PRESENT: normal external ear exam Mouth exam: PRESENT: moist, tongue midline Neck exam: PRESENT: full ROM. ABSENT: carotid bruit, JVD, lymphadenopathy, thyromegaly Respiratory exam: PRESENT: clear to auscultation bonifacio Cardiovascular exam: PRESENT: RRR. ABSENT: diastolic murmur, rubs, systolic murmur Vascular exam: PRESENT: normal capillary refill GI/Abdominal exam: PRESENT: normal bowel sounds, soft. ABSENT: distended, guarding, mass, organolmegaly, rebound, tenderness Rectal exam: PRESENT: deferred Neurological exam: PRESENT: alert, awake, oriented to person, oriented to place, oriented to time, oriented to situation, CN II-XII grossly intact. ABSENT: motor sensory deficit Psychiatric exam: PRESENT: appropriate affect, normal mood. ABSENT: homicidal ideation, suicidal ideation Skin exam: PRESENT: dry, intact, warm. ABSENT: cyanosis, rash Results Laboratory Results: 08/03/18 06:44 08/05/18 05:48 Impressions: Chest Ultrasound 07/30/18 00:00 IMPRESSION: Re-accumulation of a moderate size left pleural effusion Thoracentesis Ultrasound 08/01/18 06:59 IMPRESSION: SUCCESSFUL PLACEMENT OF A LEFT SIDED CHEST TUBE USING ULTRASOUND GUIDANCE. Chest X-Ray 08/06/18 00:00 IMPRESSION: 1. Since the previous examination dated 08/02/2018, new focal parenchymal opacity in the left lower lobe, adjacent to the fissure, may represent pneumonia or loculated fluid in the fissure. 2. The right infrahilar markings are somewhat prominent, may be on the basis of infiltrate. 3. Stable small left pleural effusion. Assessment & Plan - Diagnosis (1) Pleural effusion Is this a current diagnosis for this admission?: Yes Plan: Status post chest tube We will follow with the pulmonary (2) Acute renal failure Qualifiers: Acute renal failure type: unspecified Qualified Code(s): N17.9 - Acute kidney failure, unspecified Is this a current diagnosis for this admission?: Yes Plan: Currently all stable (3) Hypertension Qualifiers: Hypertension type: essential hypertension Qualified Code(s): I10 - Essential (primary) hypertension Is this a current diagnosis for this admission?: Yes Plan: His current medication (4) Chronic kidney disease Qualifiers: Chronic kidney disease stage: stage 3 (moderate) Qualified Code(s): N18.3 - Chronic kidney disease, stage 3 (moderate) Is this a current diagnosis for this admission?: Yes (5) Type 2 diabetes mellitus Qualifiers: 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 [facility] insulin use status Diabetes mellitus complication status: with unspecified complications Qualified Code(s): E11.8 - Type 2 diabetes mellitus with unspecified complications Is this a current diagnosis for this admission?: Yes Plan: Continues to current insulin and sliding scale (6) Hyperlipemia Qualifiers: Hyperlipidemia type: unspecified Qualified Code(s): E78.5 - Hyperlipidemia, unspecified Is this a current diagnosis for this admission?: Yes (7) Coronary artery disease Qualifiers: Coronary Disease-Associated Artery/Lesion type: unspecified vessel or lesion type Associated angina: without angina Is this a current diagnosis for this admission?: Yes Plan: Patient's recent cardiology workup is stable (8) Congestive heart failure Qualifiers: Heart failure type: diastolic Heart failure chronicity: chronic Qualified Code(s): I50.32 - Chronic diastolic (congestive) heart failure Is this a current diagnosis for this admission?: Yes Plan: Into the Dr. Arceo patient's recent echocardiogram with a normal EF - Time Time Spent with patient: 15-24 minutes Medications reviewed and adjusted accordingly: Yes Anticipated discharge: Home Within: Other - Plan Summary Plan Summary: Continues to IV antibiotic With the pulmonary
--- NOTE | 2018-08-06 11:50 | PDOC PROGRESS REPORT ---
Subjective Progress Note for:: 08/06/18 Subjective:: Patient is clinically stable. He said he is breathing fine. However his appetite is still decreased. There is not much drainage from the left chest tube for the last 24 hours so the plan today is to clamp it and see if patient will do okay. Otherwise patient does not have any other new complaints. Reason For Visit: L SIDE PLEURAL EFFUSION Physical Exam Vital Signs: Temp Pulse Resp BP Pulse Ox 98.0 F 56 L 17 138/46 H 98 08/06/18 07:57 08/06/18 07:57 08/06/18 07:57 08/06/18 07:57 08/06/18 07:57 Intake & Output 08/05/18 08/06/18 08/07/18 06:59 06:59 06:59 Intake Total 1056 670 Output Total 1010 1820 Balance 46 -1150 Weight 91.7 kg 91.3 kg Exam: General appearance: PRESENT: no acute distress, cooperative, well-developed, well-nourished Head exam: PRESENT: atraumatic, normocephalic Eye exam: PRESENT: conjunctiva pink, PERRLA. ABSENT: scleral icterus Neck exam: ABSENT: JVD Respiratory exam: PRESENT: Diminished breath sounds. ABSENT: crackles, rales, rhonchi, unlabored, wheezes Cardiovascular exam: PRESENT: Regular rate rhythm -+S1, +S2. ABSENT: diastolic murmur, systolic murmur GI/Abdominal exam: PRESENT: normal bowel sounds, soft. ABSENT: guarding, mass, tenderness Extremities exam: ABSENT: No edema Neurological exam: PRESENT: alert, awake, oriented to person, place and time. Skin exam: PRESENT: dry, warm, Cardiovascular exam: PRESENT: +S1, +S2, systolic murmur GI/Abdominal exam: PRESENT: normal bowel sounds, soft. ABSENT: organomegaly, tenderness Results Laboratory Results: 08/03/18 06:44 08/05/18 05:48 Impressions: Chest Ultrasound 07/30/18 00:00 IMPRESSION: Re-accumulation of a moderate size left pleural effusion Thoracentesis Ultrasound 08/01/18 06:59 IMPRESSION: SUCCESSFUL PLACEMENT OF A LEFT SIDED CHEST TUBE USING ULTRASOUND GUIDANCE. Chest X-Ray 08/06/18 00:00 IMPRESSION: 1. Since the previous examination dated 08/02/2018, new focal parenchymal opacity in the left lower lobe, adjacent to the fissure, may represent pneumonia or loculated fluid in the fissure. 2. The right infrahilar markings are somewhat prominent, may be on the basis of infiltrate. 3. Stable small left pleural effusion. Assessment & Plan - Diagnosis (1) Acute kidney injury superimposed on chronic kidney disease Is this a current diagnosis for this admission?: Yes Plan: Kidney function is currently stable. Patient at maintenance IV Lasix at 20 mg IV every 12 hours. No need for any renal replacement therapy at this point. Continue same management. (2) Chronic kidney disease, stage 3 Is this a current diagnosis for this admission?: Yes Plan: Stable kidney function as above. (3) Congestive heart failure with left ventricular diastolic dysfunction Qualifiers: Congestive heart failure chronicity: acute on chronic Qualified Code(s): I50.33 - Acute on chronic diastolic (congestive) heart failure Is this a current diagnosis for this admission?: Yes (4) Pleural effusion Is this a current diagnosis for this admission?: Yes Plan: Currently with left chest tube with decrease output. Dr. Taylor of pulmonary following the patient. (5) Hypertension Qualifiers: Hypertension type: essential hypertension Qualified Code(s): I10 - Essential (primary) hypertension Is this a current diagnosis for this admission?: Yes Plan: Fairly controlled. (6) Anemia Qualifiers: Chronic kidney disease stage: stage 3 (moderate) Is this a current diagnosis for this admission?: Yes Plan: Stable. 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
--- NOTE | 2018-08-06 14:08 | PDOC PROGRESS REPORT ---
Subjective Progress Note for:: 08/06/18 Subjective:: Patient without complaints to go home pigtail catheter draining into Pleurovac Reason For Visit: L SIDE PLEURAL EFFUSION Physical Exam Vital Signs: Temp Pulse Resp BP Pulse Ox 98.6 F 59 L 24 H 121/35 L 96 08/06/18 11:24 08/06/18 11:24 08/06/18 11:24 08/06/18 11:24 08/06/18 11:24 Intake & Output 08/05/18 08/06/18 08/07/18 06:59 06:59 06:59 Intake Total 1056 670 877 Output Total 1010 1820 450 Balance 46 -1150 427 Weight 91.7 kg 91.3 kg General appearance: PRESENT: no acute distress, cooperative, well-developed Head exam: PRESENT: atraumatic, normocephalic Eye exam: PRESENT: conjunctiva pale, EOMI. ABSENT: nystagmus, periorbital swelling Mouth exam: PRESENT: dry mucosa, neck supple, tongue midline Neck exam: ABSENT: carotid bruit, full ROM, JVD, lymphadenopathy, meningismus, tenderness, thyromegaly, tracheal deviation, tracheostomy, other Respiratory exam: PRESENT: decreased breath sounds, prolonged expiratory phas, rhonchi, unlabored. ABSENT: retraction, stridor Cardiovascular exam: PRESENT: RRR, +S1, +S2 Pulses: PRESENT: normal radial pulses GI/Abdominal exam: PRESENT: soft. ABSENT: tenderness Extremities exam: ABSENT: calf tenderness, clubbing, joint swelling, pedal edema Musculoskeletal exam: PRESENT: ambulatory. ABSENT: deformity, dislocation Neurological exam: PRESENT: alert, awake Psychiatric exam: PRESENT: appropriate affect Skin exam: PRESENT: dry, warm Results Laboratory Results: 08/03/18 06:44 08/05/18 05:48 Impressions: Chest Ultrasound 07/30/18 00:00 IMPRESSION: Re-accumulation of a moderate size left pleural effusion Thoracentesis Ultrasound 08/01/18 06:59 IMPRESSION: SUCCESSFUL PLACEMENT OF A LEFT SIDED CHEST TUBE USING ULTRASOUND GUIDANCE. Chest X-Ray 08/06/18 00:00 IMPRESSION: 1. Since the previous examination dated 08/02/2018, new focal parenchymal opacity in the left lower lobe, adjacent to the fissure, may represent pneumonia or loculated fluid in the fissure. 2. The right infrahilar markings are somewhat prominent, may be on the basis of infiltrate. 3. Stable small left pleural effusion. Assessment & Plan - Diagnosis (1) Chronic kidney disease, stage 3 Is this a current diagnosis for this admission?: Yes Plan: Labs- All tests 24 hr 07/26/18 07/27/18 07/28/18 10:10 10:27 04:47 BUN 55 H 56 H 62 H Creatinine 4.16 H 4.26 H 4.13 H As per nephrology (2) Congestive heart failure with left ventricular diastolic dysfunction Qualifiers: Congestive heart failure chronicity: acute on chronic Qualified Code(s): I50.33 - Acute on chronic diastolic (congestive) heart failure Is this a current diagnosis for this admission?: Yes Plan: Related to volume overload (3) Hypertension Qualifiers: Hypertension type: essential hypertension Qualified Code(s): I10 - Essential (primary) hypertension Is this a current diagnosis for this admission?: Yes Plan: Stable at this time (4) Pleural effusion Is this a current diagnosis for this admission?: Yes Plan: Labs- All tests 24 hr 07/26/18 07/26/18 10:10 15:08 Total Protein 5.8 L Fluid Type PLEURAL Fluid Color LIGHT YELLOW Fluid Appearance HAZY Fluid Viscosity LIQUID Fluid WBC 728 Fluid RBC 4575 Fluid Seg Neutrophils 30 Fluid Lymphocytes 46 Fluid Monocytes 6 Fluid Eosinophils 18 Lab testing from pleural fluid is still pending at this time suspect this to be transudate of effusion due to congestive heart failure and/or chronic renal failure nonetheless he has some left-sided axis
[2018-08-06] MEDS: ATORVASTATIN CALCIUM 40 MG TABLET PO SCH (22:38)
[2018-08-06] MEDS ORDERED: INSULIN GLARGINE,HUM.REC.ANLOG 1,000 UNIT/10 ML UNIT SUBCUT ONE (22:53)
[2018-08-07] MEDS: LEVOTHYROXINE SODIUM 0.1 MG TABLET PO SCH (05:18)
[2018-08-07] MEDS: HYDRALAZINE HCL 25 MG TABLET PO SCH ×3 (05:18→22:01)
[2018-08-07] MEDS: LANSOPRAZOLE 15 MG TAB.RAP.DR PO SCH (05:18)
[2018-08-07 07:42] LABS: ABSOLUTE BASOPHILS # (AUTO) 0.1 10^3/uL (0.0-0.2); ABSOLUTE EOSINOPHILS # (AUTO) 0.3 10^3/uL (0.0-0.6); ABSOLUTE LYMPHOCYTES (AUTO) 1.4 10^3/uL (0.5-4.7); ABSOLUTE MONOCYTES (AUTO) 0.8 10^3/uL (0.1-1.4); ABSOLUTE NEUT (AUTO) 4.3 10^3/uL (1.7-8.2); BASOPHILS % (AUTO) 0.9 % (0-2); EOSINOPHILS % (AUTO) 4.5 % (0-6); HEMATOCRIT 28.5 % (37.9-51.0); HEMOGLOBIN 9.7 g/dL (13.5-17.0); LYMPHOCYTES % (AUTO) 20.1 % (13-45); MEAN CORPUSCULAR HEMOGLOBIN 30.8 pg (27.0-33.4); MEAN CORPUSCULAR HGB CONC 34.1 g/dL (32.0-36.0); MEAN CORPUSCULAR VOLUME 90 fl (80-97); MONOCYTES % (AUTO) 11.7 % (3-13); PLATELET COUNT 206 10^3/uL (150-450); RED BLOOD COUNT 3.16 10^6/uL (4.35-5.55); RED CELL DISTRIBUTION WIDTH 15.6 % (11.5-14.0); SEGMENTED NEUTROPHILS % (AUTO) 62.8 % (42-78); TOTAL CELLS COUNTED % (AUTO) 100 %; WHITE BLOOD COUNT 6.9 10^3/uL (4.0-10.5)
[2018-08-07 08:16] LABS: ANION GAP 8 (5-19); BLOOD UREA NITROGEN 78 mg/dL (7-20); CALCIUM 9.1 mg/dL (8.4-10.2); CARBON DIOXIDE 22 mmol/L (22-30); CHLORIDE 110 mmol/L (98-107); GLUCOSE 133 mg/dL (75-110); SODIUM 140.3 mmol/L (137-145)
[2018-08-07] MEDS: INSULIN LISPRO 100 UNIT/ML 3 ML VIAL SUBCUT SCH ×4 (08:16→22:02)
--- NOTE | 2018-08-07 09:21 | PDOC PROGRESS REPORT ---
Subjective Progress Note for:: 08/07/18 Subjective:: Patient is doing fine this morning without any new complaints. His chest tube catheter has been clamped and has very minimal pleural fluid in the tubing since it was clamped. He denies any shortness of breath. He still making adequate amount of consistent urine output. Reason For Visit: L SIDE PLEURAL EFFUSION Physical Exam Vital Signs: Temp Pulse Resp BP Pulse Ox 97.7 F 61 16 132/55 H 99 08/07/18 07:41 08/07/18 07:41 08/07/18 07:41 08/07/18 07:41 08/07/18 07:41 Intake & Output 08/06/18 08/07/18 08/08/18 06:59 06:59 06:59 Intake Total 670 977 Output Total 1820 1500 Balance -1150 -523 Weight 91.3 kg 91 kg Exam: General appearance: PRESENT: no acute distress, cooperative, well-developed, we ll-nourished Head exam: PRESENT: atraumatic, normocephalic Eye exam: PRESENT: conjunctiva pink, PERRLA. ABSENT: scleral icterus Neck exam: ABSENT: JVD Respiratory exam: PRESENT: Normal breath sounds. Breath sounds slightly diminished on the left compared to the right. Chest tube still in place in the left chest. ABSENT: crackles, rales, rhonchi, unlabored, wheezes Cardiovascular exam: PRESENT: Regular rate rhythm -+S1, +S2. ABSENT: diastolic murmur, systolic murmur GI/Abdominal exam: PRESENT: normal bowel sounds, soft. ABSENT: guarding, mass, tenderness Extremities exam: ABSENT: No edema Neurological exam: PRESENT: alert, awake, oriented to person, place and time. Skin exam: PRESENT: dry, warm, Cardiovascular exam: PRESENT: +S1, +S2, systolic murmur GI/Abdominal exam: PRESENT: normal bowel sounds, soft. ABSENT: organomegaly, tenderness Results Laboratory Results: 08/07/18 07:22 08/07/18 07:22 08/07/18 08/07/18 07:22 07:22 WBC 6.9 RBC 3.16 L Hgb 9.7 L Hct 28.5 L MCV 90 MCH 30.8 MCHC 34.1 RDW 15.6 H Plt Count 206 Seg Neutrophils % 62.8 Lymphocytes % 20.1 Monocytes % 11.7 Eosinophils % 4.5 Basophils % 0.9 Absolute Neutrophils 4.3 Absolute Lymphocytes 1.4 Absolute Monocytes 0.8 Absolute Eosinophils 0.3 Absolute Basophils 0.1 Sodium 140.3 Potassium 5.0 Chloride 110 H Carbon Dioxide 22 Anion Gap 8 BUN 78 H Creatinine 4.88 H Est GFR ( Amer) 14 L Est GFR (Non-Af Amer) 11 L Glucose 133 H Calcium 9.1 Impressions: Chest Ultrasound 07/30/18 00:00 IMPRESSION: Re-accumulation of a moderate size left pleural effusion Thoracentesis Ultrasound 08/01/18 06:59 IMPRESSION: SUCCESSFUL PLACEMENT OF A LEFT SIDED CHEST TUBE USING ULTRASOUND GUIDANCE. Chest X-Ray 08/06/18 00:00 IMPRESSION: 1. Since the previous examination dated 08/02/2018, new focal parenchymal opacity in the left lower lobe, adjacent to the fissure, may represent pneumonia or loculated fluid in the fissure. 2. The right infrahilar markings are somewhat prominent, may be on the basis of infiltrate. 3. Stable small left pleural effusion. Assessment & Plan - Diagnosis (1) Acute kidney injury superimposed on chronic kidney disease Is this a current diagnosis for this admission?: Yes Plan: Kidney function is currently stable. In preparation to being discharged home I will change the Lasix to 20 mg p.o. twice daily.. No need for any renal replacement therapy at this point. Continue same management. (2) Chronic kidney disease, stage 3 Is this a current diagnosis for this admission?: Yes Plan: Stable kidney function as above. (3) Congestive heart failure with left ventricular diastolic dysfunction Qualifiers: Congestive heart failure chronicity: acute on chronic Qualified Code(s): I50.33 - Acute on chronic diastolic (congestive) heart failure Is this a current diagnosis for this admission?: Yes (4) Pleural effusion Is this a current diagnosis for this admission?: Yes Plan: Currently with left chest tube with decrease output. Dr. Taylor of pulmonary following the patient. (5) Hypertension Qualifiers: Hypertension type: essential hypertension Qualified Code(s): I10 - Essential (primary) hypertension Is this a current diagnosis for this admission?: Yes Plan: Fairly controlled. (6) Anemia Qualifiers: Chronic kidney disease stage: stage 3 (moderate) Is this a current diagnosis for this admission?: Yes Plan: Stable. (7) Type 2 diabetes mellitus Qualifiers: Diabetes mellitus [facility] insulin use: unspecified manager long term care insulin use [facility] Diabetes mellitus complication status: with unspecified complications Qualified Code(s): E11.8 - Type 2 diabetes mellitus with unspecified co mplications Is this a current diagnosis for this admission?: Yes - Time Time with patient: 15-25 minutes
[2018-08-07] MEDS: CARVEDILOL 12.5 MG TABLET PO SCH ×2 (10:14→22:02)
[2018-08-07] MEDS: AMLODIPINE BESYLATE 2.5 MG TABLET PO SCH ×2 (10:14→22:03)
[2018-08-07] MEDS: LOSARTAN POTASSIUM 50 MG TABLET PO SCH (10:15)
[2018-08-07] MEDS: ALLOPURINOL 100 MG TABLET PO SCH (10:15)
[2018-08-07] MEDS: TAMSULOSIN HCL 0.4 MG CAP.SR.24H PO SCH (10:15)
[2018-08-07] MEDS: ASPIRIN 81 MG TABLET, CHEWABLE PO SCH (10:15)
[2018-08-07] MEDS: LEVOFLOXACIN 250 MG TABLET PO SCH (10:15)
[2018-08-07] MEDS: FUROSEMIDE 20 MG TABLET PO SCH ×2 (10:15→17:45)
[2018-08-07] MEDS: INSULIN GLARGINE,HUM.REC.ANLOG 300 UNIT/3 ML INSULN.PEN SUBCUT SCH ×2 (12:00→22:02)
--- NOTE | 2018-08-07 12:47 | PDOC PROGRESS REPORT ---
Subjective Progress Note for:: 08/07/18 Subjective:: Patient is currently doing fair Patient denied any chest pain to than any shortness of the breath No fever no chills Patient's chest tube is pretty much after claimed not much drain Reason For Visit: L SIDE PLEURAL EFFUSION Physical Exam Vital Signs: Temp Pulse Resp BP Pulse Ox 97.7 F 61 16 132/55 H 99 08/07/18 07:41 08/07/18 07:41 08/07/18 07:41 08/07/18 07:41 08/07/18 07:41 Intake & Output 08/06/18 08/07/18 08/08/18 06:59 06:59 06:59 Intake Total 670 977 Output Total 1820 1500 Balance -1150 -523 Weight 91.3 kg 91 kg General appearance: PRESENT: no acute distress, well-developed, well-nourished Head exam: PRESENT: atraumatic, normocephalic Eye exam: PRESENT: conjunctiva pink, EOMI, PERRLA. ABSENT: scleral icterus Ear exam: PRESENT: normal external ear exam Mouth exam: PRESENT: moist, tongue midline Neck exam: PRESENT: full ROM. ABSENT: carotid bruit, JVD, lymphadenopathy, thyromegaly Respiratory exam: PRESENT: clear to auscultation bonifacio Cardiovascular exam: PRESENT: RRR. ABSENT: diastolic murmur, rubs, systolic murmur Vascular exam: PRESENT: normal capillary refill GI/Abdominal exam: PRESENT: normal bowel sounds, soft. ABSENT: distended, guarding, mass, organolmegaly, rebound, tenderness Rectal exam: PRESENT: deferred Neurological exam: PRESENT: alert, awake, oriented to person, oriented to place, oriented to time, oriented to situation, CN II-XII grossly intact. ABSENT: motor sensory deficit Psychiatric exam: PRESENT: appropriate affect, normal mood. ABSENT: homicidal ideation, suicidal ideation Skin exam: PRESENT: dry, intact, warm. ABSENT: cyanosis, rash Results Laboratory Results: 08/07/18 07:22 08/07/18 07:22 08/07/18 08/07/18 07:22 07:22 WBC 6.9 RBC 3.16 L Hgb 9.7 L Hct 28.5 L MCV 90 MCH 30.8 MCHC 34.1 RDW 15.6 H Plt Count 206 Seg Neutrophils % 62.8 Lymphocytes % 20.1 Monocytes % 11.7 Eosinophils % 4.5 Basophils % 0.9 Absolute Neutrophils 4.3 Absolute Lymphocytes 1.4 Absolute Monocytes 0.8 Absolute Eosinophils 0.3 Absolute Basophils 0.1 Sodium 140.3 Potassium 5.0 Chloride 110 H Carbon Dioxide 22 Anion Gap 8 BUN 78 H Creatinine 4.88 H Est GFR ( Amer) 14 L Est GFR (Non-Af Amer) 11 L Glucose 133 H Calcium 9.1 Impressions: Chest Ultrasound 07/30/18 00:00 IMPRESSION: Re-accumulation of a moderate size left pleural effusion Thoracentesis Ultrasound 08/01/18 06:59 IMPRESSION: SUCCESSFUL PLACEMENT OF A LEFT SIDED CHEST TUBE USING ULTRASOUND GUIDANCE. Chest X-Ray 08/06/18 00:00 IMPRESSION: 1. Since the previous examination dated 08/02/2018, new focal parenchymal opacity in the left lower lobe, adjacent to the fissure, may represent pneumonia or loculated fluid in the fissure. 2. The right infrahilar markings are somewhat prominent, may be on the basis of infiltrate. 3. Stable small left pleural effusion. Assessment & Plan - Diagnosis (1) Pleural effusion Is this a current diagnosis for this admission?: Yes Plan: As per discussed with the pulmonary suggest to remove the tubes repeat the chest x-ray and hopefully discharge (2) Acute renal failure Qualifiers: Acute renal failure type: unspecified Qualified Code(s): N17.9 - Acute kidney failure, unspecified Is this a current diagnosis for this admission?: Yes Plan: Currently all stable (3) Hypertension Qualifiers: Hypertension type: essential hypertension Qualified Code(s): I10 - Essential (primary) hypertension Is this a current diagnosis for this admission?: Yes Plan: His current medication (4) Chronic kidney disease Qualifiers: Chronic kidney disease stage: stage 3 (moderate) Qualified Code(s): N18.3 - Chronic kidney disease, stage 3 (moderate) Is this a current diagnosis for this admission?: Yes (5) Type 2 diabetes mellitus 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 residential insulin use status Diabetes mellitus complication status: with unspecified complications Qualified Code(s): E11.8 - Type 2 diabetes mellitus with unspecified complications Is this a current diagnosis for this admission?: Yes Plan: Continues to current insulin and sliding scale (6) Hyperlipemia Qualifiers: Hyperlipidemia type: unspecified Qualified Code(s): E78.5 - Hyperlipidemia, unspecified Is this a current diagnosis for this admission?: Yes (7) Coronary artery disease Qualifiers: Coronary Disease-Associated Artery/Lesion type: unspecified vessel or lesion type Associated angina: without angina Is this a current diagnosis for this admission?: Yes Plan: Patient's recent cardiology workup is stable (8) Congestive heart failure Qualifiers: Heart failure type: diastolic Heart failure chronicity: chronic Qualified Code(s): I50.32 - Chronic diastolic (congestive) heart failure Is this a current diagnosis for this admission?: Yes Plan: Into the Dr. Arceo patient's recent echocardiogram with a normal EF - Time Time Spent with patient: 15-24 minutes Medications reviewed and adjusted accordingly: Yes Anticipated discharge: Other Within: Other - Plan Summary Plan Summary: Remove the chest tube today
--- NOTE | 2018-08-07 13:49 | RADIOLOGY REPORT (SQ) ---
EXAM DESCRIPTION: CHEST 2 VIEWS COMPLETED DATE/TIME: 08/07/2018 1:38 pm REASON FOR STUDY: CHEST TUBE REMOVAL COMPARISON: Two-view chest 08/06/2018, 0820 hours EXAM PARAMETERS: NUMBER OF VIEWS: two views TECHNIQUE: Digital Frontal and Lateral radiographic views of the chest acquired. RADIATION DOSE: NA LIMITATIONS: none FINDINGS: LUNGS AND PLEURA: Post removal of the left-sided pleural space pigtail catheter. No pneum othorax. Minimal left lateral costophrenic sulcus pleural thickening. Hazy density over the left up per major fissure likely a small amount of retained residual fluid. Right hemithorax unremarkable MEDIASTINUM AND HILAR STRUCTURES: No masses or contour abnormalities. HEART AND VASCULAR STRUCTURES: Heart normal size. No evidence for failure. BONES: No acute findings. HARDWARE: None in the chest. OTHER: No other significant finding. IMPRESSION: No pneumothorax post left chest tube removal TECHNICAL DOCUMENTATION: JOB ID: [id number] [employer]- All Rights Reserved Reading location - IP/workstation name: [email or web address]
--- NOTE | 2018-08-07 15:39 | RADIOLOGY REPORT (SQ) ---
EXAM DESCRIPTION: CHEST 2 VIEWS COMPLETED DATE/TIME: 08/07/2018 3:29 pm REASON FOR STUDY: 2 HOUR POST TUBE REMOVAL COMPARISON: Two-view chest 08/07/2018, 1346 hours EXAM PARAMETERS: NUMBER OF VIEWS: two views TECHNIQUE: Digital Frontal and Lateral radiographic views of the chest acquired. RADIATION DOSE: NA LIMITATIONS: none FINDINGS: LUNGS AND PLEURA: No pneumothorax 2 hours post left chest tube removal. Trace fluid persi sts in the major fissure with minimal left basilar atelectasis. Right hemithorax unremarkable MEDIASTINUM AND HILAR STRUCTURES: No masses or contour abnormalities. HEART AND VASCULAR STRUCTURES: Stable mild cardiomegaly BONES: No acute findings. HARDWARE: None in the chest. OTHER: No other significant finding. IMPRESSION: No pneumothorax 2 hours post chest tube removal TECHNICAL DOCUMENTATION: JOB ID: [id number] [employer]- All Rights Reserved Reading location - IP/workstation name: [email or web address]
[2018-08-07] MEDS: ATORVASTATIN CALCIUM 40 MG TABLET PO SCH (22:03)
[2018-08-08] MEDS: LEVOTHYROXINE SODIUM 0.1 MG TABLET PO SCH (05:11)
[2018-08-08] MEDS: HYDRALAZINE HCL 25 MG TABLET PO SCH ×3 (05:11→22:34)
[2018-08-08] MEDS: LANSOPRAZOLE 15 MG TAB.RAP.DR PO SCH (05:11)
[2018-08-08 05:52] LABS: ANION GAP 10 (5-19); BLOOD UREA NITROGEN 80 mg/dL (7-20); CALCIUM 8.9 mg/dL (8.4-10.2); CARBON DIOXIDE 21 mmol/L (22-30); CHLORIDE 110 mmol/L (98-107); GLUCOSE 107 mg/dL (75-110); POTASSIUM 4.6 mmol/L (3.6-5.0); SODIUM 141.2 mmol/L (137-145)
--- NOTE | 2018-08-08 08:41 | PDOC PROGRESS REPORT ---
Subjective Progress Note for:: 08/08/18 Subjective:: Patient is currently doing fair but this morning patient was diaphoretic because of difficulty in breathing and according to the nursing staff patient's heart rates go up to the 20 and patient was put on the oxygen and now patients feel better Patient is denied any chest pain denied any shortness of the breath Denied any cough pt have a chest tube removed yesterday Reason For Visit: L SIDE PLEURAL EFFUSION Physical Exam Vital Signs: Temp Pulse Resp BP Pulse Ox 97.5 F 70 20 131/50 H 100 08/08/18 07:51 08/08/18 07:51 08/08/18 07:51 08/08/18 07:51 08/08/18 07:51 Intake & Output 08/07/18 08/08/18 08/09/18 06:59 06:59 06:59 Intake Total 1343 225 Output Total 1999 625 Balance -657 -400 Weight 91 kg 91.3 kg General appearance: PRESENT: no acute distress, well-developed, well-nourished Head exam: PRESENT: atraumatic, normocephalic Eye exam: PRESENT: conjunctiva pink, EOMI, PERRLA. ABSENT: scleral icterus Ear exam: PRESENT: normal external ear exam Mouth exam: PRESENT: moist, tongue midline Neck exam: PRESENT: full ROM. ABSENT: carotid bruit, JVD, lymphadenopathy, th yromegaly Respiratory exam: PRESENT: clear to auscultation bonifacio Cardiovascular exam: PRESENT: RRR. ABSENT: diastolic murmur, rubs, systolic murmur Vascular exam: PRESENT: normal capillary refill GI/Abdominal exam: PRESENT: normal bowel sounds, soft. ABSENT: distended, guarding, mass, organolmegaly, rebound, tenderness Rectal exam: PRESENT: deferred Neurological exam: PRESENT: alert, awake, oriented to person, oriented to place, oriented to time, oriented to situation, CN II-XII grossly intact. ABSENT: motor sensory deficit Psychiatric exam: PRESENT: appropriate affect, normal mood. ABSENT: homicidal ideation, suicidal ideation Skin exam: PRESENT: dry, intact, warm. ABSENT: cyanosis, rash Results Laboratory Results: 08/07/18 07:22 08/08/18 04:13 08/08/18 04:13 Sodium 141.2 Potassium 4.6 Chloride 110 H Carbon Dioxide 21 L Anion Gap 10 BUN 80 H Creatinine 4.87 H Est GFR ( Amer) 14 L Est GFR (Non-Af Amer) 11 L Glucose 107 Calcium 8.9 Impressions: Chest Ultrasound 07/30/18 00:00 IMPRESSION: Re-accumulation of a moderate size left pleural effusion Thoracentesis Ultrasound 08/01/18 06:59 IMPRESSION: SUCCESSFUL PLACEMENT OF A LEFT SIDED CHEST TUBE USING ULTRASOUND GUIDANCE. Chest X-Ray 08/07/18 15:30 IMPRESSION: No pneumothorax 2 hours post chest tube removal Assessment & Plan - Diagnosis (1) Pleural effusion Is this a current diagnosis for this admission?: Yes Plan: Status post chest tube removed yesterday was all transudate fluid (2) Acute renal failure Qualifiers: Acute renal failure type: unspecified Qualified Code(s): N17.9 - Acute kidney failure, unspecified Is this a current diagnosis for this admission?: Yes Plan: Currently all stable (3) Hypertension Qualifiers: Hypertension type: essential hypertension Qualified Code(s): I10 - Essential (primary) hypertension Is this a current diagnosis for this admission?: Yes Plan: His current medication (4) Chronic kidney disease Qualifiers: Chronic kidney disease stage: stage 3 (moderate) Qualified Code(s): N18.3 - Chronic kidney disease, stage 3 (moderate) Is this a current diagnosis for this admission?: Yes (5) Type 2 diabetes mellitus Qualifiers: 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 use: unspecified assisted insulin use status Diabetes mellitus complication status: with unspecified complications Qualified Code(s): E11.8 - Type 2 diabetes mellitus with unspecified complications Is this a current diagnosis for this admission?: Yes Plan: Continues to current insulin and sliding scale (6) Hyperlipemia Qualifiers: Hyperlipidemia type: unspecified Qualified Code(s): E78.5 - Hyperlipidemia, unspecified Is this a current diagnosis for this admission?: Yes (7) Coronary artery disease Qualifiers: Coronary Disease-Associated Artery/Lesion type: unspecified vessel or lesion type Associated angina: without angina Is this a current diagnosis for this admission?: Yes Plan: Patient's recent cardiology workup is stable (8) Congestive heart failure Qualifiers: Heart failure type: diastolic Heart failure chronicity: chronic Qualified Code(s): I50.32 - Chronic diastolic (congestive) heart failure Is this a current diagnosis for this admission?: Yes Plan: Into the Dr. Arceo patient's recent echocardiogram with a normal EF (9) Bradycardia Is this a current diagnosis for this admission?: Yes Plan: Will get the stat EKG We will get the stat chest x-ray to rule out any pneumothorax discussed with the radiology and pulmonary Consult Dr. Consuelo Jones the beta-heron - Time Time Spent with patient: 25-34 minutes Medications reviewed and adjusted accordingly: Yes Anticipated discharge: Home Within: Other - Plan Summary Plan Summary: Patient unable to go home today due to the this episodes Discussed with the patient and the to further workup Discussed with the nursing staff to get a stat chest x-ray and EKG Discussed with the coordinate computer consultant
[2018-08-08] MEDS: INSULIN LISPRO 100 UNIT/ML 3 ML VIAL SUBCUT SCH ×4 (09:00→22:35)
[2018-08-08] MEDS: AMLODIPINE BESYLATE 2.5 MG TABLET PO SCH ×2 (09:01→22:35)
--- NOTE | 2018-08-08 09:07 | RADIOLOGY REPORT (SQ) ---
EXAM DESCRIPTION: CHEST 2 VIEWS COMPLETED DATE/TIME: 08/08/2018 8:53 am REASON FOR STUDY: SOB COMPARISON: 08/08/2018 EXAM PARAMETERS: NUMBER OF VIEWS: two views TECHNIQUE: Digital Frontal and Lateral radiographic views of the chest acquired. RADIATION DOSE: NA LIMITATIONS: none FINDINGS: LUNGS AND PLEURA: No appreciable pneumothorax. Trace residual fluid on the left with unch anged basilar opacification, likely atelectasis. Unremarkable right hemithorax. MEDIASTINUM AND HILAR STRUCTURES: Stable. HEART AND VASCULAR STRUCTURES: Normal heart size. Aortic atherosclerosis. BONES: No acute findings. HARDWARE: None in the chest. OTHER: No other significant finding. IMPRESSION: No appreciable pneumothorax. Stable trace left pleural effusion and basilar atelectasis. TECHNICAL DOCUMENTATION: JOB ID: [id number] [employer]- All Rights Reserved Reading location - IP/workstation name: [email or web address]
[2018-08-08] MEDS: ALLOPURINOL 100 MG TABLET PO SCH (09:10)
[2018-08-08] MEDS: ASPIRIN 81 MG TABLET, CHEWABLE PO SCH (09:10)
[2018-08-08] MEDS: FUROSEMIDE 20 MG TABLET PO SCH ×2 (09:10→17:47)
[2018-08-08] MEDS: TAMSULOSIN HCL 0.4 MG CAP.SR.24H PO SCH (09:10)
[2018-08-08] MEDS: LEVOFLOXACIN 250 MG TABLET PO SCH (09:10)
[2018-08-08] MEDS: INSULIN GLARGINE,HUM.REC.ANLOG 300 UNIT/3 ML INSULN.PEN SUBCUT SCH ×2 (09:11→22:38)
[2018-08-08] MEDS: LOSARTAN POTASSIUM 50 MG TABLET PO SCH (10:00)
--- NOTE | 2018-08-08 10:18 | EKG REPORT ---
SEVERITY:- ABNORMAL ECG - SINUS BRADYCARDIA FIRST DEGREE AV BLOCK PROBABLE LEFT ATRIAL ABNORMALITY : Confirmed by: Wilman Stacy 08-Aug-2018 10:17:37
[2018-08-08 11:47] LABS: FREE T3 2.73 pg/mL (2.77-5.27); FREE T4 (FREE THYROXINE) 1.54 ng/dL (0.78-2.19)
[2018-08-08 12:00] LABS: THYROID STIMULATING HORMONE 4.15 uIU/mL (0.47-4.68)
--- NOTE | 2018-08-08 17:56 | PDOC PROGRESS REPORT ---
Subjective Progress Note for:: 08/08/18 Subjective:: Patient had an episode of diaphoresis and shortness of breath early in the morning. He had a stat chest x-ray and EKG we did not show much abnormality disease. He was placed on oxygen and has been doing fine since. When I entered his room he felt comfortable lying in bed without any shortness of breath or distress. informed me that he actually was able to walk down the halls with oxygen without any problems. Reason For Visit: L SIDE PLEURAL EFFUSION Physical Exam Vital Signs: Temp Pulse Resp BP Pulse Ox 97.7 F 58 L 18 103/45 L 100 08/08/18 15:11 08/08/18 15:11 08/08/18 15:11 08/08/18 15:11 08/08/18 15:11 Intake & Output 08/07/18 08/08/18 08/09/18 06:59 06:59 06:59 Intake Total 1343 225 503 Output Total 2000 625 200 Balance -657 -400 303 Weight 91 kg 91.3 kg Exam: General appearance: PRESENT: no acute distress, cooperative, well-developed, well-nourished Head exam: PRESENT: atraumatic, normocephalic Eye exam: PRESENT: conjunctiva slightly pale, PERRLA. ABSENT: scleral icterus Neck exam: ABSENT: JVD Respiratory exam: PRESENT: Diminished breath sounds. ABSENT: crackles, rales, rhonchi, unlabored, wheezes Cardiovascular exam: PRESENT: Regular rate rhythm -+S1, +S2. ABSENT: diastolic murmur, systolic murmur GI/Abdominal exam: PRESENT: normal bowel sounds, soft. ABSENT: guarding, mass, tenderness Extremities exam: ABSENT: No edema Neurological exam: PRESENT: alert, awake, oriented to person, place and time. Skin exam: PRESENT: dry, warm, Cardiovascular exam: PRESENT: +S1, +S2, systolic murmur GI/Abdominal exam: PRESENT: normal bowel sounds, soft. ABSENT: organomegaly, tenderness Results Laboratory Results: 08/07/18 07:22 08/08/18 04:13 08/08/18 08/08/18 04:13 04:13 Sodium 141.2 Potassium 4.6 Chloride 110 H Carbon Dioxide 21 L Anion Gap 10 BUN 80 H Creatinine 4.87 H Est GFR ( Amer) 14 L Est GFR (Non-Af Amer) 11 L Glucose 107 Calcium 8.9 TSH 4.15 Free T4 1.54 Free T3 pg/mL 2.73 L Impressions: Chest Ultrasound 07/30/18 00:00 IMPRESSION: Re-accumulation of a moderate size left pleural effusion Thoracentesis Ultrasound 08/01/18 06:59 IMPRESSION: SUCCESSFUL PLACEMENT OF A LEFT SIDED CHEST TUBE USING ULTRASOUND GUIDANCE. Chest X-Ray 08/08/18 00:00 IMPRESSION: No appreciable pneumothorax. Stable trace left pleural effusion and basilar atelectasis. Assessment & Plan - Diagnosis (1) Acute kidney injury superimposed on chronic kidney disease Is this a current diagnosis for this admission?: Yes Plan: Kidney function is currently stable. In preparation to being discharged home I will change the Lasix to 20 mg p.o. twice daily. No need for any renal replacement therapy at this point. Continue same management. (2) Chronic kidney disease, stage 3 Is this a current diagnosis for this admission?: Yes Plan: Stable kidney function as above. Advised patient and to keep appointment with Dr. Yanes on August 16. They will do the lab work couple of days before the appointment. (3) Congestive heart failure with left ventricular diastolic dysfunction Qualifiers: Congestive heart failure chronicity: acute on chronic Qualified Code(s): I50.33 - Acute on chronic diastolic (congestive) heart failure Is this a current diagnosis for this admission?: Yes Plan: Compensated. (4) Pleural effusion Is this a current diagnosis for this admission?: Yes Plan: Chest tube removed yesterday and patient has been doing fine without it. Chest x-ray did not show any reaccumulation post removal of chest tube. (5) Hypertension Qualifiers: Hypertension type: essential hypertension Qualified Code(s): I10 - Essential (primary) hypertension Is this a current diagnosis for this admission?: Yes Plan: Fairly controlled. (6) Anemia Qualifiers: Chronic kidney disease stage: stage 3 (moderate) Is this a current diagnosis for this admission?: Yes Plan: Stable. (7) Type 2 diabetes mellitus Qualifiers: Diabetes mellitus senior care insulin use: unspecified senior care insulin use status Diabetes mellitus complication status: with unspecified complications Qualified Code(s): E11.8 - Type 2 diabetes mellitus with unspecified complications Is this a current diagnosis for this admission?: Yes - Time Time with patient: 15-25 minutes
--- NOTE | 2018-08-08 20:27 | PDOC CONSULTATION ---
Consultation-Blank Consultation: CARDIOLOGY consultation by Dr. Rafaela Mantilla on 08/08/2018. Patient seen at 11 AM on 08/08/2018. REASON FOR CONSULTATION: Bradycardia. HISTORY OF PRESENT ILLNESS: Patient is a 83-year-old male with known history of hypertension, history of chronic kidney disease stage IV who recently was found to have a pneumonia and subsequently developed a left pleural effusion, and was admitted for thoracentesis. Which he did have a thoracentesis which fluid analysis proved to be a transudate. The patient was improving and his chest tube was removed yesterday. This morning the patient had sudden onset of diaphoresis and feeling of difficulty taking a deep breath and lasting a few seconds. At this time the patient was found to have a heart rate in the 30s, and even to be into the 20s. Although his blood pressures per the nurse was stable he heart rate after placing the patient on oxygen came up to greater than 90%. The patient states his shortness of breath was more of a difficulty to take a deep breath and it lasted only a few seconds. He states this happened about a few weeks ago as an outpatient. He denies dizziness or near syncope or syncope but had a feeling of generalized weakness along with diaphoresis. He denies any chest pain discomfort. Note the patient is on a beta-heron. The patient also has significant chronic kidney disease. Note the patient denies any focal weakness, blurred vision, or headaches, or loss of memory. At present the patient is asymptomatic. He has a history of hypothyroidism on replacement. The TSH is upper normal level. The T3 is marginally slightly low. He has no history of diabetes mellitus. There is no history of asthma or COPD. The patient does have a history of sleep apnea. EXTREMITIES: Femorals are well felt. There is no femoral bruits. Leg pulses are well felt. There is no pedal edema. There is no DVT or cellulitis. There is no calf tenderness. C PAST MEDICAL HISTORY PAST SURGICAL HISTORY: ALLERGIES: The patient has no known allergies. Next SOCIAL HISTORY: He is ex-smoker quit smoking long time ago. There is no history of EtOH abuse. FAMILY HISTORY: DISPOSITION: The patient is a full code his is a surrogate healthcare decision maker. REVIEW SYSTEMS: PHYSICAL EXAMINATION: The patient is well-built and well-nourished at present in no acute distress. Selected Entries 08/08/18 11:16 Temperature 97.4 F Temperature Oral Source Pulse Rate 65 Respiratory 19 Rate Blood Pressure 119/50 L Blood Pressure 73 Mean BP Location Left Arm BP Position Sitting O2 Sat by Pulse 99 Oximetry Oxygen Delivery Room Air Method Head: Is atraumatic normocephalic. EYES: Pupils are equal round regular react to light accommodation. Extraocular movements are normal. There is no clinical pallor. There is no scleral icterus. EARS: Tympanic membranes are intact. External auditory canals appear. NOSE: There is no deviated nasal septum. There is no information nasal mucous membrane. MOUTH: Mucous membranes of the mouth are moist. Tongue is moist. There is no ulcers in the mouth. THROAT: There is no redness of the oropharynx. There is no exudates. SKIN: There is no skin lesions or skin rashes. There is no petechia or ecchymosis. NECK: Is supple. There is no JVD. Carotids are equal there is no bruits. There is no lymphadenopathy there is no goiter. There is no accessory muscle respiration use. Trachea central. LUNGS: Is clear to auscultation percussion without any rhonchi rales or wheezing. On palpation there is no chest wall tenderness. HEART: S1-S2 is heard. There is no S3 gallop. There is no S4 gallop. There is systolic murmur left sternal border and the apex without significant radiation. There is no rub. ABDOMEN: Is soft. Nontender. There is no hepatosplenic megaly. Bowel sounds are well heard. There is no tender areas masses. EXTREMITIES: Femorals are well felt. There is no femoral bruits. Leg pulses well felt. There is no pedal edema. There is no DVT or cellulitis. There is no calf tenderness. There is no cyanosis or clubbing. Capillary refill is normal. 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 PSYCHIATRIC: The patient judgment and insight are intact his affect is normal. Current Medications Generic Name Dose Route Start Last Admin Trade Name Freq PRN Reason Stop Dose Admin Acetaminophen 650 mg 07/27/18 08:24 08/05/18 09:44 Tylenol 325 Mg Tablet PO 08/26/18 08:23 650 mg Q6HP PRN Administration FOR PAIN Allopurinol 100 mg 07/27/18 10:00 08/08/18 09:10 Zyloprim 100 Mg Tablet PO 08/26/18 09:59 100 mg DAILY [facility] Administration Amlodipine Besylate 2.5 mg 07/30/18 22:00 08/08/18 22:35 Norvasc 2.5 Mg Tablet PO 08/29/18 21:59 Not Given Q12 [facility] Aspirin 81 mg 07/27/18 10:00 08/08/18 09:10 Aspirin 81 Mg Chewable Tablet PO 08/26/18 09:59 81 mg DAILY [facility] Administration Atorvastatin Calcium 40 mg 07/26/18 22:00 08/08/18 22:38 Lipitor 40 Mg Tablet PO 08/25/18 21:59 40 mg QHS [facility] Administration Calcitriol 0.25 mcg 07/27/18 10:00 08/06/18 09:43 Rocaltrol 0.25 Mcg Capsule PO 08/26/18 09:59 0.25 mcg MOFR@1000 [facility] Administration Dextrose 12.5 gm 07/26/18 11:29 Dextrose Inj 50% Syringe (25 Gm/50 Ml) IV 08/25/18 11:28 PRN PRN FOR BG 50-69 IN ALERT PATIENT Protocol Dextrose 25 gm 07/26/18 11:29 Dextrose Inj 50% Syringe (25 Gm/50 Ml) IV 08/25/18 11:28 PRN PRN PER PROTOCOL Protocol Furosemide 20 mg 08/07/18 10:00 08/08/18 17:47 Lasix 20 Mg Tablet PO 09/06/18 09:59 20 mg BID [facility] Administration Glucagon 1 mg 07/26/18 11:29 Glucagen Inj 1 Mg Vial IM 08/25/18 11:28 PRN PRN Evaluate for BG < 70 Protocol Glucose 15 gm 07/26/18 11:29 Glutose 40% Gel 15 Gm Tube PO 08/25/18 11:28 PRN PRN FOR BG 50-69 IN ALERT PATIENT Protocol Glucose 30 gm 07/26/18 11:29 Glutose 40% Gel 15 Gm Tube PO 08/25/18 11:28 PRN PRN FOR BG < 50 IN ALERT PATIENT Protocol Hydralazine HCl 25 mg 07/26/18 14:00 08/08/18 22:34 Apresoline 25 Mg Tablet PO 08/25/18 13:59 Not Given Q8 [facility] Insulin Glargine 15 unit 07/26/18 12:00 08/08/18 22:38 Lantus Insulin Inj 300 Unit/3 Ml Pen SUBCUT 08/25/18 11:59 15 units Q12 [facility] Administration Insulin Human Lispro 0 - 12 unit 07/26/18 16:00 08/08/18 22:35 Humalog Insulin 100 Unit/1 Ml 3 Ml Vial SUBCUT 08/25/18 15:59 Not Given ACHS [facility] Protocol Lansoprazole 15 mg 07/27/18 06:00 08/08/18 05:11 Prevacid 15 Mg Odt Tablet PO 08/26/18 05:59 15 mg Q6AM [facility] Administration Levofloxacin 250 mg 08/02/18 10:00 08/08/18 09:10 Levaquin 250 Mg Tablet PO 08/09/18 09:59 250 mg DAILY [facility] Administration Levothyroxine Sodium 0.1 mg 07/27/18 06:00 08/08/18 05:11 Synthroid 0.1 Mg Tablet PO 08/26/18 05:59 0.1 mg Q6AM [facility] Administration Losartan Potassium 100 mg 07/27/18 10:00 08/08/18 10:00 Cozaar 50 Mg Tablet PO 08/26/18 09:59 Not Given DAILY [facility] Tamsulosin HCl 0.4 mg 07/27/18 10:00 08/08/18 09:10 Flomax 0.4 Mg Cap.Sr PO 08/26/18 09:59 0.4 mg DAILY [facility] Administration Discontinued Medications Generic Name Dose Route Start Last Admin Trade Name Jayq PRN Reason Stop Dose Admin Amlodipine Besylate 5 mg 07/26/18 22:00 07/30/18 11:26 Norvasc 5 Mg Tablet PO 08/25/18 21:59 Not Given Q12 [facility] Amlodipine Besylate 2.5 mg 07/30/18 22:00 Norvasc 5 Mg Tablet PO 08/29/18 21:59 Q12 [facility] Carvedilol 25 mg 07/26/18 18:00 08/03/18 05:24 Coreg 12.5 Mg Tablet PO 08/25/18 17:59 Not Given Q12A [place] Carvedilol 25 mg 08/03/18 10:00 08/07/18 22:02 Coreg 12.5 Mg Tablet PO 09/02/18 09:59 Not Given Q12 [facility] Furosemide 40 mg 07/26/18 18:00 07/27/18 09:17 Lasix 40 Mg Tablet PO 08/25/18 17:59 40 mg BID [facility] Administration Furosemide 40 mg 07/27/18 17:30 07/28/18 22:14 Lasix Inj/Pf 40 Mg/4 Ml Sdv IV 08/26/18 17:29 40 mg Q12 [facility] Administration Furosemide 40 mg 07/29/18 10:00 07/31/18 10:15 Lasix Inj/Pf 40 Mg/4 Ml Sdv IV 08/28/18 09:59 40 mg DAILY [place] Administration Furosemide 20 mg 07/31/18 22:00 08/06/18 22:39 Lasix Inj/Pf 40 Mg/4 Ml Sdv IV 08/30/18 21:59 20 mg Q12 [facility] Administration Cefepime HCl 1 gm in 50 mls @ 100 mls/hr 07/26/18 11:00 07/26/18 11:46 Maxipime Rtu 1 Gm/D5w 50 Ml Premix Bag IV 08/02/18 10:59 Infused Q12 [facility] Infusion Cefepime HCl 2 gm in 50 mls @ 100 mls/hr 07/27/18 10:00 07/30/18 10:15 Maxipime Rtu 2 Gm-D5w 50 Ml Premix Bag IV 07/30/18 10:59 Infused DAILY [facility] Infusion Cefepime HCl 2 gm/ Dextrose 50 mls @ 100 mls/hr 07/31/18 10:00 08/06/18 10:30 IV 08/07/18 09:59 Infused DAILY [facility] Infusion Insulin Glargine Confirm 08/06/18 22:53 08/06/18 23:25 Lantus Insulin 100 Unit/1 Ml 10 Ml Administered 08/06/18 22:54 1 unit Dose Administration 1 unit SUBCUT .STK-MED ONE Levofloxacin 500 mg 08/01/18 10:00 08/01/18 11:04 Levaquin 500 Mg Tablet PO 08/08/18 09:59 500 mg DAILY [place] Administration Sodium Bicarbonate 650 mg 07/26/18 18:00 07/31/18 10:13 Sodium Bicarbonate 650 Mg Tablet PO 08/25/18 17:59 650 mg BID [place] Administration Allopurinol [Zyloprim 100 mg Tablet] 100 mg PO DAILY 09/28/11 Amlodipine Besylate [Norvasc 5 mg Tablet] 5 mg PO Q12 04/18/12 Aspirin [Aspirin 81 mg Chewable Tablet] 81 mg PO DAILY 09/28/11 Carvedilol [Coreg 25 mg Tablet] 25 mg PO BID 07/22/14 Atorvastatin Calcium [Lipitor 40 mg Tablet] 40 mg PO QHS 07/26/18 Calcitriol [Rocaltrol] 0.25 mcg PO MOFR@1000 07/26/18 Ferrous Sulfate [Feosol] 325 mg PO DAILY 07/26/18 Hydralazine HCl [Apresoline 25 mg Tablet] 25 mg PO TID 07/26/18 Insulin Aspart [Novolog Flexpen] See Protocol SQ AC PRN 07/26/18 Insulin Glargine,Hum.rec.anlog [Lantus Insulin 100 Unit/1 ml 10 ml] See Protocol SQ BID 07/26/18 Levothyroxine Sodium [Synthroid 0.1 mg Tablet] 0.1 mg PO Q6AM 07/26/18 Losartan Potassium [Cozaar 100 mg Tablet] 100 mg PO DAILY 07/26/18 Omeprazole 20 mg PO Q6AM 07/26/18 Sodium Bicarbonate [Antacid] 650 mg PO BID 07/26/18 Tamsulosin HCl [Flomax] 0.4 mg PO DAILY 07/26/18 Labs- Entire Visit 07/26/18 07/26/18 07/26/18 10:10 10:10 10:10 WBC 6.6 RBC 3.55 L Hgb 11.0 L Hct 32.5 L MCV 92 MCH 31.1 MCHC 34.0 RDW 16.5 H Plt Count 198 Seg Neutrophils % 63.5 Lymphocytes % 21.2 Monocytes % 8.5 Eosinophils % 5.6 Basophils % 1.2 Absolute Neutrophils 4.2 Absolute Lymphocytes 1.4 Absolute Monocytes 0.6 Absolute Eosinophils 0.4 Absolute Basophils 0.1 Retic Count (auto) Absolute Retic PT 14.0 INR 1.03 APTT Carbonic Acid HCO3/H2CO3 Ratio ABG pH ABG pCO2 ABG pO2 ABG HCO3 ABG Total CO2 ABG O2 Saturation ABG Base Excess FiO2 Sodium 144.4 Potassium 4.3 Chloride 110 H Carbon Dioxide 27 Anion Gap 7 BUN 55 H Creatinine 4.16 H Est GFR ( Amer) 17 L Est GFR (Non-Af Amer) 14 L Glucose 206 H POC Glucose Calcium 8.5 Iron TIBC % Saturation Ferritin Total Bilirubin 0.5 Direct Bilirubin 0.4 Neonat Total Bilirubin Not Reportable Neonat Direct Bilirubin Not Reportable Neonat Indirect Bili Not Reportable AST 13 L ALT 16 L Alkaline Phosphatase 120 Total Protein 5.8 L Albumin 3.2 L Vitamin B12 Folate TSH Free T4 Free T3 pg/mL Urine Color Urine Appearance Urine pH Ur Specific [place] Urine Protein Urine Glucose (UA) Urine Ketones Urine Blood Urine Nitrite Urine Bilirubin Urine Urobilinogen Ur Leukocyte Esterase Urine WBC (Auto) Urine RBC (Auto) Urine Mucus (Auto) Urine Ascorbic Acid Fluid Type Fluid Source Fluid Color Fluid Appearance Fluid Viscosity Fluid WBC Fluid RBC Fluid Seg Neutrophils Fluid Lymphocytes Fluid Monocytes Fluid Eosinophils Fluid Basophils Fluid Glucose Fluid Total Protein Fluid LDH Fluid Amylase AFB Smear Slides for Path Review 07/26/18 07/26/18 07/26/18 15:08 15:08 15:08 WBC RBC Hgb Hct MCV MCH MCHC RDW Plt Count Seg Neutrophils % Lymphocytes % Monocytes % Eosinophils % Basophils % Absolute Neutrophils Absolute Lymphocytes Absolute Monocytes Absolute Eosinophils Absolute Basophils Retic Count (auto) Absolute Retic PT INR APTT Carbonic Acid HCO3/H2CO3 Ratio ABG pH ABG pCO2 ABG pO2 ABG HCO3 ABG Total CO2 ABG O2 Saturation ABG Base Excess FiO2 Sodium Potassium Chloride Carbon Dioxide Anion Gap BUN Creatinine Est GFR ( Amer) Est GFR (Non-Af Amer) Glucose POC Glucose Calcium Iron TIBC % Saturation Ferritin Total Bilirubin Direct Bilirubin Neonat Total Bilirubin Neonat Direct Bilirubin Neonat Indirect Bili AST ALT Alkaline Phosphatase Total Protein Albumin Vitamin B12 Folate TSH Free T4 Free T3 pg/mL Urine Color Urine Appearance Urine pH Ur Specific [place] Urine Protein Urine Glucose (UA) Urine Ketones Urine Blood Urine Nitrite Urine Bilirubin Urine Urobilinogen Ur Leukocyte Esterase Urine WBC (Auto) Urine RBC (Auto) Urine Mucus (Auto) Urine Ascorbic Acid Fluid Type PLEURAL Fluid Source Fluid Color LIGHT YELLOW Fluid Appearance HAZY Fluid Viscosity LIQUID Fluid WBC 728 Fluid RBC 4575 Fluid Seg Neutrophils 30 Fluid Lymphocytes 46 Fluid Monocytes 6 Fluid Eosinophils 18 Fluid Basophils 0 Fluid Glucose 176 Fluid Total Protein Fluid LDH Fluid Amylase 20 AFB Smear Slides for Path Review PATHOLOGIST REVIEWED 07/26/18 07/26/18 07/26/18 15:08 15:08 16:21 WBC RBC Hgb Hct MCV MCH MCHC RDW Plt Count Seg Neutrophils % Lymphocytes % Monocytes % Eosinophils % Basophils % Absolute Neutrophils Absolute Lymphocytes Absolute Monocytes Absolute Eosinophils Absolute Basophils Retic Count (auto) Absolute Retic PT INR APTT Carbonic Acid HCO3/H2CO3 Ratio ABG pH ABG pCO2 ABG pO2 ABG HCO3 ABG Total CO2 ABG O2 Saturation ABG Base Excess FiO2 Sodium Potassium Chloride Carbon Dioxide Anion Gap BUN Creatinine Est GFR ( Amer) Est GFR (Non-Af Amer) Glucose POC Glucose 201 H Calcium Iron TIBC % Saturation Ferritin Total Bilirubin Direct Bilirubin Neonat Total Bilirubin Neonat Direct Bilirubin Neonat Indirect Bili AST ALT Alkaline Phosphatase Total Protein Albumin Vitamin B12 Folate TSH Free T4 Free T3 pg/mL Urine Color Urine Appearance Urine pH Ur Specific [place] Urine Protein Urine Glucose (UA) Urine Ketones Urine Blood Urine Nitrite Urine Bilirubin Urine Urobilinogen Ur Leukocyte Esterase Urine WBC (Auto) Urine RBC (Auto) Urine Mucus (Auto) Urine Ascorbic Acid Fluid Type Fluid Source Fluid Color Fluid Appearance Fluid Viscosity Fluid WBC Fluid RBC Fluid Seg Neutrophils Fluid Lymphocytes Fluid Monocytes Fluid Eosinophils Fluid Basophils Fluid Glucose Fluid Total Protein 2.9 Fluid LDH 142 Fluid Amylase AFB Smear NO ACID FAST BACILLI Slides for Path Review 07/26/18 07/26/18 07/27/18 17:35 21:24 06:13 WBC RBC Hgb Hct MCV MCH MCHC RDW Plt Count Seg Neutrophils % Lymphocytes % Monocytes % Eosinophils % Basophils % Absolute Neutrophils Absolute Lymphocytes Absolute Monocytes Absolute Eosinophils Absolute Basophils Retic Count (auto) Absolute Retic PT INR APTT Carbonic Acid HCO3/H2CO3 Ratio ABG pH ABG pCO2 ABG pO2 ABG HCO3 ABG Total CO2 ABG O2 Saturation ABG Base Excess FiO2 Sodium Potassium Chloride Carbon Dioxide Anion Gap BUN Creatinine Est GFR ( Amer) Est GFR (Non-Af Amer) Glucose POC Glucose 222 H 166 H 68 L Calcium Iron TIBC % Saturation Ferritin Total Bilirubin Direct Bilirubin Neonat Total Bilirubin Neonat Direct Bilirubin Neonat Indirect Bili AST ALT Alkaline Phosphatase Total Protein Albumin Vitamin B12 Folate TSH Free T4 Free T3 pg/mL Urine Color Urine Appearance Urine pH Ur Specific [place] Urine Protein Urine Glucose (UA) Urine Ketones Urine Blood Urine Nitrite Urine Bilirubin Urine Urobilinogen Ur Leukocyte Esterase Urine WBC (Auto) Urine RBC (Auto) Urine Mucus (Auto) Urine Ascorbic Acid Fluid Type Fluid Source Fluid Color Fluid Appearance Fluid Viscosity Fluid WBC Fluid RBC Fluid Seg Neutrophils Fluid Lymphocytes Fluid Monocytes Fluid Eosinophils Fluid Basophils Fluid Glucose Fluid Total Protein Fluid LDH Fluid Amylase AFB Smear Slides for Path Review 07/27/18 07/27/18 07/27/18 07:26 10:27 10:27 WBC 7.0 RBC 3.04 L Hgb 9.3 L Hct 27.5 L MCV 91 MCH 30.6 MCHC 33.8 RDW 16.4 H Plt Count 159 Seg Neutrophils % Lymphocytes % Monocytes % Eosinophils % Basophils % Absolute Neutrophils Absolute Lymphocytes Absolute Monocytes Absolute Eosinophils Absolute Basophils Retic Count (auto) Absolute Retic PT INR APTT Carbonic Acid HCO3/H2CO3 Ratio ABG pH ABG pCO2 ABG pO2 ABG HCO3 ABG Total CO2 ABG O2 Saturation ABG Base Excess FiO2 Sodium 141.7 Potassium 4.2 Chloride 109 H Carbon Dioxide 24 Anion Gap 9 BUN 56 H Creatinine 4.26 H Est GFR ( Amer) 16 L Est GFR (Non-Af Amer) 13 L Glucose 155 H POC Glucose 110 Calcium 8.1 L Iron TIBC % Saturation Ferritin Total Bilirubin Direct Bilirubin Neonat Total Bilirubin Neonat Direct Bilirubin Neonat Indirect Bili AST ALT Alkaline Phosphatase Total Protein Albumin Vitamin B12 Folate TSH Free T4 Free T3 pg/mL Urine Color Urine Appearance Urine pH Ur Specific [place] Urine Protein Urine Glucose (UA) Urine Ketones Urine Blood Urine Nitrite Urine Bilirubin Urine Urobilinogen Ur Leukocyte Esterase Urine WBC (Auto) Urine RBC (Auto) Urine Mucus (Auto) Urine Ascorbic Acid Fluid Type Fluid Source Fluid Color Fluid Appearance Fluid Viscosity Fluid WBC Fluid RBC Fluid Seg Neutrophils Fluid Lymphocytes Fluid Monocytes Fluid Eosinophils Fluid Basophils Fluid Glucose Fluid Total Protein Fluid LDH Fluid Amylase AFB Smear Slides for Path Review 07/27/18 07/27/18 07/27/18 10:56 16:21 18:45 WBC RBC Hgb Hct MCV MCH MCHC RDW Plt Count Seg Neutrophils % Lymphocytes % Monocytes % Eosinophils % Basophils % Absolute Neutrophils Absolute Lymphocytes Absolute Monocytes Absolute Eosinophils Absolute Basophils Retic Count (auto) Absolute Retic PT INR APTT Carbonic Acid HCO3/H2CO3 Ratio ABG pH ABG pCO2 ABG pO2 ABG HCO3 ABG Total CO2 ABG O2 Saturation ABG Base Excess FiO2 Sodium Potassium Chloride Carbon Dioxide Anion Gap BUN Creatinine Est GFR ( Amer) Est GFR (Non-Af Amer) Glucose POC Glucose 179 H 164 H Calcium Iron TIBC % Saturation Ferritin Total Bilirubin Direct Bilirubin Neonat Total Bilirubin Neonat Direct Bilirubin Neonat Indirect Bili AST ALT Alkaline Phosphatase Total Protein Albumin Vitamin B12 Folate TSH Free T4 Free T3 pg/mL Urine Color YELLOW Urine Appearance CLEAR Urine pH 6.0 Ur Specific [place] 1.012 Urine Protein 100 H Urine Glucose (UA) 50 H Urine Ketones NEGATIVE Urine Blood NEGATIVE Urine Nitrite NEGATIVE Urine Bilirubin NEGATIVE Urine Urobilinogen NEGATIVE Ur Leukocyte Esterase NEGATIVE Urine WBC (Auto) 0 Urine RBC (Auto) 0 Urine Mucus (Auto) RARE Urine Ascorbic Acid NEGATIVE Fluid Type Fluid Source Fluid Color Fluid Appearance Fluid Viscosity Fluid WBC Fluid RBC Fluid Seg Neutrophils Fluid Lymphocytes Fluid Monocytes Fluid Eosinophils Fluid Basophils Fluid Glucose Fluid Total Protein Fluid LDH Fluid Amylase AFB Smear Slides for Path Review 07/27/18 07/28/18 07/28/18 21:18 04:47 04:47 WBC 6.4 RBC 2.99 L Hgb 9.2 L Hct 26.9 L MCV 90 MCH 30.9 MCHC 34.3 RDW 16.5 H Plt Count 141 L Seg Neutrophils % 62.1 Lymphocytes % 21.6 Monocytes % 11.2 Eosinophils % 4.3 Basophils % 0.8 Absolute Neutrophils 3.9 Absolute Lymphocytes 1.4 Absolute Monocytes 0.7 Absolute Eosinophils 0.3 Absolute Basophils 0.0 Retic Count (auto) Absolute Retic PT INR APTT Carbonic Acid HCO3/H2CO3 Ratio ABG pH ABG pCO2 ABG pO2 ABG HCO3 ABG Total CO2 ABG O2 Saturation ABG Base Excess FiO2 Sodium 142.6 Potassium 4.0 Chloride 111 H Carbon Dioxide 25 Anion Gap 7 BUN 62 H Creatinine 4.13 H Est GFR ( Amer) 17 L Est GFR (Non-Af Amer) 14 L Glucose 87 POC Glucose 190 H Calcium 8.2 L Iron TIBC % Saturation Ferritin Total Bilirubin Direct Bilirubin Neonat Total Bilirubin Neonat Direct Bilirubin Neonat Indirect Bili AST ALT Alkaline Phosphatase Total Protein Albumin Vitamin B12 Folate TSH Free T4 Free T3 pg/mL Urine Color Urine Appearance Urine pH Ur Specific [place] Urine Protein Urine Glucose (UA) Urine Ketones Urine Blood Urine Nitrite Urine Bilirubin Urine Urobilinogen Ur Leukocyte Esterase Urine WBC (Auto) Urine RBC (Auto) Urine Mucus (Auto) Urine Ascorbic Acid Fluid Type Fluid Source Fluid Color Fluid Appearance Fluid Viscosity Fluid WBC Fluid RBC Fluid Seg Neutrophils Fluid Lymphocytes Fluid Monocytes Fluid Eosinophils Fluid Basophils Fluid Glucose Fluid Total Protein Fluid LDH Fluid Amylase AFB Smear Slides for Path Review 07/28/18 07/28/18 07/28/18 06:28 10:51 16:20 WBC RBC Hgb Hct MCV MCH MCHC RDW Plt Count Seg Neutrophils % Lymphocytes % Monocytes % Eosinophils % Basophils % Absolute Neutrophils Absolute Lymphocytes Absolute Monocytes Absolute Eosinophils Absolute Basophils Retic Count (auto) Absolute Retic PT INR APTT Carbonic Acid HCO3/H2CO3 Ratio ABG pH ABG pCO2 ABG pO2 ABG HCO3 ABG Total CO2 ABG O2 Saturation ABG Base Excess FiO2 Sodium Potassium Chloride Carbon Dioxide Anion Gap BUN Creatinine Est GFR ( Amer) Est GFR (Non-Af Amer) Glucose POC Glucose 76 145 H 195 H Calcium Iron TIBC % Saturation Ferritin Total Bilirubin Direct Bilirubin Neonat Total Bilirubin Neonat Direct Bilirubin Neonat Indirect Bili AST ALT Alkaline Phosphatase Total Protein Albumin Vitamin B12 Folate TSH Free T4 Free T3 pg/mL Urine Color Urine Appearance Urine pH Ur Specific [place] Urine Protein Urine Glucose (UA) Urine Ketones Urine Blood Urine Nitrite Urine Bilirubin Urine Urobilinogen Ur Leukocyte Esterase Urine WBC (Auto) Urine RBC (Auto) Urine Mucus (Auto) Urine Ascorbic Acid Fluid Type Fluid Source Fluid Color Fluid Appearance Fluid Viscosity Fluid WBC Fluid RBC Fluid Seg Neutrophils Fluid Lymphocytes Fluid Monocytes Fluid Eosinophils Fluid Basophils Fluid Glucose Fluid Total Protein Fluid LDH Fluid Amylase AFB Smear Slides for Path Review 07/28/18 07/29/18 07/29/18 21:37 04:39 06:56 WBC RBC Hgb Hct MCV MCH MCHC RDW Plt Count Seg Neutrophils % Lymphocytes % Monocytes % Eosinophils % Basophils % Absolute Neutrophils Absolute Lymphocytes Absolute Monocytes Absolute Eosinophils Absolute Basophils Retic Count (auto) Absolute Retic PT INR APTT Carbonic Acid HCO3/H2CO3 Ratio ABG pH ABG pCO2 ABG pO2 ABG HCO3 ABG Total CO2 ABG O2 Saturation ABG Base Excess FiO2 Sodium 141.1 Potassium 4.1 Chloride 107 Carbon Dioxide 25 Anion Gap 9 BUN 65 H Creatinine 4.83 H Est GFR ( Amer) 14 L Est GFR (Non-Af Amer) 12 L Glucose 142 H POC Glucose 230 H 131 H Calcium 8.2 L Iron TIBC % Saturation Ferritin Total Bilirubin Direct Bilirubin Neonat Total Bilirubin Neonat Direct Bilirubin Neonat Indirect Bili AST ALT Alkaline Phosphatase Total Protein Albumin Vitamin B12 Folate TSH Free T4 Free T3 pg/mL Urine Color Urine Appearance Urine pH Ur Specific [place] Urine Protein Urine Glucose (UA) Urine Ketones Urine Blood Urine Nitrite Urine Bilirubin Urine Urobilinogen Ur Leukocyte Esterase Urine WBC (Auto) Urine RBC (Auto) Urine Mucus (Auto) Urine Ascorbic Acid Fluid Type Fluid Source Fluid Color Fluid Appearance Fluid Viscosity Fluid WBC Fluid RBC Fluid Seg Neutrophils Fluid Lymphocytes Fluid Monocytes Fluid Eosinophils Fluid Basophils Fluid Glucose Fluid Total Protein Fluid LDH Fluid Amylase AFB Smear Slides for Path Review 07/29/18 07/29/18 07/29/18 10:42 15:21 21:35 WBC RBC Hgb Hct MCV MCH MCHC RDW Plt Count Seg Neutrophils % Lymphocytes % Monocytes % Eosinophils % Basophils % Absolute Neutrophils Absolute Lymphocytes Absolute Monocytes Absolute Eosinophils Absolute Basophils Retic Count (auto) Absolute Retic PT INR APTT Carbonic Acid HCO3/H2CO3 Ratio ABG pH ABG pCO2 ABG pO2 ABG HCO3 ABG Total CO2 ABG O2 Saturation ABG Base Excess FiO2 Sodium Potassium Chloride Carbon Dioxide Anion Gap BUN Creatinine Est GFR ( Amer) Est GFR (Non-Af Amer) Glucose POC Glucose 187 H 249 H 170 H Calcium Iron TIBC % Saturation Ferritin Total Bilirubin Direct Bilirubin Neonat Total Bilirubin Neonat Direct Bilirubin Neonat Indirect Bili AST ALT Alkaline Phosphatase Total Protein Albumin Vitamin B12 Folate TSH Free T4 Free T3 pg/mL Urine Color Urine Appearance Urine pH Ur Specific [place] Urine Protein Urine Glucose (UA) Urine Ketones Urine Blood Urine Nitrite Urine Bilirubin Urine Urobilinogen Ur Leukocyte Esterase Urine WBC (Auto) Urine RBC (Auto) Urine Mucus (Auto) Urine Ascorbic Acid Fluid Type Fluid Source Fluid Color Fluid Appearance Fluid Viscosity Fluid WBC Fluid RBC Fluid Seg Neutrophils Fluid Lymphocytes Fluid Monocytes Fluid Eosinophils Fluid Basophils Fluid Glucose Fluid Total Protein Fluid LDH Fluid Amylase AFB Smear Slides for Path Review 07/30/18 07/30/18 07/30/18 04:37 06:44 10:29 WBC RBC Hgb Hct MCV MCH MCHC RDW Plt Count Seg Neutrophils % Lymphocytes % Monocytes % Eosinophils % Basophils % Absolute Neutrophils Absolute Lymphocytes Absolute Monocytes Absolute Eosinophils Absolute Basophils Retic Count (auto) Absolute Retic PT INR APTT Carbonic Acid HCO3/H2CO3 Ratio ABG pH ABG pCO2 ABG pO2 ABG HCO3 ABG Total CO2 ABG O2 Saturation ABG Base Excess FiO2 Sodium 140.7 Potassium 4.2 Chloride 108 H Carbon Dioxide 24 Anion Gap 9 BUN 70 H Creatinine 4.74 H Est GFR ( Amer) 14 L Est GFR (Non-Af Amer) 12 L Glucose 158 H POC Glucose 151 H 252 H Calcium 8.1 L Iron TIBC % Saturation Ferritin Total Bilirubin Direct Bilirubin Neonat Total Bilirubin Neonat Direct Bilirubin Neonat Indirect Bili AST ALT Alkaline Phosphatase Total Protein Albumin Vitamin B12 Folate TSH Free T4 Free T3 pg/mL Urine Color Urine Appearance Urine pH Ur Specific [place] Urine Protein Urine Glucose (UA) Urine Ketones Urine Blood Urine Nitrite Urine Bilirubin Urine Urobilinogen Ur Leukocyte Esterase Urine WBC (Auto) Urine RBC (Auto) Urine Mucus (Auto) Urine Ascorbic Acid Fluid Type Fluid Source Fluid Color Fluid Appearance Fluid Viscosity Fluid WBC Fluid RBC Fluid Seg Neutrophils Fluid Lymphocytes Fluid Monocytes Fluid Eosinophils Fluid Basophils Fluid Glucose Fluid Total Protein Fluid LDH Fluid Amylase AFB Smear Slides for Path Review 07/30/18 07/30/18 07/30/18 10:30 15:46 21:01 WBC RBC Hgb Hct MCV MCH MCHC RDW Plt Count Seg Neutrophils % Lymphocytes % Monocytes % Eosinophils % Basophils % Absolute Neutrophils Absolute Lymphocytes Absolute Monocytes Absolute Eosinophils Absolute Basophils Retic Count (auto) Absolute Retic PT INR APTT Carbonic Acid 0.99 L HCO3/H2CO3 Ratio 21:1 ABG pH 7.43 ABG pCO2 33.0 L ABG pO2 76.4 L ABG HCO3 21.5 ABG Total CO2 22.5 L ABG O2 Saturation 95.8 ABG Base Excess -2.3 FiO2 21L Sodium Potassium Chloride Carbon Dioxide Anion Gap BUN Creatinine Est GFR ( Amer) Est GFR (Non-Af Amer) Glucose POC Glucose 111 H 203 H Calcium Iron TIBC % Saturation Ferritin Total Bilirubin Direct Bilirubin Neonat Total Bilirubin Neonat Direct Bilirubin Neonat Indirect Bili AST ALT Alkaline Phosphatase Total Protein Albumin Vitamin B12 Folate TSH Free T4 Free T3 pg/mL Urine Color Urine Appearance Urine pH Ur Specific [place] Urine Protein Urine Glucose (UA) Urine Ketones Urine Blood Urine Nitrite Urine Bilirubin Urine Urobilinogen Ur Leukocyte Esterase Urine WBC (Auto) Urine RBC (Auto) Urine Mucus (Auto) Urine Ascorbic Acid Fluid Type Fluid Source Fluid Color Fluid Appearance Fluid Viscosity Fluid WBC Fluid RBC Fluid Seg Neutrophils Fluid Lymphocytes Fluid Monocytes Fluid Eosinophils Fluid Basophils Fluid Glucose Fluid Total Protein Fluid LDH Fluid Amylase AFB Smear Slides for Path Review 07/31/18 07/31/18 07/31/18 05:50 05:50 11:48 WBC 5.2 RBC 2.92 L Hgb 9.0 L Hct 26.5 L MCV 91 MCH 30.7 MCHC 33.9 RDW 16.2 H Plt Count 133 L Seg Neutrophils % 59.2 Lymphocytes % 21.5 Monocytes % 11.5 Eosinophils % 6.8 H Basophils % 1.0 Absolute Neutrophils 3.1 Absolute Lymphocytes 1.1 Absolute Monocytes 0.6 Absolute Eosinophils 0.4 Absolute Basophils 0.1 Retic Count (auto) Absolute Retic PT INR APTT Carbonic Acid HCO3/H2CO3 Ratio ABG pH ABG pCO2 ABG pO2 ABG HCO3 ABG Total CO2 ABG O2 Saturation ABG Base Excess FiO2 Sodium 140.6 Potassium 4.0 Chloride 109 H Carbon Dioxide 23 Anion Gap 9 BUN 67 H Creatinine 4.98 H Est GFR ( Amer) 13 L Est GFR (Non-Af Amer) 11 L Glucose 130 H POC Glucose 198 H Calcium 8.1 L Iron TIBC % Saturation Ferritin Total Bilirubin Direct Bilirubin Neonat Total Bilirubin Neonat Direct Bilirubin Neonat Indirect Bili AST ALT Alkaline Phosphatase Total Protein Albumin Vitamin B12 Folate TSH Free T4 Free T3 pg/mL Urine Color Urine Appearance Urine pH Ur Specific [place] Urine Protein Urine Glucose (UA) Urine Ketones Urine Blood Urine Nitrite Urine Bilirubin Urine Urobilinogen Ur Leukocyte Esterase Urine WBC (Auto) Urine RBC (Auto) Urine Mucus (Auto) Urine Ascorbic Acid Fluid Type Fluid Source Fluid Color Fluid Appearance Fluid Viscosity Fluid WBC Fluid RBC Fluid Seg Neutrophils Fluid Lymphocytes Fluid Monocytes Fluid Eosinophils Fluid Basophils Fluid Glucose Fluid Total Protein Fluid LDH Fluid Amylase AFB Smear Slides for Path Review 07/31/18 07/31/18 08/01/18 16:13 21:17 05:33 WBC RBC Hgb Hct MCV MCH MCHC RDW Plt Count Seg Neutrophils % Lymphocytes % Monocytes % Eosinophils % Basophils % Absolute Neutrophils Absolute Lymphocytes Absolute Monocytes Absolute Eosinophils Absolute Basophils Retic Count (auto) Absolute Retic PT INR APTT Carbonic Acid HCO3/H2CO3 Ratio ABG pH ABG pCO2 ABG pO2 ABG HCO3 ABG Total CO2 ABG O2 Saturation ABG Base Excess FiO2 Sodium 142.0 Potassium 4.5 Chloride 109 H Carbon Dioxide 24 Anion Gap 9 BUN 69 H Creatinine 5.02 H Est GFR ( Amer) 13 L Est GFR (Non-Af Amer) 11 L Glucose 128 H POC Glucose 187 H 201 H Calcium 8.6 Iron TIBC % Saturation Ferritin Total Bilirubin Direct Bilirubin Neonat Total Bilirubin Neonat Direct Bilirubin Neonat Indirect Bili AST ALT Alkaline Phosphatase Total Protein Albumin Vitamin B12 Folate TSH Free T4 Free T3 pg/mL Urine Color Urine Appearance Urine pH Ur Specific [place] Urine Protein Urine Glucose (UA) Urine Ketones Urine Blood Urine Nitrite Urine Bilirubin Urine Urobilinogen Ur Leukocyte Esterase Urine WBC (Auto) Urine RBC (Auto) Urine Mucus (Auto) Urine Ascorbic Acid Fluid Type Fluid Source Fluid Color Fluid Appearance Fluid Viscosity Fluid WBC Fluid RBC Fluid Seg Neutrophils Fluid Lymphocytes Fluid Monocytes Fluid Eosinophils Fluid Basophils Fluid Glucose Fluid Total Protein Fluid LDH Fluid Amylase AFB Smear Slides for Path Review 08/01/18 08/01/18 08/01/18 06:57 07:33 11:11 WBC RBC Hgb Hct MCV MCH MCHC RDW Plt Count Seg Neutrophils % Lymphocytes % Monocytes % Eosinophils % Basophils % Absolute Neutrophils Absolute Lymphocytes Absolute Monocytes Absolute Eosinophils Absolute Basophils Retic Count (auto) Absolute Retic PT 14.0 INR 1.03 APTT 35.7 Carbonic Acid HCO3/H2CO3 Ratio ABG pH ABG pCO2 ABG pO2 ABG HCO3 ABG Total CO2 ABG O2 Saturation ABG Base Excess FiO2 Sodium Potassium Chloride Carbon Dioxide Anion Gap BUN Creatinine Est GFR ( Amer) Est GFR (Non-Af Amer) Glucose POC Glucose 134 H 226 H Calcium Iron TIBC % Saturation Ferritin Total Bilirubin Direct Bilirubin Neonat Total Bilirubin Neonat Direct Bilirubin Neonat Indirect Bili AST ALT Alkaline Phosphatase Total Protein Albumin Vitamin B12 Folate TSH Free T4 Free T3 pg/mL Urine Color Urine Appearance Urine pH Ur Specific [place] Urine Protein Urine Glucose (UA) Urine Ketones Urine Blood Urine Nitrite Urine Bilirubin Urine Urobilinogen Ur Leukocyte Esterase Urine WBC (Auto) Urine RBC (Auto) Urine Mucus (Auto) Urine Ascorbic Acid Fluid Type Fluid Source Fluid Color Fluid Appearance Fluid Viscosity Fluid WBC Fluid RBC Fluid Seg Neutrophils Fluid Lymphocytes Fluid Monocytes Fluid Eosinophils Fluid Basophils Fluid Glucose Fluid Total Protein Fluid LDH Fluid Amylase AFB Smear Slides for Path Review 08/01/18 08/01/18 08/02/18 16:24 20:47 04:17 WBC RBC Hgb Hct MCV MCH MCHC RDW Plt Count Seg Neutrophils % Lymphocytes % Monocytes % Eosinophils % Basophils % Absolute Neutrophils Absolute Lymphocytes Absolute Monocytes Absolute Eosinophils Absolute Basophils Retic Count (auto) Absolute Retic PT INR APTT Carbonic Acid HCO3/H2CO3 Ratio ABG pH ABG pCO2 ABG pO2 ABG HCO3 ABG Total CO2 ABG O2 Saturation ABG Base Excess FiO2 Sodium 142.3 Potassium 4.8 Chloride 110 H Carbon Dioxide 22 Anion Gap 10 BUN 67 H Creatinine 4.73 H Est GFR ( Amer) 14 L Est GFR (Non-Af Amer) 12 L Glucose 147 H POC Glucose 176 H 210 H Calcium 8.8 Iron TIBC % Saturation Ferritin Total Bilirubin Direct Bilirubin Neonat Total Bilirubin Neonat Direct Bilirubin Neonat Indirect Bili AST ALT Alkaline Phosphatase Total Protein Albumin Vitamin B12 Folate TSH Free T4 Free T3 pg/mL Urine Color Urine Appearance Urine pH Ur Specific [place] Urine Protein Urine Glucose (UA) Urine Ketones Urine Blood Urine Nitrite Urine Bilirubin Urine Urobilinogen Ur Leukocyte Esterase Urine WBC (Auto) Urine RBC (Auto) Urine Mucus (Auto) Urine Ascorbic Acid Fluid Type Fluid Source Fluid Color Fluid Appearance Fluid Viscosity Fluid WBC Fluid RBC Fluid Seg Neutrophils Fluid Lymphocytes Fluid Monocytes Fluid Eosinophils Fluid Basophils Fluid Glucose Fluid Total Protein Fluid LDH Fluid Amylase AFB Smear Slides for Path Review 08/02/18 08/02/18 08/02/18 06:24 11:37 15:34 WBC RBC Hgb Hct MCV MCH MCHC RDW Plt Count Seg Neutrophils % Lymphocytes % Monocytes % Eosinophils % Basophils % Absolute Neutrophils Absolute Lymphocytes Absolute Monocytes Absolute Eosinophils Absolute Basophils Retic Count (auto) Absolute Retic PT INR APTT Carbonic Acid HCO3/H2CO3 Ratio ABG pH ABG pCO2 ABG pO2 ABG HCO3 ABG Total CO2 ABG O2 Saturation ABG Base Excess FiO2 Sodium Potassium Chloride Carbon Dioxide Anion Gap BUN Creatinine Est GFR ( Amer) Est GFR (Non-Af Amer) Glucose POC Glucose 152 H 259 H 167 H Calcium Iron TIBC % Saturation Ferritin Total Bilirubin Direct Bilirubin Neonat Total Bilirubin Neonat Direct Bilirubin Neonat Indirect Bili AST ALT Alkaline Phosphatase Total Protein Albumin Vitamin B12 Folate TSH Free T4 Free T3 pg/mL Urine Color Urine Appearance Urine pH Ur Specific [place] Urine Protein Urine Glucose (UA) Urine Ketones Urine Blood Urine Nitrite Urine Bilirubin Urine Urobilinogen Ur Leukocyte Esterase Urine WBC (Auto) Urine RBC (Auto) Urine Mucus (Auto) Urine Ascorbic Acid Fluid Type Fluid Source Fluid Color Fluid Appearance Fluid Viscosity Fluid WBC Fluid RBC Fluid Seg Neutrophils Fluid Lymphocytes Fluid Monocytes Fluid Eosinophils Fluid Basophils Fluid Glucose Fluid Total Protein Fluid LDH Fluid Amylase AFB Smear Slides for Path Review 08/02/18 08/03/18 08/03/18 21:23 06:19 06:44 WBC 6.2 RBC 3.37 L Hgb 10.2 L Hct 30.4 L MCV 90 MCH 30.4 MCHC 33.6 RDW 16.1 H Plt Count 203 Seg Neutrophils % 61.5 Lymphocytes % 20.5 Monocytes % 10.7 Eosinophils % 6.4 H Basophils % 0.9 Absolute Neutrophils 3.8 Absolute Lymphocytes 1.3 Absolute Monocytes 0.7 Absolute Eosinophils 0.4 Absolute Basophils 0.1 Retic Count (auto) 1.31 Absolute Retic 0.044 PT INR APTT Carbonic Acid HCO3/H2CO3 Ratio ABG pH ABG pCO2 ABG pO2 ABG HCO3 ABG Total CO2 ABG O2 Saturation ABG Base Excess FiO2 Sodium Potassium Chloride Carbon Dioxide Anion Gap BUN Creatinine Est GFR ( Amer) Est GFR (Non-Af Amer) Glucose POC Glucose 205 H 127 H Calcium Iron TIBC % Saturation Ferritin Total Bilirubin Direct Bilirubin Neonat Total Bilirubin Neonat Direct Bilirubin Neonat Indirect Bili AST ALT Alkaline Phosphatase Total Protein Albumin Vitamin B12 Folate TSH Free T4 Free T3 pg/mL Urine Color Urine Appearance Urine pH Ur Specific [place] Urine Protein Urine Glucose (UA) Urine Ketones Urine Blood Urine Nitrite Urine Bilirubin Urine Urobilinogen Ur Leukocyte Esterase Urine WBC (Auto) Urine RBC (Auto) Urine Mucus (Auto) Urine Ascorbic Acid Fluid Type Fluid Source Fluid Color Fluid Appearance Fluid Viscosity Fluid WBC Fluid RBC Fluid Seg Neutrophils Fluid Lymphocytes Fluid Monocytes Fluid Eosinophils Fluid Basophils Fluid Glucose Fluid Total Protein Fluid LDH Fluid Amylase AFB Smear Slides for Path Review 08/03/18 08/03/18 08/03/18 06:44 14:10 17:01 WBC RBC Hgb Hct MCV MCH MCHC RDW Plt Count Seg Neutrophils % Lymphocytes % Monocytes % Eosinophils % Basophils % Absolute Neutrophils Absolute Lymphocytes Absolute Monocytes Absolute Eosinophils Absolute Basophils Retic Count (auto) Absolute Retic PT INR APTT Carbonic Acid HCO3/H2CO3 Ratio ABG pH ABG pCO2 ABG pO2 ABG HCO3 ABG Total CO2 ABG O2 Saturation ABG Base Excess FiO2 Sodium 141.2 Potassium 4.9 Chloride 109 H Carbon Dioxide 24 Anion Gap 8 BUN 64 H Creatinine 4.52 H Est GFR ( Amer) 15 L Est GFR (Non-Af Amer) 12 L Glucose 123 H POC Glucose 244 H 220 H Calcium 8.9 Iron 39.6 L TIBC 196 L % Saturation 20 Ferritin 350.00 Total Bilirubin Direct Bilirubin Neonat Total Bilirubin Neonat Direct Bilirubin Neonat Indirect Bili AST ALT Alkaline Phosphatase Total Protein Albumin Vitamin B12 249.0 Folate 9.12 TSH Free T4 Free T3 pg/mL Urine Color Urine Appearance Urine pH Ur Specific [place] Urine Protein Urine Glucose (UA) Urine Ketones Urine Blood Urine Nitrite Urine Bilirubin Urine Urobilinogen Ur Leukocyte Esterase Urine WBC (Auto) Urine RBC (Auto) Urine Mucus (Auto) Urine Ascorbic Acid Fluid Type Fluid Source Fluid Color Fluid Appearance Fluid Viscosity Fluid WBC Fluid RBC Fluid Seg Neutrophils Fluid Lymphocytes Fluid Monocytes Fluid Eosinophils Fluid Basophils Fluid Glucose Fluid Total Protein Fluid LDH Fluid Amylase AFB Smear Slides for Path Review 08/03/18 08/04/18 08/04/18 21:23 06:06 07:14 WBC RBC Hgb Hct MCV MCH MCHC RDW Plt Count Seg Neutrophils % Lymphocytes % Monocytes % Eosinophils % Basophils % Absolute Neutrophils Absolute Lymphocytes Absolute Monocytes Absolute Eosinophils Absolute Basophils Retic Count (auto) Absolute Retic PT INR APTT Carbonic Acid HCO3/H2CO3 Ratio ABG pH ABG pCO2 ABG pO2 ABG HCO3 ABG Total CO2 ABG O2 Saturation ABG Base Excess FiO2 Sodium 140.2 Potassium 5.0 Chloride 108 H Carbon Dioxide 23 Anion Gap 9 BUN 66 H Creatinine 4.82 H Est GFR ( Amer) 14 L Est GFR (Non-Af Amer) 12 L Glucose 165 H POC Glucose 217 H 154 H Calcium 8.8 Iron TIBC % Saturation Ferritin Total Bilirubin Direct Bilirubin Neonat Total Bilirubin Neonat Direct Bilirubin Neonat Indirect Bili AST ALT Alkaline Phosphatase Total Protein Albumin Vitamin B12 Folate TSH Free T4 Free T3 pg/mL Urine Color Urine Appearance Urine pH Ur Specific [place] Urine Protein Urine Glucose (UA) Urine Ketones Urine Blood Urine Nitrite Urine Bilirubin Urine Urobilinogen Ur Leukocyte Esterase Urine WBC (Auto) Urine RBC (Auto) Urine Mucus (Auto) Urine Ascorbic Acid Fluid Type Fluid Source Fluid Color Fluid Appearance Fluid Viscosity Fluid WBC Fluid RBC Fluid Seg Neutrophils Fluid Lymphocytes Fluid Monocytes Fluid Eosinophils Fluid Basophils Fluid Glucose Fluid Total Protein Fluid LDH Fluid Amylase AFB Smear Slides for Path Review 08/04/18 08/04/18 08/04/18 11:55 16:38 21:18 WBC RBC Hgb Hct MCV MCH MCHC RDW Plt Count Seg Neutrophils % Lymphocytes % Monocytes % Eosinophils % Basophils % Absolute Neutrophils Absolute Lymphocytes Absolute Monocytes Absolute Eosinophils Absolute Basophils Retic Count (auto) Absolute Retic PT INR APTT Carbonic Acid HCO3/H2CO3 Ratio ABG pH ABG pCO2 ABG pO2 ABG HCO3 ABG Total CO2 ABG O2 Saturation ABG Base Excess FiO2 Sodium Potassium Chloride Carbon Dioxide Anion Gap BUN Creatinine Est GFR ( Amer) Est GFR (Non-Af Amer) Glucose POC Glucose 279 H 165 H 222 H Calcium Iron TIBC % Saturation Ferritin Total Bilirubin Direct Bilirubin Neonat Total Bilirubin Neonat Direct Bilirubin Neonat Indirect Bili AST ALT Alkaline Phosphatase Total Protein Albumin Vitamin B12 Folate TSH Free T4 Free T3 pg/mL Urine Color Urine Appearance Urine pH Ur Specific [place] Urine Protein Urine Glucose (UA) Urine Ketones Urine Blood Urine Nitrite Urine Bilirubin Urine Urobilinogen Ur Leukocyte Esterase Urine WBC (Auto) Urine RBC (Auto) Urine Mucus (Auto) Urine Ascorbic Acid Fluid Type Fluid Source Fluid Color Fluid Appearance Fluid Viscosity Fluid WBC Fluid RBC Fluid Seg Neutrophils Fluid Lymphocytes Fluid Monocytes Fluid Eosinophils Fluid Basophils Fluid Glucose Fluid Total Protein Fluid LDH Fluid Amylase AFB Smear Slides for Path Review 08/05/18 08/05/18 08/05/18 05:48 07:04 11:25 WBC RBC Hgb Hct MCV MCH MCHC RDW Plt Count Seg Neutrophils % Lymphocytes % Monocytes % Eosinophils % Basophils % Absolute Neutrophils Absolute Lymphocytes Absolute Monocytes Absolute Eosinophils Absolute Basophils Retic Count (auto) Absolute Retic PT INR APTT Carbonic Acid HCO3/H2CO3 Ratio ABG pH ABG pCO2 ABG pO2 ABG HCO3 ABG Total CO2 ABG O2 Saturation ABG Base Excess FiO2 Sodium 140.8 Potassium 4.7 Chloride 109 H Carbon Dioxide 23 Anion Gap 9 BUN 70 H Creatinine 4.75 H Est GFR ( Amer) 14 L Est GFR (Non-Af Amer) 12 L Glucose 121 H POC Glucose 138 H 183 H Calcium 8.6 Iron TIBC % Saturation Ferritin Total Bilirubin Direct Bilirubin Neonat Total Bilirubin Neonat Direct Bilirubin Neonat Indirect Bili AST ALT Alkaline Phosphatase Total Protein Albumin Vitamin B12 Folate TSH Free T4 Free T3 pg/mL Urine Color Urine Appearance Urine pH Ur Specific [place] Urine Protein Urine Glucose (UA) Urine Ketones Urine Blood Urine Nitrite Urine Bilirubin Urine Urobilinogen Ur Leukocyte Esterase Urine WBC (Auto) Urine RBC (Auto) Urine Mucus (Auto) Urine Ascorbic Acid Fluid Type Fluid Source Fluid Color Fluid Appearance Fluid Viscosity Fluid WBC Fluid RBC Fluid Seg Neutrophils Fluid Lymphocytes Fluid Monocytes Fluid Eosinophils Fluid Basophils Fluid Glucose Fluid Total Protein Fluid LDH Fluid Amylase AFB Smear Slides for Path Review 08/05/18 08/05/18 08/06/18 16:00 21:09 06:19 WBC RBC Hgb Hct MCV MCH MCHC RDW Plt Count Seg Neutrophils % Lymphocytes % Monocytes % Eosinophils % Basophils % Absolute Neutrophils Absolute Lymphocytes Absolute Monocytes Absolute Eosinophils Absolute Basophils Retic Count (auto) Absolute Retic PT INR APTT Carbonic Acid HCO3/H2CO3 Ratio ABG pH ABG pCO2 ABG pO2 ABG HCO3 ABG Total CO2 ABG O2 Saturation ABG Base Excess FiO2 Sodium Potassium Chloride Carbon Dioxide Anion Gap BUN Creatinine Est GFR ( Amer) Est GFR (Non-Af Amer) Glucose POC Glucose 224 H 211 H 117 H Calcium Iron TIBC % Saturation Ferritin Total Bilirubin Direct Bilirubin Neonat Total Bilirubin Neonat Direct Bilirubin Neonat Indirect Bili AST ALT Alkaline Phosphatase Total Protein Albumin Vitamin B12 Folate TSH Free T4 Free T3 pg/mL Urine Color Urine Appearance Urine pH Ur Specific [place] Urine Protein Urine Glucose (UA) Urine Ketones Urine Blood Urine Nitrite Urine Bilirubin Urine Urobilinogen Ur Leukocyte Esterase Urine WBC (Auto) Urine RBC (Auto) Urine Mucus (Auto) Urine Ascorbic Acid Fluid Type Fluid Source Fluid Color Fluid Appearance Fluid Viscosity Fluid WBC Fluid RBC Fluid Seg Neutrophils Fluid Lymphocytes Fluid Monocytes Fluid Eosinophils Fluid Basophils Fluid Glucose Fluid Total Protein Fluid LDH Fluid Amylase AFB Smear Slides for Path Review 08/06/18 08/06/18 08/06/18 10:53 16:15 21:15 WBC RBC Hgb Hct MCV MCH MCHC RDW Plt Count Seg Neutrophils % Lymphocytes % Monocytes % Eosinophils % Basophils % Absolute Neutrophils Absolute Lymphocytes Absolute Monocytes Absolute Eosinophils Absolute Basophils Retic Count (auto) Absolute Retic PT INR APTT Carbonic Acid HCO3/H2CO3 Ratio ABG pH ABG pCO2 ABG pO2 ABG HCO3 ABG Total CO2 ABG O2 Saturation ABG Base Excess FiO2 Sodium Potassium Chloride Carbon Dioxide Anion Gap BUN Creatinine Est GFR ( Amer) Est GFR (Non-Af Amer) Glucose POC Glucose 211 H 164 H 221 H Calcium Iron TIBC % Saturation Ferritin Total Bilirubin Direct Bilirubin Neonat Total Bilirubin Neonat Direct Bilirubin Neonat Indirect Bili AST ALT Alkaline Phosphatase Total Protein Albumin Vitamin B12 Folate TSH Free T4 Free T3 pg/mL Urine Color Urine Appearance Urine pH Ur Specific [place] Urine Protein Urine Glucose (UA) Urine Ketones Urine Blood Urine Nitrite Urine Bilirubin Urine Urobilinogen Ur Leukocyte Esterase Urine WBC (Auto) Urine RBC (Auto) Urine Mucus (Auto) Urine Ascorbic Acid Fluid Type Fluid Source Fluid Color Fluid Appearance Fluid Viscosity Fluid WBC Fluid RBC Fluid Seg Neutrophils Fluid Lymphocytes Fluid Monocytes Fluid Eosinophils Fluid Basophils Fluid Glucose Fluid Total Protein Fluid LDH Fluid Amylase AFB Smear Slides for Path Review 08/07/18 08/07/18 08/07/18 06:20 07:22 07:22 WBC 6.9 RBC 3.16 L Hgb 9.7 L Hct 28.5 L MCV 90 MCH 30.8 MCHC 34.1 RDW 15.6 H Plt Count 206 Seg Neutrophils % 62.8 Lymphocytes % 20.1 Monocytes % 11.7 Eosinophils % 4.5 Basophils % 0.9 Absolute Neutrophils 4.3 Absolute Lymphocytes 1.4 Absolute Monocytes 0.8 Absolute Eosinophils 0.3 Absolute Basophils 0.1 Retic Count (auto) Absolute Retic PT INR APTT Carbonic Acid HCO3/H2CO3 Ratio ABG pH ABG pCO2 ABG pO2 ABG HCO3 ABG Total CO2 ABG O2 Saturation ABG Base Excess FiO2 Sodium 140.3 Potassium 5.0 Chloride 110 H Carbon Dioxide 22 Anion Gap 8 BUN 78 H Creatinine 4.88 H Est GFR ( Amer) 14 L Est GFR (Non-Af Amer) 11 L Glucose 133 H POC Glucose 137 H Calcium 9.1 Iron TIBC % Saturation Ferritin Total Bilirubin Direct Bilirubin Neonat Total Bilirubin Neonat Direct Bilirubin Neonat Indirect Bili AST ALT Alkaline Phosphatase Total Protein Albumin Vitamin B12 Folate TSH Free T4 Free T3 pg/mL Urine Color Urine Appearance Urine pH Ur Specific [place] Urine Protein Urine Glucose (UA) Urine Ketones Urine Blood Urine Nitrite Urine Bilirubin Urine Urobilinogen Ur Leukocyte Esterase Urine WBC (Auto) Urine RBC (Auto) Urine Mucus (Auto) Urine Ascorbic Acid Fluid Type Fluid Source Fluid Color Fluid Appearance Fluid Viscosity Fluid WBC Fluid RBC Fluid Seg Neutrophils Fluid Lymphocytes Fluid Monocytes Fluid Eosinophils Fluid Basophils Fluid Glucose Fluid Total Protein Fluid LDH Fluid Amylase AFB Smear Slides for Path Review 08/07/18 08/07/18 08/07/18 11:24 15:37 20:01 WBC RBC Hgb Hct MCV MCH MCHC RDW Plt Count Seg Neutrophils % Lymphocytes % Monocytes % Eosinophils % Basophils % Absolute Neutrophils Absolute Lymphocytes Absolute Monocytes Absolute Eosinophils Absolute Basophils Retic Count (auto) Absolute Retic PT INR APTT Carbonic Acid HCO3/H2CO3 Ratio ABG pH ABG pCO2 ABG pO2 ABG HCO3 ABG Total CO2 ABG O2 Saturation ABG Base Excess FiO2 Sodium Potassium Chloride Carbon Dioxide Anion Gap BUN Creatinine Est GFR ( Amer) Est GFR (Non-Af Amer) Glucose POC Glucose 218 H 179 H 263 H Calcium Iron TIBC % Saturation Ferritin Total Bilirubin Direct Bilirubin Neonat Total Bilirubin Neonat Direct Bilirubin Neonat Indirect Bili AST ALT Alkaline Phosphatase Total Protein Albumin Vitamin B12 Folate TSH Free T4 Free T3 pg/mL Urine Color Urine Appearance Urine pH Ur Specific [place] Urine Protein Urine Glucose (UA) Urine Ketones Urine Blood Urine Nitrite Urine Bilirubin Urine Urobilinogen Ur Leukocyte Esterase Urine WBC (Auto) Urine RBC (Auto) Urine Mucus (Auto) Urine Ascorbic Acid Fluid Type Fluid Source Fluid Color Fluid Appearance Fluid Viscosity Fluid WBC Fluid RBC Fluid Seg Neutrophils Fluid Lymphocytes Fluid Monocytes Fluid Eosinophils Fluid Basophils Fluid Glucose Fluid Total Protein Fluid LDH Fluid Amylase AFB Smear Slides for Path Review 0208/08/18 08/08/18 04:13 04:13 06:08 WBC RBC Hgb Hct MCV MCH MCHC RDW Plt Count Seg Neutrophils % Lymphocytes % Monocytes % Eosinophils % Basophils % Absolute Neutrophils Absolute Lymphocytes Absolute Monocytes Absolute Eosinophils Absolute Basophils Retic Count (auto) Absolute Retic PT INR APTT Carbonic Acid HCO3/H2CO3 Ratio ABG pH ABG pCO2 ABG pO2 ABG HCO3 ABG Total CO2 ABG O2 Saturation ABG Base Excess FiO2 Sodium 141.2 Potassium 4.6 Chloride 110 H Carbon Dioxide 21 L Anion Gap 10 BUN 80 H Creatinine 4.87 H Est GFR ( Amer) 14 L Est GFR (Non-Af Amer) 11 L Glucose 107 POC Glucose 116 H Calcium 8.9 Iron TIBC % Saturation Ferritin Total Bilirubin Direct Bilirubin Neonat Total Bilirubin Neonat Direct Bilirubin Neonat Indirect Bili AST ALT Alkaline Phosphatase Total Protein Albumin Vitamin B12 Folate TSH 4.15 Free T4 1.54 Free T3 pg/mL 2.73 L Urine Color Urine Appearance Urine pH Ur Specific [place] Urine Protein Urine Glucose (UA) Urine Ketones Urine Blood Urine Nitrite Urine Bilirubin Urine Urobilinogen Ur Leukocyte Esterase Urine WBC (Auto) Urine RBC (Auto) Urine Mucus (Auto) Urine Ascorbic Acid Fluid Type Fluid Source Fluid Color Fluid Appearance Fluid Viscosity Fluid WBC Fluid RBC Fluid Seg Neutrophils Fluid Lymphocytes Fluid Monocytes Fluid Eosinophils Fluid Basophils Fluid Glucose Fluid Total Protein Fluid LDH Fluid Amylase AFB Smear Slides for Path Review 08/08/18 08/08/18 08/08/18 11:20 15:32 22:05 WBC RBC Hgb Hct MCV MCH MCHC RDW Plt Count Seg Neutrophils % Lymphocytes % Monocytes % Eosinophils % Basophils % Absolute Neutrophils Absolute Lymphocytes Absolute Monocytes Absolute Eosinophils Absolute Basophils Retic Count (auto) Absolute Retic PT INR APTT Carbonic Acid HCO3/H2CO3 Ratio ABG pH ABG pCO2 ABG pO2 ABG HCO3 ABG Total CO2 ABG O2 Saturation ABG Base Excess FiO2 Sodium Potassium Chloride Carbon Dioxide Anion Gap BUN Creatinine Est GFR ( Amer) Est GFR (Non-Af Amer) Glucose POC Glucose 126 H 175 H 159 H Calcium Iron TIBC % Saturation Ferritin Total Bilirubin Direct Bilirubin Neonat Total Bilirubin Neonat Direct Bilirubin Neonat Indirect Bili AST ALT Alkaline Phosphatase Total Protein Albumin Vitamin B12 Folate TSH Free T4 Free T3 pg/mL Urine Color Urine Appearance Urine pH Ur Specific [place] Urine Protein Urine Glucose (UA) Urine Ketones Urine Blood Urine Nitrite Urine Bilirubin Urine Urobilinogen Ur Leukocyte Esterase Urine WBC (Auto) Urine RBC (Auto) Urine Mucus (Auto) Urine Ascorbic Acid Fluid Type Fluid Source Fluid Color Fluid Appearance Fluid Viscosity Fluid WBC Fluid RBC Fluid Seg Neutrophils Fluid Lymphocytes Fluid Monocytes Fluid Eosinophils Fluid Basophils Fluid Glucose Fluid Total Protein Fluid LDH Fluid Amylase AFB Smear Slides for Path Review Chest X-Ray 07/26/18 00:00 IMPRESSION: No pneumothorax post left thoracentesis. Minimal persistent left basilar atelectasis. Chest X-Ray 07/26/18 00:00 IMPRESSION: No pneumothorax. Minimal subsegmental atelectasis in the left base. Borderline heart size with no pulmonary edema. Thoracentesis Ultrasound 07/26/18 10:59 IMPRESSION: SUCCESSFUL THORACENTESIS USING ULTRASOUND GUIDANCE. Chest X-Ray 07/27/18 00:00 IMPRESSION: Mild left basilar pleural effusion, increased from prior, with associated atelectasis. Chest X-Ray 07/28/18 00:00 IMPRESSION: Left lung base consolidation and atelectasis with left pleural effusion. Chest Ultrasound 07/30/18 00:00 IMPRESSION: Re-accumulation of a moderate size left pleural effusion Chest X-Ray 07/30/18 00:00 IMPRESSION: 1. No significant interval changes since the prior study dated 07/28/2018. At the left lung base consolidation/atelectasis and left pleural effusion. 2. Cardiomegaly mild pulmonary vascular congestion. Chest X-Ray 08/01/18 00:00 IMPRESSION: SUCCESSFUL PLACEMENT OF A LEFT SIDED CHEST TUBE USING ULTRASOUND GUIDANCE. Thoracentesis Ultrasound 08/01/18 06:59 IMPRESSION: SUCCESSFUL PLACEMENT OF A LEFT SIDED CHEST TUBE USING ULTRASOUND GUIDANCE. Chest X-Ray 08/02/18 00:00 IMPRESSION: Left basilar pigtail catheter in place, no pleural effusion or pneumothorax. Minimal bandlike atelectasis left lung base. Chest X-Ray 08/06/18 00:00 IMPRESSION: 1. Since the previous examination dated 08/02/2018, new focal parenchymal opacity in the left lower lobe, adjacent to the fissure, may represent pneumonia or loculated fluid in the fissure. 2. The right infrahilar markings are somewhat prominent, may be on the basis of infiltrate. 3. Stable small left pleural effusion. Chest X-Ray 08/07/18 00:00 IMPRESSION: No pneumothorax post left chest tube removal Chest X-Ray 08/07/18 15:30 IMPRESSION: No pneumothorax 2 hours post chest tube removal Chest X-Ray 08/08/18 00:00 IMPRESSION: No appreciable pneumothorax. Stable trace left pleural effusion and basilar atelectasis. Monitor strip shows that the patient's heart rate is indeed between 20 and 30 bpm. Showing sinus rhythm with some APC. There is no junctional rhythm or evidence of complete heart block on the monitor strips. IMPRESSION/RECOMMENDATION: 1. Symptomatic bradycardia? Etiology. Would recommend stopping the patient's Coreg. Monitor patient on telemetry. Would recommend getting a 30-day event monitor. 2. Hypertension: Well controlled continue current antihypertensive, which do not have an SA or AV michael blocking capability. 3. Recent left pleural effusion status post thoracentesis, with no recurrence 4. Chronic kidney disease stage V: Nephrology on the case. Hypothyroidism: Although the TSH is normal it is upper normal. Hence would recommend increasing his Synthroid minimally. Occasions reviewed. Medications adjusted. Management plan discussed with attending physician. 60 minutes spent on this patient with more than 50% time spent in direct patient care. Medical decision making is of high complexity. Will follow.
[2018-08-08] MEDS: ATORVASTATIN CALCIUM 40 MG TABLET PO SCH (22:38)
[2018-08-09] MEDS: HYDRALAZINE HCL 25 MG TABLET PO SCH (05:02)
[2018-08-09] MEDS: LEVOTHYROXINE SODIUM 0.1 MG TABLET PO SCH (05:03)
[2018-08-09] MEDS: LANSOPRAZOLE 15 MG TAB.RAP.DR PO SCH (05:03)
[2018-08-09] MEDS: INSULIN LISPRO 100 UNIT/ML 3 ML VIAL SUBCUT SCH (07:42)
[2018-08-09 07:43] LABS: ANION GAP 10 (5-19); BLOOD UREA NITROGEN 80 mg/dL (7-20); CALCIUM 8.8 mg/dL (8.4-10.2); CARBON DIOXIDE 22 mmol/L (22-30); CHLORIDE 111 mmol/L (98-107); GLUCOSE 110 mg/dL (75-110); POTASSIUM 4.8 mmol/L (3.6-5.0); SODIUM 142.8 mmol/L (137-145)
[2018-08-09] MEDS: AMLODIPINE BESYLATE 2.5 MG TABLET PO SCH (09:32)
[2018-08-09] MEDS: LOSARTAN POTASSIUM 50 MG TABLET PO SCH (09:33)
[2018-08-09] MEDS: INSULIN GLARGINE,HUM.REC.ANLOG 300 UNIT/3 ML INSULN.PEN SUBCUT SCH (09:37)
[2018-08-09] MEDS: ALLOPURINOL 100 MG TABLET PO SCH (09:37)
[2018-08-09] MEDS: ASPIRIN 81 MG TABLET, CHEWABLE PO SCH (09:37)
[2018-08-09] MEDS: FUROSEMIDE 20 MG TABLET PO SCH (09:37)
[2018-08-09] MEDS: TAMSULOSIN HCL 0.4 MG CAP.SR.24H PO SCH (09:37)
--- NOTE | 2018-08-09 12:35 | PDOC PROGRESS REPORT ---
Subjective Progress Note for:: 08/09/18 Subjective:: Patient had an episode of bradycardia so telepathist, Dr. Arceo was consulted. When I saw the patient is morning he looks comfortable does not really complain of anything including shortness of breath nor chest pains. Reason For Visit: L SIDE PLEURAL EFFUSION Physical Exam Vital Signs: Temp Pulse Resp BP Pulse Ox 98.3 F 63 16 135/47 H 99 08/09/18 11:26 08/09/18 11:26 08/09/18 11:26 08/09/18 11:26 08/09/18 11:26 Intake & Output 08/08/18 08/09/18 08/10/18 06:59 06:59 06:59 Intake Total 225 1219 Output Total 625 1000 Balance -400 219 Weight 91.3 kg 92.5 kg Exam: General appearance: PRESENT: no acute distress, cooperative, well-developed, well-nourished Head exam: PRESENT: atraumatic, normocephalic Eye exam: PRESENT: conjunctiva slightly pale, PERRLA. ABSENT: scleral icterus Neck exam: ABSENT: JVD Respiratory exam: PRESENT: Diminished breath sounds. ABSENT: crackles, rales, rhonchi, unlabored, wheezes Cardiovascular exam: PRESENT: Regular rate rhythm -+S1, +S2. ABSENT: diastolic murmur, systolic murmur GI/Abdominal exam: PRESENT: normal bowel sounds, soft. ABSENT: guarding, mass, tenderness Extremities exam: ABSENT: No edema Neurological exam: PRESENT: alert, awake, oriented to person, place and time. Skin exam: PRESENT: dry, warm, Cardiovascular exam: PRESENT: +S1, +S2, systolic murmur GI/Abdominal exam: PRESENT: normal bowel sounds, soft. ABSENT: organomegaly, tenderness Results Laboratory Results: 08/07/18 07:22 08/09/18 06:49 08/09/18 06:49 Sodium 142.8 Potassium 4.8 Chloride 111 H Carbon Dioxide 22 Anion Gap 10 BUN 80 H Creatinine 5.24 H Est GFR ( Amer) 13 L Est GFR (Non-Af Amer) 11 L Glucose 110 Calcium 8.8 Impressions: Chest Ultrasound 07/30/18 00:00 IMPRESSION: Re-accumulation of a moderate size left pleural effusion Thoracentesis Ultrasound 08/01/18 06:59 IMPRESSION: SUCCESSFUL PLACEMENT OF A LEFT SIDED CHEST TUBE USING ULTRASOUND GUIDANCE. Chest X-Ray 08/08/18 00:00 IMPRESSION: No appreciable pneumothorax. Stable trace left pleural effusion and basilar atelectasis. Assessment & Plan - Diagnosis (1) Acute kidney injury superimposed on chronic kidney disease Is this a current diagnosis for this admission?: Yes Plan: Kidney function is currently stable. In preparation to being discharged home I will change the Lasix to 20 mg p.o. twice daily. No need for any renal replacement therapy at this point. Continue same management. His BUN and creatinine are mildly elevated but his GFR remains to be 11. Patient's cardiac condition including any arrhythmia including bradycardia can affect kidney function. (2) Chronic kidney disease, stage 3 Is this a current diagnosis for this admission?: Yes Plan: Stable kidney function as above. Advised patient and to keep appointment with Dr. Yanes on August 16. They will do the lab work couple of days before the appointment. Her nephrology standpoint I think the patient can still be discharged home provided that he is cleared by cardiology and pulmonary. (3) Congestive heart failure with left ventricular diastolic dysfunction Qualifiers: Congestive heart failure chronicity: acute on chronic Qualified Code(s): I50.33 - Acute on chronic diastolic (congestive) heart failure Is this a current diagnosis for this admission?: Yes Plan: Compensated. (4) Pleural effusion Is this a current diagnosis for this admission?: Yes Plan: Chest tube removed yesterday and patient has been doing fine without it. Chest x-ray did not show any reaccumulation post removal of chest tube. (5) Hypertension Qualifiers: Hypertension type: essential hypertension Qualified Code(s): I10 - Essential (primary) hypertension Is this a current diagnosis for this admission?: Yes Plan: Fairly controlled. (6) Anemia Qualifiers: Chronic kidney disease stage: stage 3 (moderate) Is this a current diagnosis for this admission?: Yes Plan: Stable. (7) Type 2 diabetes mellitus Qualifiers: Diabetes mellitus terminal clerk insulin use: unspecified terminal clerk insulin use status Diabetes mellitus complication status: with unspecified complications Qualified Code(s): E11.8 - Type 2 diabetes mellitus with unspecified complications Is this a current diagnosis for this admission?: Yes - Notes Notes: From nephrology standpoint I think patient can be discharged home provided he is cleared from cardiology and pulmonary as stated above. Again reiterated to the patient and to keep appointment with Dr. Yanes tomorrow with repeat labs 2 days prior. - Time Time with patient: 15-25 minutes
--- NOTE | 2018-08-09 12:59 | PDOC DISCHARGE SUMMARY ---
General - Admit/Disc Date/PCP Admission Date/Primary Care Provider: 07/26/18 10:03 Genaro YANES MD Discharge Date: 08/09/18 - Discharge Diagnosis (1) Pleural effusion Is this a current diagnosis for this admission?: Yes Summary: Status post chest tube placement mostly transudate fluid no sign of malignancy or any exudate Repeat the chest x-ray next week persistent problem need a pleurodesis (2) Acute renal failure Is this a current diagnosis for this admission?: Yes Summary: All stable follow with the Dr. Yanes (3) Hypertension Is this a current diagnosis for this admission?: Yes Summary: continue to current medication (4) Chronic kidney disease Is this a current diagnosis for this admission?: Yes Summary: Is creatinine around 5.2 (5) Type 2 diabetes mellitus Is this a current diagnosis for this admission?: Yes Summary: This is a current medication (6) Hyperlipemia Is this a current diagnosis for this admission?: Yes (7) Coronary artery disease Is this a current diagnosis for this admission?: Yes Summary: Stable follow with the Dr. Arceo (8) Congestive heart failure Is this a current diagnosis for this admission?: Yes Summary: Diastolic congestive heart failure currently all stable (9) Bradycardia Is this a current diagnosis for this admission?: Yes Summary: Seen by Dr. Cordero suggest hold the beta-heron and patients can be discharged and follow outpatient - Additional Information Discharge Diet: Diabetic, Other (Comments) Discharge Activity: Activity As Tolerated, Balance Activity w/Rest, Weigh Daily Prescriptions: Furosemide [Lasix 20 mg Tablet] 20 mg PO BID #60 tablet Levofloxacin [Levaquin 250 mg Tablet] 250 mg PO DAILY #7 tablet Home Medications: Allopurinol [Zyloprim 100 mg Tablet] 100 mg PO DAILY 09/28/11 Amlodipine Besylate [Norvasc 5 mg Tablet] 5 mg PO Q12 09/28/11 Aspirin [Aspirin 81 mg Chewable Tablet] 81 mg PO DAILY 09/28/11 Atorvastatin Calcium [Lipitor 40 mg Tablet] 40 mg PO QHS 07/26/18 Calcitriol [Rocaltrol] 0.25 mcg PO MOFR@1000 07/26/18 Ferrous Sulfate [Feosol] 325 mg PO DAILY 07/26/18 Hydralazine HCl [Apresoline 25 mg Tablet] 25 mg PO TID 07/26/18 Insulin Aspart [Novolog Flexpen] See Protocol SQ AC PRN 07/26/18 Insulin Glargine,Hum.rec.anlog [Lantus Insulin 100 Unit/1 ml 10 ml] See Protocol SQ BID 07/26/18 Levothyroxine Sodium [Synthroid 0.1 mg Tablet] 0.1 mg PO Q6AM 07/26/18 Losartan Potassium [Cozaar 100 mg Tablet] 100 mg PO DAILY 07/26/18 Omeprazole 20 mg PO Q6AM 07/26/18 Sodium Bicarbonate [Antacid] 650 mg PO BID 07/26/18 Tamsulosin HCl [Flomax] 0.4 mg PO DAILY 07/26/18 Furosemide [Lasix 20 mg Tablet] 20 mg PO BID #60 tablet 08/08/18 Levofloxacin [Levaquin 250 mg Tablet] 250 mg PO DAILY #7 tablet 08/08/18 History of Present Illness History of Present Illness: KIMBERLY CRAIG is a 83 year old male This is a 83-year-old male with a history of chronic kidney disease stage IV hypertension type 2 diabetes mellitus congestive heart failure multiple medical issues recently started with the cough congestions 4 weeks back diagnosed with a pneumonia start on Omnicef Patient not feeling well patient's baseline creatinine was 2.7 is getting worse to the 4.7 Patient still feeling tired fatigue Patient's blood pressure is also elevated adjust the blood pressure medication as outpatient Patient seen by Dr. 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 had a echocardiogram done 2 days back was all stable with normal EF Patient had a CT of the chest done yesterday with source the left-sided pleural effusion with the patient's not feeling well decided to admit in the hospital for thoracocentesis and further evaluations Hospital Course Hospital Course: This is a 83-year-old male with a significant medical problems as above admitted because of the pleural effusion short of breath and worsening the kidney functions patient underwent for the thoracocentesis with suggest that transudate fluid due to the underlying kidney functions worsening and congestive heart failure but no sign of any exudate Since cytology also negative for any malignancy Patient seen by the pulmonary Dr. Taylor and suggest to continue some antibiotic to cover some any underlying infections Patients also seen by Dr. Yanes nephrology Patients also have a recurrent effusion underwent for the chest tube placement by radiology and after remove the chest tubes patient's chest x-ray remained stable Patient otherwise doing well no sign of any fever or chills Patient does not require any oxygen's Patient's walk in the hallway without any problems Patient had episode of the bradycardia to up to reach the [address] Cordero was consulted and suggest to hold the beta-heron and patient heart rate remains 60 range Patient's blood pressure was all stable given the during the heart rate was low and patient's does not have any symptoms only one episodes Patients at this point Dr. Arceo and other consultants suggest can be discharged and discussed with the patient and the family and the regarding the hold the beta-heron continues close monitor Will repeat the chest x-ray in 1 week as per discussed with the Dr. Taylor for persistent fluid collections that need pleurodesis Physical Exam Vital Signs: Temp Pulse Resp BP Pulse Ox 98.3 F 63 16 135/47 H 99 08/09/18 11:26 08/09/18 11:26 08/09/18 11:26 08/09/18 11:26 08/09/18 11:26 Intake & Output 08/08/18 08/09/18 08/10/18 06:59 06:59 06:59 Intake Total 225 1219 Output Total 625 1000 Balance -400 219 Weight 91.3 kg 92.5 kg General appearance: PRESENT: no acute distress, well-developed, well-nourished Head exam: PRESENT: atraumatic, normocephalic Eye exam: PRESENT: conjunctiva pink, EOMI, PERRLA. ABSENT: scleral icterus Ear exam: PRESENT: normal external ear exam Mouth exam: PRESENT: moist, tongue midline Neck exam: PRESENT: full ROM. ABSENT: carotid bruit, JVD, lymphadenopathy, thyromegaly Respiratory exam: PRESENT: clear to auscultation bonifacio Cardiovascular exam: PRESENT: RRR. ABSENT: diastolic murmur, rubs, systolic murmur Vascular exam: PRESENT: normal capillary refill GI/Abdominal exam: PRESENT: normal bowel sounds, soft. ABSENT: distended, guarding, mass, organolmegaly, rebound, tenderness Rectal exam: PRESENT: deferred Extremities exam: ABSENT: pedal edema Musculoskeletal exam: PRESENT: ambulatory Neurological exam: PRESENT: alert, awake, oriented to person, oriented to place, oriented to time, oriented to situation, CN II-XII grossly intact. ABSENT: motor sensory deficit Psychiatric exam: PRESENT: appropriate affect, normal mood. ABSENT: homicidal ideation, suicidal ideation Skin exam: PRESENT: dry, intact, warm. ABSENT: cyanosis, rash Results Laboratory Results: 08/07/18 07:22 08/09/18 06:49 08/09/18 06:49 Sodium 142.8 Potassium 4.8 Chloride 111 H Carbon Dioxide 22 Anion Gap 10 BUN 80 H Creatinine 5.24 H Est GFR ( Amer) 13 L Est GFR (Non-Af Amer) 11 L Glucose 110 Calcium 8.8 Impressions: Chest Ultrasound 07/30/18 00:00 IMPRESSION: Re-accumulation of a moderate size left pleural effusion Thoracentesis Ultrasound 08/01/18 06:59 IMPRESSION: SUCCESSFUL PLACEMENT OF A LEFT SIDED CHEST TUBE USING ULTRASOUND GUIDANCE. Chest X-Ray 08/08/18 00:00 IMPRESSION: No appreciable pneumothorax. Stable trace left pleural effusion and basilar atelectasis. Qualifiers - * PATIENT BEING DISCHARGED WITH ANY OF THE FOLLOWING DIAGNOSIS: No VTE patient discharged on overlapping Therapy?: Yes Plan Time Spent: Greater than 30 Minutes - Follow outpatient as able Follow in 1 week we will repeat the chest x-ray Hold the beta-heron
[2018-08-09 13:48] VITALS: BP 120/41
--- NOTE | 2018-08-09 20:08 | Progress Note ---
Provider Note Provider Note: CARDIOLOGY PROGRESS NOTE by Dr. Rafaela Mantilla on 08/09/2018.
== END 2018-08-09 14:37 | disposition home or self-care (01) | DRG 292 ==
LOC: ER 09:10 → EH 10:03 → 4S 17:50
PROVIDERS: ADMIT Family Medicine; ATTEND Family Medicine
PROC: 0W9B3ZX Drainage of Left Pleural Cavity, Percutaneous Approach, Diagnostic (ICD-10-PCS; principal; 2018-07-26)
PROC: 0B9P30Z Drainage of Left Pleura with Drainage Device, Percutaneous Approach (ICD-10-PCS; 2018-08-01)
DX: I13.0 Hypertensive heart and chronic kidney disease with heart failure and stage 1 through stage 4 chronic kidney disease, or unspecified chronic kidney disease (principal); N18.4 Chronic kidney disease, stage 4 (severe); J91.8 Pleural effusion in other conditions classified elsewhere; N17.9 Acute kidney failure, unspecified; I50.32 Chronic diastolic (congestive) heart failure; E11.22 Type 2 diabetes mellitus with diabetic chronic kidney disease; E78.5 Hyperlipidemia, unspecified; R00.1 Bradycardia, unspecified; I25.10 Atherosclerotic heart disease of native coronary artery without angina pectoris; D63.1 Anemia in chronic kidney disease; K21.9 Gastro-esophageal reflux disease without esophagitis; M10.9 Gout, unspecified; Z79.4 Long term (current) use of insulin; Z79.899 Other long term (current) drug therapy; Z87.891 Personal history of nicotine dependence
CPT/HCPCS: 32555; 32557; 36415; 71045; 71046; 71250; 76604; 80048; 80053; 81001; 82150; 82607; 82728; 82746; 82803; 82945; 82962; 83036; 83540; 83550; 83615; 83735; 84157; 84439; 84443; 84481; 85025; 85027; 85045; 85610; 85730; 87015; 87070; 87075; 87116; 87205; 87206; 89050; 93005; 93010; 93306; 94799; 99284; C1892; J0692; J1815; J1940

== ENCOUNTER → 2018-08-16 | Outpatient (CLI) | payer MEDICARE ==
--- NOTE | 2018-08-16 11:29 | RADIOLOGY REPORT (SQ) ---
EXAM DESCRIPTION: CHEST PA/LATERAL COMPLETED DATE/TIME: 08/16/2018 9:30 am REASON FOR STUDY: PLEURAL EFFUSION, NOT ELSEWHERE CLASSIFIED COMPARISON: 08/08/2018 EXAM PARAMETERS: NUMBER OF VIEWS: two views TECHNIQUE: Digital Frontal and Lateral radiographic views of the chest acquired. RADIATION DOSE: NA LIMITATIONS: none FINDINGS: LUNGS AND PLEURA: No opacities, masses or pneumothorax. No pleural effusion. MEDIASTINUM AND HILAR STRUCTURES: No masses or contour abnormalities. HEART AND VASCULAR STRUCTURES: Heart normal size. No evidence for failure. BONES: No acute findings. HARDWARE: None in the chest. OTHER: No other significant finding. IMPRESSION: NO SIGNIFICANT RADIOGRAPHIC FINDING IN THE CHEST. TECHNICAL DOCUMENTATION: JOB ID: [id number] [employer]- All Rights Reserved Reading location - IP/workstation name: [email or web address]
== END ==
LOC: OD 09:12
PROVIDERS: ATTEND Family Medicine
DX: J90 Pleural effusion, not elsewhere classified (principal)
CPT/HCPCS: 71046

== ENCOUNTER → 2018-08-31 | Outpatient (CLI) | payer MEDICARE ==
[2018-08-31 13:23] LABS: ABSOLUTE EOSINOPHILS # (AUTO) 0.3 10^3/uL (0.0-0.6); ABSOLUTE MONOCYTES (AUTO) 0.5 10^3/uL (0.1-1.4); ABSOLUTE NEUT (AUTO) 3.1 10^3/uL (1.7-8.2); BASOPHILS % (AUTO) 0.6 % (0-2); EOSINOPHILS % (AUTO) 5.2 % (0-6); HEMATOCRIT 30.2 % (37.9-51.0); HEMOGLOBIN 10.2 g/dL (13.5-17.0); LYMPHOCYTES % (AUTO) 32.9 % (13-45); MEAN CORPUSCULAR HEMOGLOBIN 30.8 pg (27.0-33.4); MEAN CORPUSCULAR HGB CONC 33.9 g/dL (32.0-36.0); MEAN CORPUSCULAR VOLUME 91 fl (80-97); MONOCYTES % (AUTO) 8.8 % (3-13); PLATELET COUNT 157 10^3/uL (150-450); RED BLOOD COUNT 3.32 10^6/uL (4.35-5.55); RED CELL DISTRIBUTION WIDTH 15.8 % (11.5-14.0); SEGMENTED NEUTROPHILS % (AUTO) 52.5 % (42-78); TOTAL CELLS COUNTED % (AUTO) 100 %
[2018-08-31 13:43] LABS: ANION GAP 10 (5-19); BLOOD UREA NITROGEN 74 mg/dL (7-20); CALCIUM 9.2 mg/dL (8.4-10.2); CARBON DIOXIDE 24 mmol/L (22-30); CHLORIDE 109 mmol/L (98-107); GLUCOSE 149 mg/dL (75-110); PHOSPHORUS 4.3 mg/dL (2.5-4.5)
== END ==
LOC: OD 13:04
PROVIDERS: ATTEND Internal Medicine Nephrology
DX: I13.0 Hypertensive heart and chronic kidney disease with heart failure and stage 1 through stage 4 chronic kidney disease, or unspecified chronic kidney disease (principal); N18.3 Chronic kidney disease, stage 3 (moderate); I50.9 Heart failure, unspecified
CPT/HCPCS: 36415; 80048; 83735; 83970; 84100; 85025

== ENCOUNTER → 2018-11-13 | Outpatient (CLI) | payer MEDICARE ==
[2018-11-13 12:44] LABS: HEMATOCRIT 30.1 % (37.9-51.0); HEMOGLOBIN 10.2 g/dL (13.5-17.0); MEAN CORPUSCULAR HEMOGLOBIN 31.3 pg (27.0-33.4); MEAN CORPUSCULAR HGB CONC 33.8 g/dL (32.0-36.0); MEAN CORPUSCULAR VOLUME 93 fl (80-97); PLATELET COUNT 183 10^3/uL (150-450); RED BLOOD COUNT 3.26 10^6/uL (4.35-5.55); RED CELL DISTRIBUTION WIDTH 15.4 % (11.5-14.0); WHITE BLOOD COUNT 5.8 10^3/uL (4.0-10.5)
[2018-11-13 13:00] LABS: ANION GAP 11 (5-19); BLOOD UREA NITROGEN 79 mg/dL (7-20); CALCIUM 9.3 mg/dL (8.4-10.2); CARBON DIOXIDE 20 mmol/L (22-30); CHLORIDE 112 mmol/L (98-107); GLUCOSE 195 mg/dL (75-110); IRON(TIBC) 71.7 ug/dL (49-181); SODIUM 143.1 mmol/L (137-145)
== END ==
LOC: OD 11:30
PROVIDERS: ATTEND Internal Medicine Nephrology
DX: I12.9 Hypertensive chronic kidney disease with stage 1 through stage 4 chronic kidney disease, or unspecified chronic kidney disease (principal); N18.4 Chronic kidney disease, stage 4 (severe); D64.3 Other sideroblastic anemias; D63.1 Anemia in chronic kidney disease
CPT/HCPCS: 36415; 80048; 82728; 83540; 83550; 84443; 85027

== ENCOUNTER → 2019-03-05 | Outpatient (CLI) | payer MEDICARE ==
[2019-03-05 15:42] LABS: ABSOLUTE EOSINOPHILS # (AUTO) 0.3 10^3/uL (0.0-0.6); ABSOLUTE LYMPHOCYTES (AUTO) 1.6 10^3/uL (0.5-4.7); ABSOLUTE MONOCYTES (AUTO) 0.7 10^3/uL (0.1-1.4); ABSOLUTE NEUT (AUTO) 5.3 10^3/uL (1.7-8.2); BASOPHILS % (AUTO) 0.5 % (0-2); EOSINOPHILS % (AUTO) 3.6 % (0-6); HEMATOCRIT 28.3 % (37.9-51.0); HEMOGLOBIN 9.7 g/dL (13.5-17.0); LYMPHOCYTES % (AUTO) 20.5 % (13-45); MEAN CORPUSCULAR HEMOGLOBIN 31.5 pg (27.0-33.4); MEAN CORPUSCULAR HGB CONC 34.1 g/dL (32.0-36.0); MEAN CORPUSCULAR VOLUME 92 fl (80-97); MONOCYTES % (AUTO) 8.5 % (3-13); PLATELET COUNT 197 10^3/uL (150-450); RED BLOOD COUNT 3.07 10^6/uL (4.35-5.55); SEGMENTED NEUTROPHILS % (AUTO) 66.9 % (42-78); TOTAL CELLS COUNTED % (AUTO) 100 %
[2019-03-05 16:13] LABS: ALBUMIN 3.2 g/dL (3.5-5.0); ALKALINE PHOSPHATASE 83 U/L (38-126); ANION GAP 11 (5-19); ASPARTATE AMINO TRANSFERASE 17 U/L (17-59); BILIRUBIN,DIRECT 0.3 mg/dL (0.0-0.4); BILIRUBIN,TOTAL 0.4 mg/dL (0.2-1.3); BLOOD UREA NITROGEN 82 mg/dL (7-20); CALCIUM 8.6 mg/dL (8.4-10.2); CARBON DIOXIDE 21 mmol/L (22-30); CHLORIDE 112 mmol/L (98-107); GLUCOSE 137 mg/dL (75-110); POTASSIUM 4.4 mmol/L (3.6-5.0); TOTAL PROTEIN 5.7 g/dL (6.3-8.2)
== END ==
LOC: OD 14:25
PROVIDERS: ATTEND Family Medicine
DX: R19.7 Diarrhea, unspecified (principal)
CPT/HCPCS: 36415; 80053; 85025

== ENCOUNTER 2020-06-30 08:18 | Day surgery (SDC) | payer MEDICARE ==
[2020-06-26 09:26] LABS: HEMATOCRIT 32.2 % (37.9-51.0); HEMOGLOBIN 11.3 g/dL (13.5-17.0); MEAN CORPUSCULAR HEMOGLOBIN 33.1 pg (27.0-33.4); MEAN CORPUSCULAR VOLUME 95 fl (80-97); PLATELET COUNT 215 10^3/uL (150-450); RED BLOOD COUNT 3.41 10^6/uL (4.35-5.55); RED CELL DISTRIBUTION WIDTH 14.3 % (11.5-14.0); WHITE BLOOD COUNT 5.8 10^3/uL (4.0-10.5)
[2020-06-26 09:34] LABS: INTERNATIONAL RATION (INR) 0.92; PROTHROMBIN TIME 12.6 SEC (11.4-15.4)
[2020-06-26 09:35] LABS: PARTIAL THROMBOPLASTIN TIME 33.1 SEC (23.5-35.8)
[2020-06-26 09:46] LABS: ANION GAP 7 (5-19); BLOOD UREA NITROGEN 37 mg/dL (7-20); CALCIUM 9.2 mg/dL (8.4-10.2); CARBON DIOXIDE 27 mmol/L (22-30); CHLORIDE 105 mmol/L (98-107); GLUCOSE 228 mg/dL (75-110); POTASSIUM 4.7 mmol/L (3.6-5.0)
--- NOTE | 2020-06-26 19:36 | EKG REPORT ---
SEVERITY:- OTHERWISE NORMAL ECG - SINUS ARRHYTHMIA, RATE [id number] : Confirmed by: Rafaela Arceo MD 26-Jun-2020 19:35:35
[~2020-06-30 08:18] MED LIST: CEFAZOLIN 1 GM/D5W RTU 1 GM/50 ML RTUPB IV ONE; CEFAZOLIN 1 GM/D5W RTU 1 GM/50 ML RTUPB IV PRN; LIDOCAINE 0.5% INJ-PF (5 MG/ML) 50 ML SDV SUBCUT PRN; NORMAL SALINE 1000 ML (RENAL PATIENTS) IV PRN
[2020-06-30 09:15] LABS: POTASSIUM 4.2 mmol/L (3.6-5.0)
[2020-06-30] MEDS ORDERED: MIDAZOLAM 2 MG/2 ML INJ ONE (09:29)
[2020-06-30] MEDS ORDERED: PROPOFOL INJ 200 MG/20 ML VIAL IV ONE (09:29)
[2020-06-30] MEDS ORDERED: FENTANYL CITRATE INJ/PF 100 MCG/2 ML AMPUL ONE (09:29)
[2020-06-30] MEDS ORDERED: LIDOCAINE 1%/EPINEPHRINE INJ 20 ML VIAL ONE (09:31)
[2020-06-30] MEDS ORDERED: SODIUM BICARBONATE 8.4% INJ 50 MEQ/50 ML DISP.SYRIN ONE (09:31)
[2020-06-30] MEDS ORDERED: PROMETHAZINE HCL INJ 25 MG/1 ML VIAL IV PRN ×2 (10:53)
[2020-06-30] MEDS ORDERED: OXYCODONE-ACETAMINOPHEN 5-325 MG TABLET PO PRN ×2 (10:53)
[2020-06-30] MEDS ORDERED: ONDANSETRON HCL INJ/PF 4 MG/2 ML SDV IV PRN (10:53)
[2020-06-30] MEDS ORDERED: MORPHINE SULFATE 10 MG/ML INJ IV PRN (10:53)
[2020-06-30] MEDS ORDERED: DIPHENHYDRAMINE HCL 50 MG/ML VIAL IV PRN (10:53)
[2020-06-30] MEDS ORDERED: MEPERIDINE HCL/PF INJ 25 MG/1 ML DISP.SYRIN IV PRN (10:53)
[2020-06-30] MEDS ORDERED: FENTANYL CITRATE INJ/PF 100 MCG/2 ML AMPUL IV PRN ×3 (10:53)
--- NOTE | 2020-06-30 11:37 | Operative Report ---
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 Patient was brought into the operating room and placed on the operating room table in a sloppy lateral position. Patient was then prepped with a Betadine scrub and Betadine solution and draped in a sterile and aseptic manner. The area was then marked. 12 O'clock was marked towards [the groin 3 O'clock was marked towards the posterior thigh 6:00 was marked towards the knee 9:00 was marked towards the anterior thigh The area was then anesthetized with 1% lidocaine with epinephrine and bicarbonate for its anesthetic and hemostatic effects. The area was then excised and marked at 12:00. The specimen was sent for frozen section. The results came back that the deep and lateral margins were free. We had considered a primary closure but this would go against the natural relaxed skin tension lines. A primary closure would be too tight and would have increased chance of dehiscence. This will leave more of a scar so we decided to use a rotation flap reconstruction which would camouflage the scar better and take tension off of the closure so that would be less chances of complications. It was felt that by using this flap this took tension off of the closure and also brought the scar away from the popliteal fossa. This allowed us to close and still be able to allow the patient to have active flexion and extension. Then we went ahead and outlined the flap and anesthetized it. We then incised the flap and developed a flap maintaining the subdermal plexus. Then we undermined 360 to allow for plate like scarring and minimize trap door deformity. Throughout the case hemostasis was achieved with the bipolar. We then sutured the flap into its new position using 3-0 Vicryl for the subcutaneous and deep dermis. Skin was closed with a [running subcuticular suture] stitch using 3-0 PDS with knots being tied on the outside. And was 3-0 PDS suture was used for support and placed in the central area of the incision. We then applied tincture benzoin and Steri-Strips followed by a light pressure dressing. Patient was then reversed from anesthesia and taken to the [facility] for recovery. The patient tolerated well. There were no complications. Lesion size was approximately 2 cm please see pathology for actual size. Portions of this note may be dictated using [employer] voice recognition software. Occasional variations and spelling and vocabulary could be possible and are unintentional. Additionally, there is a chance that some errors may not be caught or corrected. Please notify the author of any discrepancies noted or if any statements are unclear. Subjective: No complaints Objective: Vital signs stable afebrile No bleeding Dressing intact Assessment and plan: Doing well. Elevate the operative site. Resume medications. Take antibiotics for 1 day Follow-up Full instructions were given to the patient and family and they understand Portions of this note may be dictated using [employer] voice recognition software. Occasional variations and spelling and vocabulary could be possible and are unintentional. Additionally, there is a chance that some errors may not be caught or corrected. Please notify the offer of any discrepancies noted or if any statements are unclear.
--- NOTE | 2020-06-30 11:40 | Discharge Summary ---
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 Leave the steri-strip tapes on for 5 days, then removal. Then cleaning wound with peroxide and apply bacitracin 3 times per day. Antibiotics for 1 day, then discontinue. Elevate operative area to decrease swelling. Do not strain, or lift heavy objects. Call for excessive bleeding, increased temperature of 101, uncontrolled pain, or excessive nausea or vomiting. You may reach Dr. Paz through his office at [phone]. In the event of an emergency after hours, then contact Dr. Paz through [facility]. Return to the office for a postop check on . The time will be scheduled by the nursing staff of [facility] prior to discharge. Please give the patient a copy of their labs and EKG so they can bring this to their PMD. Thank you Portions of this note may be dictated using [employer] voice recognition software. Occasional variations and spelling and vocabulary could be possible and are unintentional. Additionally, there is a chance that some errors may not be caught or corrected. Please notify the offer of any discrepancies noted or if any statements are unclear. Referrals: LETITIA RAMIREZ MD [Primary Care Provider] - Discharge Diet: As Tolerated Discharge Activity: No Lifting/Push/Pulling Report the Following to Your Physician Immediately: Unusual Bleeding - Use caution on fully extending the leg. Resume any medications stopped for the surgery starting back tomorrow. Follow-up Monday. Take top dressing off in 2 days. Take Steri-Strips off and 5 days or leave them on if they are clean and we will remove them on Monday.
--- NOTE | 2020-06-30 12:34 | EKG REPORT ---
SEVERITY:- ABNORMAL ECG - SINUS RHYTHM ABNORMAL T, CONSIDER ISCHEMIA, LATERAL LEADS : Confirmed by: Fabian Knapp MD 30-Jun-2020 12:33:24
[2020-06-30 13:10] VITALS: BP 146/75
== END 2020-06-30 13:05 | disposition home or self-care (01) ==
LOC: OROUT 08:18
PROVIDERS: ATTEND Plastic Surgery
DX: C44.722 Squamous cell carcinoma of skin of right lower limb, including hip (principal); I12.0 Hypertensive chronic kidney disease with stage 5 chronic kidney disease or end stage renal disease; E11.22 Type 2 diabetes mellitus with diabetic chronic kidney disease; N18.6 End stage renal disease; K21.9 Gastro-esophageal reflux disease without esophagitis; Z99.2 Dependence on renal dialysis; Z79.899 Other long term (current) drug therapy; Z79.01 Long term (current) use of anticoagulants; Z01.812 Encounter for preprocedural laboratory examination; Z20.822 Contact with and (suspected) exposure to COVID-19; Z79.4 Long term (current) use of insulin; Z85.828 Personal history of other malignant neoplasm of skin; Z86.018 Personal history of other benign neoplasm
CPT/HCPCS: 14020; 93005 ×2; 36415 ×2; 82947; 84132; 85027; 85610; 85730; 80048; 88305 ×2; 88331 ×2; 93010 ×2; 00300; U0003; J2250; J0690; J3490 ×2; J2704; C9803; 300; 87635; J3010